=== PATIENT | male | born 1935 | race Caucasian/White ===

== ENCOUNTER 2018-05-09 07:57 | Emergency (ER) | payer MEDICARE, BC ==
[2018-05-09 08:13] VITALS: BP 118/71
[2018-05-09] MEDS ORDERED: Lidocaine 2% Jelly 10 ML Urojet MUCMEM ONE (08:14)
--- NOTE | 2018-05-09 08:16 | EDM.PDOC ---
ED HPI GENERAL MEDICAL PROBLEM - General Chief Complaint: Genitourinary Problem Stated Complaint: UNABLE TO VOID THE LAST 12 HOURS Time Seen by Provider: 05/09/18 08:09 Source of Information: Reports: Patient, Family (), RN Notes Reviewed History Limitations: Reports: No Limitations - History of Present Illness INITIAL COMMENTS - FREE TEXT/NARRATIVE: According to the patient and his , the patient was having some difficulty urinating yesterday, with a delayed and decreased stream. He was then unable to urinate at all after around 20:00, and started feeling some discomfort around 22 :00. He now presents in significant discomfort, still unable to urinate. The patient slipped and broke his distal left fibula on 04/29/2018. He is scheduled for ORIF per Dr. Fernandez tomorrow, and has been on tramadol, but he denies taking any anticholinergic medications. Review of the medical records indicates that the patient is on tamsulosin ( Flomax), most likely due to BPH, although the patient was unaware that he has a prostate issue. The patient has a history of bladder cancer, treated by Dr. Souleymane Cotton. The patient's PCP is Dr. Neely. Pelvic Pain Score (Numeric/FACES): 7 - Related Data Allergies Allergy/AdvReac Type Severity Reaction Status Date / Time codeine Allergy Rash Verified 05/07/18 13:23 Home Meds: Home Meds Aspirin [Halfprin] 81 mg PO DAILY 05/21/15 [History] Lisinopril 2.5 mg PO DAILY 05/21/15 [History] Metoprolol Succinate [Toprol XL] 25 mg PO DAILY 05/21/15 [History] Omeprazole 20 mg PO DAILY 05/21/15 [History] Simvastatin [Zocor] 40 mg PO DAILY 05/21/15 [History] metFORMIN HCl [Metformin HCl] 500 mg PO BID 05/21/15 [History] Tamsulosin [Flomax] 0.4 mg PO DAILY 04/29/18 [History] traMADol [Ultram] 100 mg PO Q12H PRN 05/07/18 [History] Saxagliptin HCl [Onglyza] 5 mg PO DAILY 05/09/18 [History] Past Medical History Cardiovascular History: Reports: High Cholesterol, Hypertension Gastrointestinal History: Reports: Bowel Obstruction, GERD Genitourinary History: Reports: BPH, Renal Calculus Musculoskeletal History: Reports: Fracture (left distal fibula), Osteoarthritis Endocrine/Metabolic History: Reports: Diabetes, Type II Oncologic (Cancer) History: 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 (s/p CTx), Squamous Cell Carcinoma (face, left arm) - Infectious Disease History Infectious Disease History: Reports: Other (See Below) Other Infectious Disease History: Staph, non MRSA - Past Surgical History HEENT Surgical History: Reports: Cataract Surgery (bilateral), Detached Retina ( left), Oral Surgery (wisdom teeth extraction) GI Surgical History: Reports: Appendectomy, Colonoscopy (x 3 or 4), EGD (x 2), Other (See Below) (Exploratory laparotomy) Male Surgical History: Reports: Circumcision, Other (See Below) (Cystoscopy) Neurological Surgical History: Reports: Lumbar Spine (microdiscectomy) Musculoskeletal Surgical History: Reports: Shoulder Surgery (bilateral, open), Other (See Below) (Left foot tendon repair) Oncologic Surgical History: Reports: Other (See Below) (SCC excised from face, left arm) Social & Family History - Family History Cardiac: Reports: Heart Failure Endocrine/Metabolic: Reports: Diabetes, type II Oncologic: Reports: Colon - Tobacco Use Smoking Status *Q: Former Smoker - Caffeine Use Caffeine Use: Reports: Coffee, Tea - Alcohol Use Alcohol Use History: Yes Alcohol Use Frequency: Rarely - Recreational Drug Use Recreational Drug Use: No - Living Situation & Occupation Living situation: Reports: , with Spouse Occupation: Retired ED ROS GENERAL - Review of Systems Review Of Systems: ROS reveals no pertinent complaints other than HPI. ED EXAM, RENAL/ - Physical Exam Exam: See Below Exam Limited By: No Limitations General Appearance: Alert, WD/WN, No Apparent Distress Eye Exam: Bilateral Eye: EOMI, Normal Inspection Ears: Normal External Exam, Hearing Loss Nose: Normal Inspection Throat/Mouth: Normal Inspection, Normal Lips, Normal Voice, No Airway Compromise Head: Atraumatic, Normocephalic Neck: Normal Inspection, Full Range of Motion Respiratory/Chest: No Respiratory Distress, Lungs Clear, Normal Breath Sounds, No Accessory Muscle Use Cardiovascular: Normal Peripheral Pulses, Regular Rate, Rhythm, No Gallop, No JVD, No Murmur, No Rub GI/Abdominal: Normal Bowel Sounds, Soft, No Organomegaly, No Distention, No Abnormal Bruit, No Mass, Tender (Suprapubic only. Nontender elsewhere.), Hernia (Several, ventral), Other (Several well-healed anterior abdominal wall surgeries ) (Male) Exam: Deferred Rectal (Males) Exam: Deferred Back Exam: Normal Inspection, Full Range of Motion, NT Extremities: Normal Range of Motion, Normal Capillary Refill, Other (Left leg/ foot in splint) Neurological: Alert, Oriented, Normal Cognition, No Motor/Sensory Deficits Psychiatric: Normal Affect Skin Exam: Warm, Dry, Intact, Normal Color, No Rash Course - Vital Signs Last Recorded V/S: Last Vital Signs Temp 36.2 C 05/09/18 08:10 Pulse 82 05/09/18 08:10 Resp 20 05/09/18 08:10 BP 118/71 05/09/18 08:10 Pulse Ox 96 05/09/18 08:10 - Orders/Labs/Meds Orders: Active Orders 24 hr Category Date Time Status Bladder Scan [RC] ASDIRECTED Care 05/09/18 08:09 Active Insert Fishman Catheter [Insert Urinary Catheter] [OM.PC] Care 05/09/18 08:15 Ordered Q24H Urinary Catheter Assessment [RC] ASDIRECTED Care 05/09/18 08:15 Active Meds: Medications Discontinued Medications Generic Name Dose Route Start Last Admin Trade Name Freq PRN Reason Stop Dose Admin Lidocaine HCl 10 ml 05/09/18 08:14 05/09/18 08:21 Xylocaine 2% Jelly MUCMEM 05/09/18 08:15 10 ml ONETIME ONE Administration - Re-Assessments/Exams Free Text/Narrative Re-Assessment/Exam: 05/09/18 08:15 Notified by Charu GREGORY that the bladder scan revealed 516 mL of postvoid urinary retention. The cause is unclear, but is likely due to BPH. It does not sound like the patient has taken any anticholinergics recently. I have ordered a Urojet and a Fishman catheter to a leg bag, and will have the patient follow-up with his Urologist, Dr. Cotton. He is to undergo ORIF of his left ankle per Dr. Fernandez tomorrow; I don't see that the Fishman catheter placed today will impact that at all. Departure - Departure Time of Disposition: 08:40 Disposition: Home, Self-Care 01 Condition: Good Clinical Impression: Urinary retention - Discharge Information *PRESCRIPTION DRUG MONITORING PROGRAM REVIEWED*: Not Applicable *COPY OF PRESCRIPTION DRUG MONITORING REPORT IN PATIENT BRENNEN: Not Applicable Instructions: Acute Urinary Retention, Male, [id number] Referrals: Damon Sorto MD [Primary Care Provider] - Souleymane Cotton MD [Physician] - Forms: ED Department Discharge Additional Instructions: You were seen in the emergency room after being unable to urinate since around 8 :00 last night. In the ER, a bladder scan found 516 mL of retained urine. A Fishman catheter was placed to a leg bag. Empty the leg bag periodically, as directed by the nurse. The cause of your inability to urinate is unclear, but is likely due to an enlarged prostate. Follow-up with your Urologist, Dr. Souleymane Cotton, at the next available appointment. If any other problems, please do not hesitate to return to the ER. - My Orders Last 24 Hours: My Active Orders 05/09/18 08:09 Bladder Scan [RC] ASDIRECTED 05/09/18 08:15 Insert Fishman Catheter [Insert Urinary Catheter] [OM.PC] Q24H Urinary Catheter Assessment [RC] ASDIRECTED - Assessment/Plan Last 24 Hours: My Active Orders 05/09/18 08:09 Bladder Scan [RC] ASDIRECTED 05/09/18 08:15 Insert Fishman Catheter [Insert Urinary Catheter] [OM.PC] Q24H Urinary Catheter Assessment [RC] ASDIRECTED
== END 2018-05-09 09:23 | disposition home or self-care (01) ==
LOC: JD.ED 07:57
DX: R33.9 Retention of urine, unspecified (principal); E78.00 Pure hypercholesterolemia, unspecified; I10 Essential (primary) hypertension; E11.9 Type 2 diabetes mellitus without complications; Z79.84 Long term (current) use of oral hypoglycemic drugs; Z87.891 Personal history of nicotine dependence; Z79.82 Long term (current) use of aspirin; Z79.899 Other long term (current) drug therapy
CPT/HCPCS: 51702; 99283; 99284-25

== ENCOUNTER 2018-05-10 10:46 | Inpatient (IN) | payer MEDICARE, BC ==
[~2018-05-10 10:46] MED LIST: Lactated Ringers 1,000 ML IV SCH; Lidocaine 1%/Sod Bicarbonate in NS 8.4% 1 ML Syringe IDERM PRN; Sodium Chloride 0.9% 10 ML Syringe FLUSH PRN
--- NOTE | 2018-05-10 11:31 | PCM.PREANE ---
Preanesthetic Assessment - Procedure Proposed Procedure: orif left bimalleolar fx with syndosmosis - Anesthesia/Transfusion/Family Hx Anesthesia History: Prior Anesthesia Without Reaction Family History of Anesthesia Reaction: No Transfusion History: No Prior Transfusion(s) - Review of Systems General: No Symptoms Pulmonary: Shortness of Breath (always short of breath) Cardiovascular: Dyspnea on Exertion Gastrointestinal: No Symptoms Neurological: No Symptoms Other: Reports: Diabetes - Physical Assessment NPO Status Date: 05/10/18 NPO Status Time: 00:30 (sip with pill) Pulse: 71 O2 Sat by Pulse Oximetry: 95 Respiratory Rate: 16 Blood Pressure: 111/64 Temperature: 98.8 F Height: 5 ft 6 in Weight: 84.368 kg ASA Class: 3 Mental Status: Alert & Oriented x3 Airway Class: Mallampati = 2 Dentition: Reports: Normal Dentition Thyro-Mental Finger Breadths: 3 Mouth Opening Finger Breadths: 3 ROM/Head Extension: Full Lungs: Clear to Auscultation, Normal Respiratory Effort Cardiovascular: Regular Rate, Regular Rhythm - Lab Values: Laboratory Last Values MRSA (PCR) Negative 05/05/18 17:20 - Allergies Allergies/Adverse Reactions: Allergies Allergy/AdvReac Type Severity Reaction Status Date / Time codeine Allergy Rash Verified 05/07/18 13:23 - Blood Blood Available: No - Anesthesia Plan Beta Erendira: Metoprolol Med Last Dose Date: 05/10/18 Med Last Dose Time: 07:30 - Acknowledgements Anesthesia Type Planned: General Anesthesia, Spinal Pt an Appropriate Candidate for the Planned Anesthesia: Yes Alternatives and Risks of Anesthesia Discussed w Pt/Guardian: Yes Pt/Guardian Understands and Agrees with Anesthesia Plan: Yes PreAnesthesia Questionnaire HEENT History: Reports: Cataract, Retinal Detachment Cardiovascular History: Reports: High Cholesterol, Hypertension Respiratory History: Reports: SOB Gastrointestinal History: Reports: Bowel Obstruction, GERD Other Gastrointestinal History: 2013 - chronic constipation due to narcotics Genitourinary History: Reports: BPH, Renal Calculus, Other (See Below) (carter put in yesterday in ER because couldn't void- enlarged prostate) 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 Musculoskeletal History: Reports: Fracture (left distal fibula), Osteoarthritis Other Musculoskeletal History: left fibula fracture Neurological History: Reports: None Psychiatric History: Reports: None Endocrine/Metabolic History: Reports: Diabetes, Type II Hematologic History: Reports: None Immunologic History: Reports: None Oncologic (Cancer) History: 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 (s/p CTx), Squamous Cell Carcinoma (face, left arm) - Infectious Disease History Infectious Disease History: Reports: Other (See Below) Other Infectious Disease History: Staph, non MRSA - Past Surgical History HEENT Surgical History: Reports: Cataract Surgery (bilateral), Detached Retina ( left), Oral Surgery (wisdom teeth extraction) GI Surgical History: Reports: Appendectomy, Colonoscopy (x 3 or 4), EGD (x 2), Other (See Below) (Exploratory laparotomy) Male Surgical History: Reports: Circumcision, Other (See Below) (Cystoscopy) Neurological Surgical History: Reports: Lumbar Spine (microdiscectomy) Musculoskeletal Surgical History: Reports: Shoulder Surgery (bilateral, open), Other (See Below) (Left foot tendon repair) Oncologic Surgical History: Reports: Other (See Below) (SCC excised from face, left arm) - SUBSTANCE USE Smoking Status *Q: Former Smoker Tobacco Use Within Last Twelve Months: No Second Hand Smoke Exposure: No Days Per Week of Alcohol Use: 0 Recreational Drug Use History: No - HOME MEDS Home Medications: Home Meds Lisinopril 2.5 mg PO DAILY 05/21/15 [History] Metoprolol Succinate [Toprol XL] 25 mg PO DAILY 05/21/15 [History] Omeprazole 20 mg PO DAILY 05/21/15 [History] Simvastatin [Zocor] 40 mg PO DAILY 05/21/15 [History] metFORMIN HCl [Metformin HCl] 500 mg PO BID 05/21/15 [History] Tamsulosin [Flomax] 0.4 mg PO DAILY 04/29/18 [History] traMADol [Ultram] 100 mg PO Q12H PRN 05/07/18 [History] Acetaminophen [Tylenol Extra Strength] 1,000 mg PO ASDIRECTED PRN 05/10/18 [ History] Acetaminophen/HYDROcodone [Paoli 325-5 MG] 1 - 2 tab PO Q6H PRN #40 tablet 05/10 [Rx] Aspirin 325 mg PO BID #84 tab 05/10/18 [Rx] Aspirin [Lo-Dose Aspirin EC] 81 mg PO DAILY 05/10/18 [History] - CURRENT (IN HOUSE) MEDS Current Meds: Current Medications Lactated Ringer's (Ringers, Lactated) 1,000 mls @ 125 mls/hr IV ASDIRECTED LARRY Stop: 05/10/18 23:00 Lidocaine/Sodium Bicarbonate (Buffered Lidocaine 1% In Ns 8.4%) 0.25 ml IDERM ONETIME PRN PRN Reason: Prior to IV Start Stop: 05/10/18 18:00 Sodium Chloride (Saline Flush) 10 ml FLUSH ASDIRECTED PRN PRN Reason: Keep Vein Open Stop: 05/10/18 18:00
[2018-05-10] MEDS ORDERED: HYDROmorphone 0.5 MG/0.5 ML Syringe IVPUSH ONE (12:23)
[2018-05-10] MEDS ORDERED: Bupivacaine 0.25% 30 ML SDV ONE (13:15)
[2018-05-10] MEDS ORDERED: Ondansetron 4 MG/2 ML SDV ONE (13:28)
[2018-05-10] MEDS ORDERED: Lidocaine 1% 4 ML ONE (13:29)
[2018-05-10] MEDS ORDERED: Propofol 200 MG/20 ML SDV ONE (13:29)
[2018-05-10] MEDS ORDERED: fentaNYL 100 MCG/2 ML SDV ONE (13:29)
[2018-05-10] MEDS ORDERED: Morphine PF 10 MG/10 ML SDV ONE (13:31)
[2018-05-10] MEDS ORDERED: Phenylephrine/Normal Saline 100 MCG/ML 10 ML Syringe ONE (14:28)
[2018-05-10] MEDS ORDERED: ePHEDrine/Normal Saline 25 MG/5 ML Syringe ONE (14:28)
--- NOTE | 2018-05-10 15:21 | PCM.POSTAN ---
POST ANESTHESIA ASSESSMENT - MENTAL STATUS Mental Status: Alert, Oriented - VITAL SIGNS Pulse Rate: 73 SaO2: 97 Resp Rate: 16 Blood Pressure: 80/45 Temperature: 36.6 C - RESPIRATORY Respiratory Status: Respiratory Rate WNL, Airway Patent, O2 Saturation Stable, Supplemental Oxygen - CARDIOVASCULAR CV Status: Pulse Rate WNL, Blood Pressure Stable - GASTROINTESTINAL GI Status: No Symptoms - PAIN Pain Score: 0 - POST OP HYDRATION Hydration Status: Adequate & Stable - OBSERVATIONS Free Text/Narrative:: no anesthesia complications noted
--- NOTE | 2018-05-10 15:31 | CR ---
Left ankle: Five fluoroscopic spot views were obtained of the left ankle utilizing C-arm device. Comparison: Previous left ankle radiographic study of 04/29/18. Plate and screws are seen within the distal fibula affixing previous fracture. Two screws affix the fibula to the tibia. Ankle mortise is symmetric. Fluoroscopy time is given as 19.2 seconds. Impression: 1. Procedural study as described above. Diagnostic code #2
[2018-05-10] MEDS ORDERED: Acetaminophen/HYDROcodone 325-5 MG Tab PO PRN (17:07)
[2018-05-11] MEDS: Acetaminophen/HYDROcodone 325-5 MG Tab PO PRN ×4 (01:42→20:51)
[2018-05-11] MEDS: Cyclobenzaprine 10 MG Tab PO PRN (06:58)
[2018-05-11] MEDS ORDERED: LORazepam 2 MG/ML SDV IV ONE (08:48)
[2018-05-11] MEDS: Docusate Sodium 100 MG Cap PO SCH ×2 (08:59→20:50)
[2018-05-11] MEDS: Pantoprazole 40 MG Tab.CR PO SCH (08:59)
[2018-05-11] MEDS ORDERED: metFORMIN 500 MG Tab PO SCH (09:00)
[2018-05-11] MEDS ORDERED: Aspirin 325 MG Tab.EC PO ONE (09:00)
[2018-05-11] MEDS ORDERED: Lisinopril 2.5 MG Tab PO SCH (09:00)
[2018-05-11] MEDS: Tamsulosin 0.4 MG Cap.ER PO SCH (09:00)
[2018-05-11] MEDS: Metoprolol Succinate 25 MG Tab.ER PO SCH (09:00)
[2018-05-11] MEDS ORDERED: Sodium Chloride 0.9% 500 ML IV ONE (09:23)
--- NOTE | 2018-05-11 09:41 | PCM48HPAN ---
Post Anesthesia Note - EVALUATION WITHIN 48HRS OF ANESTHETIC Vital Signs in Normal Range: Yes Patient Participated in Evaluation: Yes Respiratory Function Stable: Yes Airway Patent: Yes Cardiovascular Function Stable: Yes Hydration Status Stable: Yes Pain Control Satisfactory: Yes Nausea and Vomiting Control Satisfactory: Yes Mental Status Recovered: Yes - COMMENTS/OBSERVATIONS Free Text/Narrative:: Patient denies any anesthetic complications. His only complaint is that he is having quite a bit of pain. Pt doing well resting in bed.
[2018-05-11] MEDS: Insulin Lispro 100 UNIT/ML 10 ML VIAL SUBCUT SCH ×3 (12:56→21:12)
[2018-05-11] MEDS ORDERED: Sodium Chloride 0.9% 500 ML IV SCH (15:00)
--- NOTE | 2018-05-11 18:44 | PCM.CONS ---
H&P History of Present Illness - General Date of Service: 05/11/18 Admit Problem/Dx: Admission Diagnosis/Problem Admission Diagnosis/Problem Ankle fracture Source of Information: Patient, Provider History Limitations: Reports: No Limitations - History of Present Illness Initial Comments - Free Text/Narative: Noman is an 83 yo male patient of Dr. Fernandez who is post-operative day 1 of L ankle ORIF. Hospital medicine was consulted for post-operative medical care. At this time he is stable. Pain is controlled. He denies any chest pain, shortness of breath, palpitations, nausea, vomiting. He carries a history of: CAD, HTN, HLD, DM2, Bladder CA, urolithiasis, SBO, OA. He is a full code. His PCP is Dr. Emerson Strange. Left ANkle Pain Score (Numeric/FACES): 8 - Related Data Allergies/Adverse Reactions: Allergies Allergy/AdvReac Type Severity Reaction Status Date / Time codeine Allergy Rash Verified 05/10/18 16:49 Home Medications: Home Meds Lisinopril 2.5 mg PO DAILY 05/21/15 [History] Metoprolol Succinate [Toprol XL] 25 mg PO DAILY 05/21/15 [History] Omeprazole 20 mg PO DAILY 05/21/15 [History] Simvastatin [Zocor] 40 mg PO DAILY 05/21/15 [History] metFORMIN HCl [Metformin HCl] 500 mg PO BID 05/21/15 [History] Tamsulosin [Flomax] 0.4 mg PO DAILY 04/29/18 [History] Acetaminophen [Tylenol Extra Strength] 1,000 mg PO ASDIRECTED PRN 05/10/18 [ History] Acetaminophen/HYDROcodone [[place] 325-5 MG] 1 - 2 tab PO Q6H PRN #40 tablet 05/10 [Rx] Aspirin 325 mg PO BID #84 tab 05/10/18 [Rx] Saxagliptin HCl [Onglyza] 5 mg PO DAILY 05/10/18 [History] Past Medical History HEENT History: Reports: Cataract, Retinal Detachment Cardiovascular History: Reports: CAD, High Cholesterol, Hypertension Respiratory History: Reports: SOB Gastrointestinal History: Reports: Bowel Obstruction, GERD Other Gastrointestinal History: 2013 - chronic constipation due to narcotics Genitourinary History: Reports: BPH, Renal Calculus, Other (See Below) G[employer]ER History: Reports: None Musculoskeletal History: Reports: Fracture, Osteoarthritis Other Musculoskeletal History: left fibula fracture Neurological History: Reports: None Psychiatric History: Reports: None Endocrine/Metabolic History: Reports: Diabetes, Type II, Obesity/BMI 30+ Hematologic History: Reports: None Immunologic History: Reports: None Oncologic (Cancer) History: 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, Squamous Cell Carcinoma - Infectious Disease History Infectious Disease History: Reports: Other (See Below) Other Infectious Disease History: Staph, non MRSA - Past Surgical History Head Surgeries/Procedures: Reports: None HEENT Surgical History: Reports: Cataract Surgery, Detached Retina, Oral Surgery Respiratory Surgical History: Reports: None GI Surgical History: Reports: Appendectomy, Cholecystectomy, Colonoscopy, EGD, Other (See Below) Male Surgical History: Reports: Circumcision, Other (See Below) Endocrine Surgical History: Reports: None Neurological Surgical History: Reports: Discectomy, Lumbar Spine Musculoskeletal Surgical History: Reports: Shoulder Surgery, Other (See Below) Other Musculoskeletal Surgeries/Procedures:: neck surgery Oncologic Surgical History: Reports: Other (See Below) Dermatological Surgical History: Reports: Other (See Below) Social & Family History - Family History Family Medical History: Noncontributory Cardiac: Reports: Heart Failure Endocrine/Metabolic: Reports: Diabetes, type II Oncologic: Reports: Colon - Tobacco Use Smoking Status *Q: Former Smoker Used Tobacco, but Quit: Yes Month/Year Tobacco Last Used: 1974 Second Hand Smoke Exposure: No - Caffeine Use Caffeine Use: Reports: Coffee, Tea - Alcohol Use Days Per Week of Alcohol Use: 0 - Recreational Drug Use Recreational Drug Use: No Drug Use in Last 12 Months: No - Living Situation & Occupation Living situation: Reports: , with Spouse Occupation: Retired H&P Review of Systems - Review of Systems: Review Of Systems: See Below General: Reports: No Symptoms. Denies: Fever, Chills HEENT: Reports: No Symptoms Pulmonary: Reports: No Symptoms. Denies: Shortness of Breath, Cough Cardiovascular: Reports: Blood Pressure Problem. Denies: Chest Pain Gastrointestinal: Reports: No Symptoms. Denies: Abdominal Pain, Diarrhea, Nausea, Vomiting Genitourinary: Reports: No Symptoms Musculoskeletal: Reports: No Symptoms Skin: Reports: No Symptoms Psychiatric: Reports: No Symptoms Neurological: Reports: Difficulty Walking, Weakness, Gait Disturbance Hematologic/Lymphatic: Reports: No Symptoms Immunologic: Reports: No Symptoms Exam - Exam Exam: See Below - Vital Signs Vital Signs: Last Vital Signs Temp 98.2 F 05/11/18 15:13 Pulse 78 05/11/18 15:13 Resp 16 05/11/18 15:13 BP 105/57 L 05/11/18 15:13 Pulse Ox 95 05/11/18 15:35 Weight: 187 lb - Exam Quality Assessment: Supplemental Oxygen (2L NC), Urinary Catheter, DVT Prophylaxis General: Alert, Oriented, 4 HEENT: Conjunctiva Clear, EACs Clear, EOMI, Hearing Intact, Mucosa Moist & [place] , Nares Patent, Normal Nasal Septum, Posterior Pharynx Clear, PERRLA Neck: Supple, Trachea Midline, 2 Lungs: Clear to Auscultation, Normal Respiratory Effort Cardiovascular: Regular Rate, Regular Rhythm GI/Abdominal Exam: Normal Bowel Sounds, Soft, Non-Tender, No Organomegaly, No Distention, No Abnormal Bruit, No Mass, Pelvis Stable (Male) Exam: Deferred Rectal (Males) Exam: Deferred Back Exam: Normal Inspection Extremities: Normal Inspection, Non-Tender, No Pedal Edema, Normal Capillary Refill, Limited Range of Motion (s/p L ankle ORIF), Other (Ankle pain s/p L ankle ORIF) Peripheral Pulses: 2+: Posterior Tibial (L), Posterior Tibial (R), Dorsalis Pedis (L), Dorsalis Pedis (R) Skin: Warm, Dry, Intact, Other (bandage dry and intact) Neurological: Cranial Nerves Intact (grossly) Psychiatric: Alert, Normal Affect, Normal Mood - Patient Data Lab Results Last 24 hrs: Laboratory Results - last 24 hr 05/10/18 05/11/18 05/11/18 Range/Units 21:08 06:53 07:00 WBC (4.23-9.07) K/mm3 RBC (4.63-6.08) M/mm3 Hgb (13.7-17.5) gm/L Hct (40.1-51.0) % MCV (79.0-92.2) fl MCH (25.7-32.2) pg MCHC (32.2-35.5) g/dl RDW Std Deviation (35.1-43.9) fL Plt Count (163-337) K/mm3 MPV (9.4-12.3) fl Neut % (Auto) (34.0-67.9) % Lymph % (Auto) (21.8-53.1) % Boyd % (Auto) (5.3-12.2) % Eos % (Auto) (0.8-7.0) Baso % (Auto) (0.1-1.2) % Neut # (Auto) (1.78-5.38) K/mm3 Lymph # (Auto) (1.32-3.57) K/mm3 Boyd # (Auto) (0.30-0.82) K/mm3 Eos # (Auto) (0.04-0.54) K/mm3 Baso # (Auto) (0.01-0.08) K/mm3 Manual Slide Review Sodium 137 (136-145) mEq/L Potassium 4.8 (3.5-5.1) mEq/L Chloride 102 (98-107) mEq/L Carbon Dioxide 25 (21-32) mEq/L Anion Gap 14.8 (5-15) BUN 27 H (7-18) mg/dL Creatinine 1.4 H (0.7-1.3) mg/dL Est Cr Clr Drug Dosing 35.44 mL/min Estimated GFR (MDRD) 48 (>60) mL/min BUN/Creatinine Ratio 19.3 H (14-18) Glucose 115 (83-115) mg/dL POC Glucose 109 118 H (83-110) mg/dL Calcium 9.2 (8.5-10.1) mg/dL Magnesium (1.8-2.4) mg/dl Total Bilirubin 0.6 (0.2-1.0) mg/dL AST 14 L (15-37) U/L ALT 21 (16-63) U/L Alkaline Phosphatase 89 (46-116) U/L Total Protein 6.8 (6.4-8.2) g/dl Albumin 3.0 L (3.4-5.0) g/dl Globulin 3.8 gm/dL Albumin/Globulin Ratio 0.8 L (1-2) Urine Color (Yellow) Urine Appearance (Clear) Urine pH (5.0-8.0) Ur Specific [place] (1.005-1.030) Urine Protein (Negative) Urine Glucose (UA) (Negative) Urine Ketones (Negative) Urine Occult Blood (Negative) Urine Nitrite (Negative) Urine Bilirubin (Negative) Urine Urobilinogen (0.2-1.0) Ur Leukocyte Esterase (Negative) Urine RBC (0-5) /hpf Urine WBC (0-5) /hpf Ur Epithelial Cells (0-5) /hpf Urine Bacteria (FEW) /hpf Urine Mucus (FEW) /hpf 05/11/18 05/11/18 05/11/18 Range/Units 09:45 09:45 11:12 WBC 7.88 (4.23-9.07) K/mm3 RBC 4.08 L (4.63-6.08) M/mm3 Hgb 11.8 L (13.7-17.5) gm/L Hct 36.3 L (40.1-51.0) % MCV 89.0 (79.0-92.2) fl MCH 28.9 (25.7-32.2) pg MCHC 32.5 (32.2-35.5) g/dl RDW Std Deviation 41.3 (35.1-43.9) fL Plt Count 206 (163-337) K/mm3 MPV 9.6 (9.4-12.3) fl Neut % (Auto) 72.0 H (34.0-67.9) % Lymph % (Auto) 8.4 L (21.8-53.1) % Boyd % (Auto) 18.3 H (5.3-12.2) % Eos % (Auto) 0.9 (0.8-7.0) Baso % (Auto) 0.3 (0.1-1.2) % Neut # (Auto) 5.68 H (1.78-5.38) K/mm3 Lymph # (Auto) 0.66 L (1.32-3.57) K/mm3 Boyd # (Auto) 1.44 H (0.30-0.82) K/mm3 Eos # (Auto) 0.07 (0.04-0.54) K/mm3 Baso # (Auto) 0.02 (0.01-0.08) K/mm3 Manual Slide Review Abnormal smear Sodium (136-145) mEq/L Potassium (3.5-5.1) mEq/L Chloride (98-107) mEq/L Carbon Dioxide (21-32) mEq/L Anion Gap (5-15) BUN (7-18) mg/dL Creatinine (0.7-1.3) mg/dL Est Cr Clr Drug Dosing mL/min Estimated GFR (MDRD) (>60) mL/min BUN/Creatinine Ratio (14-18) Glucose (83-115) mg/dL POC Glucose 124 H (83-110) mg/dL Calcium (8.5-10.1) mg/dL Magnesium 2.1 (1.8-2.4) mg/dl Total Bilirubin (0.2-1.0) mg/dL AST (15-37) U/L ALT (16-63) U/L Alkaline Phosphatase (46-116) U/L Total Protein (6.4-8.2) g/dl Albumin (3.4-5.0) g/dl Globulin gm/dL Albumin/Globulin Ratio (1-2) Urine Color (Yellow) Urine Appearance (Clear) Urine pH (5.0-8.0) Ur Specific [place] (1.005-1.030) Urine Protein (Negative) Urine Glucose (UA) (Negative) Urine Ketones (Negative) Urine Occult Blood (Negative) Urine Nitrite (Negative) Urine Bilirubin (Negative) Urine Urobilinogen (0.2-1.0) Ur Leukocyte Esterase (Negative) Urine RBC (0-5) /hpf Urine WBC (0-5) /hpf Ur Epithelial Cells (0-5) /hpf Urine Bacteria (FEW) /hpf Urine Mucus (FEW) /hpf 05/11/18 Range/Units 13:28 WBC (4.23-9.07) K/mm3 RBC (4.63-6.08) M/mm3 Hgb (13.7-17.5) gm/L Hct (40.1-51.0) % MCV (79.0-92.2) fl MCH (25.7-32.2) pg MCHC (32.2-35.5) g/dl RDW Std Deviation (35.1-43.9) fL Plt Count (163-337) K/mm3 MPV (9.4-12.3) fl Neut % (Auto) (34.0-67.9) % Lymph % (Auto) (21.8-53.1) % [place] % (Auto) (5.3-12.2) % Eos % (Auto) (0.8-7.0) Baso % (Auto) (0.1-1.2) % Neut # (Auto) (1.78-5.38) K/mm3 Lymph # (Auto) (1.32-3.57) K/mm3 [place] # (Auto) (0.30-0.82) K/mm3 Eos # (Auto) (0.04-0.54) K/mm3 Baso # (Auto) (0.01-0.08) K/mm3 Manual Slide Review Sodium (136-145) mEq/L Potassium (3.5-5.1) mEq/L Chloride (98-107) mEq/L Carbon Dioxide (21-32) mEq/L Anion Gap (5-15) BUN (7-18) mg/dL Creatinine (0.7-1.3) mg/dL Est Cr Clr Drug Dosing mL/min Estimated GFR (MDRD) (>60) mL/min BUN/Creatinine Ratio (14-18) Glucose (83-115) mg/dL POC Glucose (83-110) mg/dL Calcium (8.5-10.1) mg/dL Magnesium (1.8-2.4) mg/dl Total Bilirubin (0.2-1.0) mg/dL AST (15-37) U/L ALT (16-63) U/L Alkaline Phosphatase (46-116) U/L Total Protein (6.4-8.2) g/dl Albumin (3.4-5.0) g/dl Globulin gm/dL Albumin/Globulin Ratio (1-2) Urine Color Light yellow (Yellow) Urine Appearance Clear (Clear) Urine pH 7.0 (5.0-8.0) Ur Specific [place] 1.015 (1.005-1.030) Urine Protein Negative (Negative) Urine Glucose (UA) Negative (Negative) Urine Ketones Negative (Negative) Urine Occult Blood Trace-lysed H (Negative) Urine Nitrite Negative (Negative) Urine Bilirubin Negative (Negative) Urine Urobilinogen 1.0 (0.2-1.0) Ur Leukocyte Esterase Trace H (Negative) Urine RBC 0-5 (0-5) /hpf Urine WBC 0-5 (0-5) /hpf Ur Epithelial Cells 0-5 (0-5) /hpf Urine Bacteria Occasional (FEW) /hpf Urine Mucus Not seen (FEW) /hpf Result Diagrams: 02/12/19 09:45 05/11/18 06:53 Consult PN Assessment/Plan POD#: 1 Procedures: Procedures ASSAY OF LIPASE (05/21/15) ASSAY OF MAGNESIUM (05/21/15) ASSAY OF PHOSPHORUS (05/21/15) ASSAY OF TROPONIN QUANT (05/21/15) CARDIOVASCULAR STRESS TEST (10/16/17) COMPLETE CBC W/AUTO DIFF WBC (05/21/15) COMPREHEN METABOLIC PANEL (05/21/15) CT ABD & PELV W/CONTRAST (05/21/15) CT THORAX W/O DYE (05/30/15) CULTURE SCREEN ONLY (09/04/15) EMERGENCY DEPT VISIT (04/29/18) EMERGENCY DEPT VISIT (05/21/15) GLUCOSE BLOOD TEST (05/21/15) HT MUSCLE IMAGE SPECT MULT (10/16/17) HYDRATE IV INFUSION ADD-ON (05/21/15) OFFICE/OUTPATIENT VISIT EST (09/04/15) OT EVALUATION (05/21/15) PT EVALUATION (05/21/15) ROUTINE VENIPUNCTURE (05/21/15) STREP A AG IA (09/04/15) THER/PROPH/DIAG INJ IV PUSH (05/21/15) TX/PRO/DX INJ NEW DRUG ADDON (05/21/15) URINALYSIS AUTO W/SCOPE (05/21/15) X-RAY EXAM OF ABDOMEN (05/21/15) X-RAY EXAM OF ANKLE (04/29/18) (1) Status post ORIF of fracture of ankle SNOMED Code(s): 356572343 Code(s): Z96.7 - PRESENCE OF OTHER BONE AND TENDON IMPLANTS; Z87.81 - PERSONAL HISTORY OF (HEALED) TRAUMATIC FRACTURE Current Visit: Yes Problem List Initiated/Reviewed/Updated: Yes Plan: I/P: Acute: S/P left ankle ORIF- post-operative day 1 -DVT prophylaxis and pain management per primary care team -PT/OT -IS/RT -Monitor oxygen saturation -Titrate oxygen as needed -Vital signs stable -Monitor labs: -Hgb 14.8 -GFR 60 -Pain management PRN Generalized Weakness w/ h/o fall -Uses FWW and wheelchair at home -Fell and fractured L ankle on April 29 -2 assist for transfers and ambulation per nursing -PT/OT recommend --> recommend SNF vs. [facility] -CM/SW for placement Chronic: CAD HTN HLD DM2 Bladder CA h/o Urolithiasis h/o SBO OA Plan: CM for discharge planning Routine AM labs GI/DVT/PE prophylaxis Home medications as indicated Other orders as listed above Routine AM labs She is a full code. PCP is Dr. Neely. Thank you for allowing us to participate in the care of this patient!
[2018-05-11] MEDS: Simvastatin 40 MG Tab PO SCH (20:51)
[2018-05-11] MEDS: Aspirin 325 MG Tab.EC PO SCH (20:51)
[2018-05-12] MEDS: Acetaminophen/HYDROcodone 325-5 MG Tab PO PRN ×4 (03:15→20:16)
[2018-05-12] MEDS: Insulin Lispro 100 UNIT/ML 10 ML VIAL SUBCUT SCH ×4 (06:01→21:34)
--- NOTE | 2018-05-12 08:12 | PCM.CONSN ---
- General Info Date of Service: 05/12/18 Admission Dx/Problem (Free Text): Admission Diagnosis/Problem Admission Diagnosis/Problem Ankle fracture Subjective Update: From a hospitalist standpoint Noman is doing much better today. He has been ambulating and working with therapies. He reports pain is controlled but he occasionally has spasms that exacerbate it, although he does report those are improving in severity and frequency as well. He has reportedly been given flexeril for this. Labs remain stable to improved. We continue to hold his metformin and lisinopril. Fishman is in place from episode of urinary retention on 05/09/18. Will attempt to contact patients urologist for guidance. Otherwise awaiting placement. He is still on O2 and we are attempting to wean. He is down to 1L now. Functional Status: Reports: Pain Controlled, Tolerating Diet, Ambulating, Urinating, Incentive Spirometry. Denies: New Symptoms - Review of Systems General: Reports: Weakness (improving ), Fatigue (improving ). Denies: Fever, Chills HEENT: Reports: No Symptoms. Denies: Headaches, Sore Throat Pulmonary: Reports: No Symptoms. Denies: Shortness of Breath, Pleuritic Chest Pain, Cough, Sputum, Wheezing Cardiovascular: Reports: No Symptoms. Denies: Chest Pain, Palpitations, Dyspnea on Exertion, Edema Gastrointestinal: Reports: No Symptoms. Denies: Abdominal Pain, Constipation, Diarrhea, Nausea, Vomiting Genitourinary: Reports: No Symptoms Musculoskeletal: Reports: Joint Pain (ankle - improving ) Skin: Reports: No Symptoms Neurological: Reports: No Symptoms, Difficulty Walking, Gait Disturbance. Denies: Confusion, Seizure, Trouble Speaking, Change in Speech Psychiatric: Reports: No Symptoms - Patient Data Vitals - Most Recent: Last Vital Signs Temp 99.0 F 05/12/18 03:18 Pulse 71 05/12/18 03:18 Resp 16 05/12/18 03:18 BP 105/43 L 05/12/18 03:18 Pulse Ox 92 L 05/12/18 03:18 Weight - Most Recent: 187 lb I&O - Last 24 Hours: Intake & Output 05/11/18 05/12/18 05/12/18 22:59 06:59 14:59 Intake Total 2940 400 Output Total 1150 2000 Balance 1790 -1600 Lab Results Last 24 Hours: Laboratory Results - last 24 hr 05/11/18 05/11/18 05/11/18 Range/Units 09:45 09:45 10:28 WBC 7.88 (4.23-9.07) K/mm3 RBC 4.08 L (4.63-6.08) M/mm3 Hgb 11.8 L (13.7-17.5) gm/L Hct 36.3 L (40.1-51.0) % MCV 89.0 (79.0-92.2) fl MCH 28.9 (25.7-32.2) pg MCHC 32.5 (32.2-35.5) g/dl RDW Std Deviation 41.3 (35.1-43.9) fL Plt Count 206 (163-337) K/mm3 MPV 9.6 (9.4-12.3) fl Neut % (Auto) 72.0 H (34.0-67.9) % Lymph % (Auto) 8.4 L (21.8-53.1) % [place] % (Auto) 18.3 H (5.3-12.2) % Eos % (Auto) 0.9 (0.8-7.0) Baso % (Auto) 0.3 (0.1-1.2) % Neut # (Auto) 5.68 H (1.78-5.38) K/mm3 Lymph # (Auto) 0.66 L (1.32-3.57) K/mm3 [place] # (Auto) 1.44 H (0.30-0.82) K/mm3 Eos # (Auto) 0.07 (0.04-0.54) K/mm3 Baso # (Auto) 0.02 (0.01-0.08) K/mm3 Manual Slide Review Abnormal smear Sodium (136-145) mEq/L Potassium (3.5-5.1) mEq/L Chloride (98-107) mEq/L Carbon Dioxide (21-32) mEq/L Anion Gap (5-15) BUN (7-18) mg/dL Creatinine (0.7-1.3) mg/dL Est Cr Clr Drug Dosing mL/min Estimated GFR (MDRD) (>60) mL/min BUN/Creatinine Ratio (14-18) Glucose (83-115) mg/dL POC Glucose (83-110) mg/dL Calcium (8.5-10.1) mg/dL Magnesium 2.1 (1.8-2.4) mg/dl Urine Color (Yellow) Urine Appearance (Clear) Urine pH (5.0-8.0) Ur Specific [place] (1.005-1.030) Urine Protein (Negative) Urine Glucose (UA) (Negative) Urine Ketones (Negative) Urine Occult Blood (Negative) Urine Nitrite (Negative) Urine Bilirubin (Negative) Urine Urobilinogen (0.2-1.0) Ur Leukocyte Esterase (Negative) Urine RBC (0-5) /hpf Urine WBC (0-5) /hpf Ur Epithelial Cells (0-5) /hpf Urine Bacteria (FEW) /hpf Urine Mucus (FEW) /hpf Ur Random Microalbumin 6.4 (1.3-20.0) mg/L 05/11/18 05/11/18 05/11/18 Range/Units 11:12 13:28 16:50 WBC (4.23-9.07) K/mm3 RBC (4.63-6.08) M/mm3 Hgb (13.7-17.5) gm/L Hct (40.1-51.0) % MCV (79.0-92.2) fl MCH (25.7-32.2) pg MCHC (32.2-35.5) g/dl RDW Std Deviation (35.1-43.9) fL Plt Count (163-337) K/mm3 MPV (9.4-12.3) fl Neut % (Auto) (34.0-67.9) % Lymph % (Auto) (21.8-53.1) % [place] % (Auto) (5.3-12.2) % Eos % (Auto) (0.8-7.0) Baso % (Auto) (0.1-1.2) % Neut # (Auto) (1.78-5.38) K/mm3 Lymph # (Auto) (1.32-3.57) K/mm3 [place] # (Auto) (0.30-0.82) K/mm3 Eos # (Auto) (0.04-0.54) K/mm3 Baso # (Auto) (0.01-0.08) K/mm3 Manual Slide Review Sodium (136-145) mEq/L Potassium (3.5-5.1) mEq/L Chloride (98-107) mEq/L Carbon Dioxide (21-32) mEq/L Anion Gap (5-15) BUN (7-18) mg/dL Creatinine (0.7-1.3) mg/dL Est Cr Clr Drug Dosing mL/min Estimated GFR (MDRD) (>60) mL/min BUN/Creatinine Ratio (14-18) Glucose (83-115) mg/dL POC Glucose 124 H 121 H (83-110) mg/dL Calcium (8.5-10.1) mg/dL Magnesium (1.8-2.4) mg/dl Urine Color Light yellow (Yellow) Urine Appearance Clear (Clear) Urine pH 7.0 (5.0-8.0) Ur Specific [place] 1.015 (1.005-1.030) Urine Protein Negative (Negative) Urine Glucose (UA) Negative (Negative) Urine Ketones Negative (Negative) Urine Occult Blood Trace-lysed H (Negative) Urine Nitrite Negative (Negative) Urine Bilirubin Negative (Negative) Urine Urobilinogen 1.0 (0.2-1.0) Ur Leukocyte Esterase Trace H (Negative) Urine RBC 0-5 (0-5) /hpf Urine WBC 0-5 (0-5) /hpf Ur Epithelial Cells 0-5 (0-5) /hpf Urine Bacteria Occasional (FEW) /hpf Urine Mucus Not seen (FEW) /hpf Ur Random Microalbumin (1.3-20.0) mg/L 05/11/18 05/12/18 05/12/18 Range/Units 21:02 05:40 05:40 WBC 6.89 (4.23-9.07) K/mm3 RBC 3.83 L (4.63-6.08) M/mm3 Hgb 11.4 L (13.7-17.5) gm/L Hct 34.1 L (40.1-51.0) % MCV 89.0 (79.0-92.2) fl MCH 29.8 (25.7-32.2) pg MCHC 33.4 (32.2-35.5) g/dl RDW Std Deviation 40.7 (35.1-43.9) fL Plt Count 205 (163-337) K/mm3 MPV 9.2 L (9.4-12.3) fl Neut % (Auto) 67.7 (34.0-67.9) % Lymph % (Auto) 11.6 L (21.8-53.1) % [place] % (Auto) 18.1 H (5.3-12.2) % Eos % (Auto) 2.5 (0.8-7.0) Baso % (Auto) 0.1 (0.1-1.2) % Neut # (Auto) 4.66 (1.78-5.38) K/mm3 Lymph # (Auto) 0.80 L (1.32-3.57) K/mm3 [place] # (Auto) 1.25 H (0.30-0.82) K/mm3 Eos # (Auto) 0.17 (0.04-0.54) K/mm3 Baso # (Auto) 0.01 (0.01-0.08) K/mm3 Manual Slide Review Abnormal smear Sodium 139 (136-145) mEq/L Potassium 3.9 (3.5-5.1) mEq/L Chloride 105 (98-107) mEq/L Carbon Dioxide 26 (21-32) mEq/L Anion Gap 11.9 (5-15) BUN 20 H (7-18) mg/dL Creatinine 1.3 (0.7-1.3) mg/dL Est Cr Clr Drug Dosing 38.17 mL/min Estimated GFR (MDRD) 53 (>60) mL/min BUN/Creatinine Ratio 15.4 (14-18) Glucose 110 (83-115) mg/dL POC Glucose 155 H (83-110) mg/dL Calcium 8.8 (8.5-10.1) mg/dL Magnesium 2.0 (1.8-2.4) mg/dl Urine Color (Yellow) Urine Appearance (Clear) Urine pH (5.0-8.0) Ur Specific [place] (1.005-1.030) Urine Protein (Negative) Urine Glucose (UA) (Negative) Urine Ketones (Negative) Urine Occult Blood (Negative) Urine Nitrite (Negative) Urine Bilirubin (Negative) Urine Urobilinogen (0.2-1.0) Ur Leukocyte Esterase (Negative) Urine RBC (0-5) /hpf Urine WBC (0-5) /hpf Ur Epithelial Cells (0-5) /hpf Urine Bacteria (FEW) /hpf Urine Mucus (FEW) /hpf Ur Random Microalbumin (1.3-20.0) mg/L 05/12/18 Range/Units 05:46 WBC (4.23-9.07) K/mm3 RBC (4.63-6.08) M/mm3 Hgb (13.7-17.5) gm/L Hct (40.1-51.0) % MCV (79.0-92.2) fl MCH (25.7-32.2) pg MCHC (32.2-35.5) g/dl RDW Std Deviation (35.1-43.9) fL Plt Count (163-337) K/mm3 MPV (9.4-12.3) fl Neut % (Auto) (34.0-67.9) % Lymph % (Auto) (21.8-53.1) % [place] % (Auto) (5.3-12.2) % Eos % (Auto) (0.8-7.0) Baso % (Auto) (0.1-1.2) % Neut # (Auto) (1.78-5.38) K/mm3 Lymph # (Auto) (1.32-3.57) K/mm3 [place] # (Auto) (0.30-0.82) K/mm3 Eos # (Auto) (0.04-0.54) K/mm3 Baso # (Auto) (0.01-0.08) K/mm3 Manual Slide Review Sodium (136-145) mEq/L Potassium (3.5-5.1) mEq/L Chloride (98-107) mEq/L Carbon Dioxide (21-32) mEq/L Anion Gap (5-15) BUN (7-18) mg/dL Creatinine (0.7-1.3) mg/dL Est Cr Clr Drug Dosing mL/min Estimated GFR (MDRD) (>60) mL/min BUN/Creatinine Ratio (14-18) Glucose (83-115) mg/dL POC Glucose 111 H (83-110) mg/dL Calcium (8.5-10.1) mg/dL Magnesium (1.8-2.4) mg/dl Urine Color (Yellow) Urine Appearance (Clear) Urine pH (5.0-8.0) Ur Specific [place] (1.005-1.030) Urine Protein (Negative) Urine Glucose (UA) (Negative) Urine Ketones (Negative) Urine Occult Blood (Negative) Urine Nitrite (Negative) Urine Bilirubin (Negative) Urine Urobilinogen (0.2-1.0) Ur Leukocyte Esterase (Negative) Urine RBC (0-5) /hpf Urine WBC (0-5) /hpf Ur Epithelial Cells (0-5) /hpf Urine Bacteria (FEW) /hpf Urine Mucus (FEW) /hpf Ur Random Microalbumin (1.3-20.0) mg/L Med Orders - Current: Current Medications Hydrocodone Bitart/Acetaminophen ([place] 325-5 Mg) 1 - 2 tab PO Q6H PRN PRN Reason: pain Last Admin: 05/12/18 03:15 Dose: 2 tab Alogliptin Benzoate (Alogliptin) 25 mg PO DAILY [facility] Last Admin: 05/11/18 08:59 Dose: 25 mg Aspirin (Ecotrin) 325 mg PO BID [facility] Last Admin: 05/11/18 20:51 Dose: 325 mg Cyclobenzaprine HCl (Flexeril) 10 mg PO TID PRN PRN Reason: spasms Last Admin: 05/11/18 06:58 Dose: 10 mg Docusate Sodium (Colace) 100 mg PO BID [facility] Last Admin: 05/11/18 20:50 Dose: 100 mg Insulin Human Lispro (Humalog) 0 unit SUBCUT QIDACANDBED [facility]; Protocol Last Admin: 05/12/18 06:01 Dose: Not Given Metoprolol Succinate (Toprol Xl) 25 mg PO DAILY [facility] Last Admin: 05/11/18 09:00 Dose: 25 mg Pantoprazole Sodium (Protonix) 40 mg PO DAILY [facility] Last Admin: 05/11/18 08:59 Dose: 40 mg Simvastatin (Zocor) 40 mg PO BEDTIME [facility] Last Admin: 05/11/18 20:51 Dose: 40 mg Tamsulosin HCl (Flomax) 0.4 mg PO DAILY [facility] Last Admin: 05/11/18 09:00 Dose: 0.4 mg Tapentadol (Nucynta) 50 mg PO Q8H PRN PRN Reason: Pain Last Admin: 05/11/18 16:46 Dose: 50 mg Discontinued Medications Hydrocodone Bitart/Acetaminophen ([place] 325-5 Mg) 1 tab PO Q6H PRN PRN Reason: Pain Last Admin: 05/10/18 21:02 Dose: 1 tab Aspirin (Ecotrin) 325 mg PO ONETIME ONE Stop: 05/11/18 09:01 Last Admin: 05/11/18 08:30 Dose: 325 mg Bupivacaine HCl (Marcaine 0.25%) Confirm Administered Dose 30 ml .ROUTE .STK- MED ONE Stop: 05/10/18 13:16 Last Admin: 05/10/18 14:57 Dose: 20 ml Ephedrine Sulfate (Ephedrine In Ns) Confirm Administered Dose 25 mg .ROUTE .STK- MED ONE Stop: 05/10/18 14:29 Fentanyl (Sublimaze) Confirm Administered Dose 100 mcg .ROUTE .STK-MED ONE Stop: 05/10/18 13:30 Hydromorphone HCl (Dilaudid) 0.5 mg IVPUSH ONETIME ONE Stop: 05/10/18 12:24 Last Admin: 05/10/18 12:33 Dose: 0.5 mg Lactated Ringer's (Ringers, Lactated) 1,000 mls @ 125 mls/hr IV ASDIRECTED [facility] Stop: 05/10/18 23:00 Last Admin: 05/10/18 11:56 Dose: 125 mls/hr Lidocaine HCl (Xylocaine-Mpf 1%) Confirm Administered Dose 4 mls @ as directed .ROUTE .STK-MED ONE Stop: 05/10/18 13:30 Sodium Chloride (Normal Saline) 500 mls @ 999 mls/hr IV .BOLUS ONE Stop: 05/11/18 09:53 Last Admin: 05/11/18 09:55 Dose: 999 mls/hr Sodium Chloride (Normal Saline) 500 mls @ 100 mls/hr IV ONETIME [facility] Stop: 05/11/18 18:00 Last Admin: 05/11/18 15:08 Dose: 100 mls/hr Lidocaine/Sodium Bicarbonate (Buffered Lidocaine 1% In Ns 8.4%) 0.25 ml IDERM ONETIME PRN PRN Reason: Prior to IV Start Stop: 05/10/18 18:00 Lisinopril (Prinivil) 2.5 mg PO DAILY [facility] Last Admin: 05/11/18 08:58 Dose: 2.5 mg Lorazepam (Ativan) 1 mg IV ONETIME ONE Stop: 05/11/18 08:49 Last Admin: 05/11/18 09:00 Dose: 1 mg Metformin HCl (Glucophage) 500 mg PO BID [facility] Last Admin: 05/11/18 09:00 Dose: 500 mg Morphine Sulfate (Duramorph Pf) Confirm Administered Dose 10 mg .ROUTE .STK-MED ONE Stop: 05/10/18 13:32 Ondansetron HCl (Zofran) Confirm Administered Dose 4 mg .ROUTE .STK-MED ONE Stop: 05/10/18 13:29 Phenylephrine HCl (Phenylephrine In Ns 100 Mcg/Ml) Confirm Administered Dose 1 mg .ROUTE .STK-MED ONE Stop: 05/10/18 14:29 Propofol (Diprivan 20 Ml) Confirm Administered Dose 200 mg .ROUTE .STK-MED ONE Stop: 05/10/18 13:30 Sodium Chloride (Saline Flush) 10 ml FLUSH ASDIRECTED PRN PRN Reason: Keep Vein Open Stop: 05/10/18 18:00 - Exam Quality Assessment: Supplemental Oxygen (1L - attempting to wean ), DVT Prophylaxis General: Alert, Oriented, Cooperative, No Acute Distress HEENT: Pupils Equal, Pupils Reactive, EOMI, Mucous Membr. Moist/[place] Neck: Supple, Trachea Midline, No JVD Lungs: Clear to Auscultation, Normal Respiratory Effort Cardiovascular: Regular Rate, Regular Rhythm GI/Abdominal Exam: Normal Bowel Sounds, Soft, Non-Tender, No Distention, No Abnormal Bruit (Male) Exam: Deferred Back Exam: Normal Inspection, Full Range of Motion Extremities: No Pedal Edema, Normal Capillary Refill, Leg Pain, Limited Range of Motion, Other (Cast on left ankle. Cooling pack in place. ) Peripheral Pulses: 3+: Radial (L), Radial (R), Dorsalis Pedis (L), Dorsalis Pedis (R) Skin: Warm, Dry, Intact Neurological: No New Focal Deficit Psy/Mental Status: Alert, Normal Affect, Normal Mood Consult PN Assessment/Plan POD#: 2 Procedures: Procedures ASSAY OF LIPASE (05/21/15) ASSAY OF MAGNESIUM (05/21/15) ASSAY OF PHOSPHORUS (05/21/15) ASSAY OF TROPONIN QUANT (05/21/15) CARDIOVASCULAR STRESS TEST (10/16/17) COMPLETE CBC W/AUTO DIFF WBC (05/21/15) COMPREHEN METABOLIC PANEL (05/21/15) CT ABD & PELV W/CONTRAST (05/21/15) CT THORAX W/O DYE (05/30/15) CULTURE SCREEN ONLY (09/04/15) EMERGENCY DEPT VISIT (05/09/18) EMERGENCY DEPT VISIT (04/29/18) EMERGENCY DEPT VISIT (05/21/15) GLUCOSE BLOOD TEST (05/21/15) HT MUSCLE IMAGE SPECT MULT (10/16/17) HYDRATE IV INFUSION ADD-ON (05/21/15) INSERT TEMP BLADDER CATH (05/09/18) OFFICE/OUTPATIENT VISIT EST (09/04/15) OT EVALUATION (05/21/15) PT EVALUATION (05/21/15) ROUTINE VENIPUNCTURE (05/21/15) STREP A AG IA (09/04/15) THER/PROPH/DIAG INJ IV PUSH (05/21/15) TX/PRO/DX INJ NEW DRUG ADDON (05/21/15) URINALYSIS AUTO W/SCOPE (05/21/15) US URINE CAPACITY MEASURE (05/09/18) X-RAY EXAM OF ABDOMEN (05/21/15) X-RAY EXAM OF ANKLE (04/29/18) (1) Status post ORIF of fracture of ankle SNOMED Code(s): 795461774 Code(s): Z96.7 - PRESENCE OF OTHER BONE AND TENDON IMPLANTS; Z87.81 - PERSONAL HISTORY OF (HEALED) TRAUMATIC FRACTURE Priority: High Current Visit : Yes (2) History of bladder cancer SNOMED Code(s): 349530763, 392287513 Code(s): Z85.51 - PERSONAL HISTORY OF MALIGNANT NEOPLASM OF BLADDER Priority: Low Current Visit: No (3) Diabetes mellitus SNOMED Code(s): 97975133 Code(s): E11.9 - TYPE 2 DIABETES MELLITUS WITHOUT COMPLICATIONS Priority: Medium Current Visit: Yes Qualifiers: Diabetes mellitus type: type 2 Diabetes mellitus fdc insulin use: without exterminator termite use Diabetes mellitus complication status: with unspecified complications Qualified Code(s): E11.8 - Type 2 diabetes mellitus with unspecified complications (4) HLD (hyperlipidemia) SNOMED Code(s): 24680183 Code(s): E78.5 - HYPERLIPIDEMIA, UNSPECIFIED Priority: Low Current Visit : No Qualifiers: Hyperlipidemia type: unspecified Qualified Code(s): E78.5 - Hyperlipidemia , unspecified (5) Osteoarthritis SNOMED Code(s): 941554594 Code(s): M19.90 - UNSPECIFIED OSTEOARTHRITIS, UNSPECIFIED SITE Priority: Low Current Visit: No Qualifiers: Osteoarthritis location: unspecified site Osteoarthritis type: unspecified Qualified Code(s): M19.90 - Unspecified osteoarthritis, unspecified site (6) Tobacco abuse SNOMED Code(s): 914034149 Code(s): Z72.0 - TOBACCO USE Priority: Low Current Visit: No (7) Urinary retention SNOMED Code(s): 619056061 Code(s): R33.9 - RETENTION OF URINE, UNSPECIFIED Priority: Low Current Visit: No Problem List Initiated/Reviewed/Updated: Yes My Orders Last 24 Hours: My Active Orders 05/11/18 09:09 Consult to Occupational Therapy [OT Evaluation and Treatment] [CONS] Routine 05/11/18 09:10 Consult to Physical Therapy [PT Evaluation and Treatment] [CONS] Routine 05/11/18 09:24 Consult to Case Management/Hand Launderer [CONS] Routine 05/11/18 11:00 Insulin Lispro [HumaLOG] See Protocol SUBCUT QIDACANDBED 05/13/18 05:11 BASIC METABOLIC PANEL,BMP [CHEM] AM CBC WITH AUTO DIFF [HEME] AM MAGNESIUM [CHEM] AM 05/14/18 05:11 BASIC METABOLIC PANEL,BMP [CHEM] AM CBC WITH AUTO DIFF [HEME] AM MAGNESIUM [CHEM] AM 05/15/18 05:11 BASIC METABOLIC PANEL,BMP [CHEM] AM CBC WITH AUTO DIFF [HEME] AM MAGNESIUM [CHEM] AM Plan: I/P: Acute: S/P left ankle ORIF- post-operative day 2 -DVT prophylaxis and pain management per primary care team -PT/OT -IS/RT -Monitor oxygen saturation -Titrate oxygen as needed -Vital signs stable -Monitor labs: -Pre-operative Hgb 14.8; Now 11.8-->11.4 -Pre-operative GFR 50; Now 45-->48-->53 -Pre-operative creatinine 1.36; Now 1.5-->1.4-->1.3 -Pre-operative A1C 6.1% Generalized Weakness w/ h/o fall; improving -Uses FWW and wheelchair at home -Fell and fractured L ankle on April 29 -2 assist for transfers and ambulation per nursing -PT/OT recommend --> recommend SNF vs. [facility] -CM/SW for placement Urinary retention -Patient reported to ED on 05/09/18 with difficulty urinating -Fishman placed and he is discharged on it with plan to follow-up with urology -On home flomax -Patient sees Dr. Cotton - will contact for guidance -Has appointment scheduled middle of next week for monthly check-up Chronic: CAD HTN -> Hold lisinopril HLD DM2 -> sliding scale and QID AC and bedtime glucose checks. Hold metformin Bladder CA h/o Urolithiasis h/o SBO OA Plan: CM for discharge planning Routine AM labs GI/DVT/PE prophylaxis Home medications as indicated Other orders as listed above Routine AM labs She is a full code. PCP is Dr. Neely. Thank you for allowing us to participate in the care of this patient!
[2018-05-12] MEDS: Metoprolol Succinate 25 MG Tab.ER PO SCH (09:10)
[2018-05-12] MEDS: Aspirin 325 MG Tab.EC PO SCH ×2 (09:10→20:15)
[2018-05-12] MEDS: Docusate Sodium 100 MG Cap PO SCH ×2 (09:10→20:15)
[2018-05-12] MEDS: Tamsulosin 0.4 MG Cap.ER PO SCH (09:10)
[2018-05-12] MEDS: Pantoprazole 40 MG Tab.CR PO SCH (09:10)
--- NOTE | 2018-05-12 10:01 | PCM.OPNOTE ---
- General Post-Op/Procedure Note Date of Surgery/Procedure: 05/10/18 Operative Procedure(s): open reduction internal fixation of left lateral malleolus fracture with syndesmosis fixation Pre Op Diagnosis: left ankle bimalleolar equivalent fracture with syndesmosis disruption Post-Op Diagnosis: Same Anesthesia Technique: General LMA, Local Primary Surgeon: Cash Fernandez Anesthesia Provider: Morgan Buchanan Building Official: Migdalia Machado EBL in mLs: 10 Complications: None Condition: Good Free Text/Narrative:: Intake & Output 05/11/18 05/12/18 05/12/18 22:59 06:59 14:59 Intake Total 2940 400 Output Total 1150 2000 Balance 1790 -1600
[2018-05-12] MEDS: Cyclobenzaprine 10 MG Tab PO PRN (12:32)
[2018-05-12] MEDS ORDERED: Bisacodyl 5 MG Tab PO PRN (19:39)
[2018-05-12] MEDS: Simvastatin 40 MG Tab PO SCH (20:15)
[2018-05-13] MEDS: Acetaminophen/HYDROcodone 325-5 MG Tab PO PRN ×2 (04:20→11:58)
[2018-05-13] MEDS: Insulin Lispro 100 UNIT/ML 10 ML VIAL SUBCUT SCH ×2 (06:08→11:14)
--- NOTE | 2018-05-13 07:19 | PCM.CONSN ---
- General Info Date of Service: 05/13/18 Admission Dx/Problem (Free Text): Admission Diagnosis/Problem Admission Diagnosis/Problem Ankle fracture Subjective Update: In to see Noman. He is sitting up in bed. He looks good clinically and states he feels good. No nursing or patient concerns. is at bedside. Functional Status: Reports: Pain Controlled, Tolerating Diet, Ambulating, Urinating, Incentive Spirometry. Denies: New Symptoms - Review of Systems General: Reports: Weakness (improving ). Denies: Fever, Malaise, Chills HEENT: Reports: No Symptoms. Denies: Headaches, Sore Throat Pulmonary: Reports: No Symptoms. Denies: Shortness of Breath, Pleuritic Chest Pain, Cough, Sputum, Wheezing Cardiovascular: Reports: No Symptoms. Denies: Chest Pain, Palpitations, Dyspnea on Exertion, Edema, Lightheadedness Gastrointestinal: Reports: No Symptoms. Denies: Abdominal Pain, Constipation, Diarrhea, Nausea, Vomiting Genitourinary: Reports: No Symptoms. Denies: Pain Musculoskeletal: Reports: Leg Pain (left leg/ankle ) Skin: Reports: No Symptoms. Denies: Cyanosis Neurological: Reports: Difficulty Walking, Gait Disturbance. Denies: Confusion Psychiatric: Reports: No Symptoms - Patient Data Vitals - Most Recent: Last Vital Signs Temp 98.2 F 05/13/18 04:20 Pulse 76 05/13/18 04:20 Resp 14 05/13/18 04:20 BP 124/67 05/13/18 04:20 Pulse Ox 95 05/13/18 04:20 Weight - Most Recent: 192 lb 4.8 oz I&O - Last 24 Hours: Intake & Output 05/12/18 05/13/18 05/13/18 22:59 06:59 14:59 Intake Total 1680 600 Output Total 850 1100 Balance 830 -500 Lab Results Last 24 Hours: Laboratory Results - last 24 hr 05/12/18 05/12/18 05/12/18 Range/Units 10:57 16:41 20:18 WBC (4.23-9.07) K/mm3 RBC (4.63-6.08) M/mm3 Hgb (13.7-17.5) gm/L Hct (40.1-51.0) % MCV (79.0-92.2) fl MCH (25.7-32.2) pg MCHC (32.2-35.5) g/dl RDW Std Deviation (35.1-43.9) fL Plt Count (163-337) K/mm3 MPV (9.4-12.3) fl Neut % (Auto) (34.0-67.9) % Lymph % (Auto) (21.8-53.1) % [place] % (Auto) (5.3-12.2) % Eos % (Auto) (0.8-7.0) Baso % (Auto) (0.1-1.2) % Neut # (Auto) (1.78-5.38) K/mm3 Lymph # (Auto) (1.32-3.57) K/mm3 [place] # (Auto) (0.30-0.82) K/mm3 Eos # (Auto) (0.04-0.54) K/mm3 Baso # (Auto) (0.01-0.08) K/mm3 Manual Slide Review Sodium (136-145) mEq/L Potassium (3.5-5.1) mEq/L Chloride (98-107) mEq/L Carbon Dioxide (21-32) mEq/L Anion Gap (5-15) BUN (7-18) mg/dL Creatinine (0.7-1.3) mg/dL Est Cr Clr Drug Dosing mL/min Estimated GFR (MDRD) (>60) mL/min BUN/Creatinine Ratio (14-18) Glucose (83-115) mg/dL POC Glucose 144 H 98 190 H (83-110) mg/dL Calcium (8.5-10.1) mg/dL Magnesium (1.8-2.4) mg/dl 05/13/18 05/13/18 05/13/18 Range/Units 06:05 06:20 06:20 WBC 7.59 (4.23-9.07) K/mm3 RBC 3.98 L (4.63-6.08) M/mm3 Hgb 11.5 L (13.7-17.5) gm/L Hct 35.5 L (40.1-51.0) % MCV 89.2 (79.0-92.2) fl MCH 28.9 (25.7-32.2) pg MCHC 32.4 (32.2-35.5) g/dl RDW Std Deviation 41.0 (35.1-43.9) fL Plt Count 238 (163-337) K/mm3 MPV 9.2 L (9.4-12.3) fl Neut % (Auto) 70.9 H (34.0-67.9) % Lymph % (Auto) 9.9 L (21.8-53.1) % [place] % (Auto) 15.0 H (5.3-12.2) % Eos % (Auto) 4.0 (0.8-7.0) Baso % (Auto) 0.1 (0.1-1.2) % Neut # (Auto) 5.38 (1.78-5.38) K/mm3 Lymph # (Auto) 0.75 L (1.32-3.57) K/mm3 [place] # (Auto) 1.14 H (0.30-0.82) K/mm3 Eos # (Auto) 0.30 (0.04-0.54) K/mm3 Baso # (Auto) 0.01 (0.01-0.08) K/mm3 Manual Slide Review Normal smear Sodium 140 (136-145) mEq/L Potassium 4.1 (3.5-5.1) mEq/L Chloride 104 (98-107) mEq/L Carbon Dioxide 25 (21-32) mEq/L Anion Gap 15.1 H (5-15) BUN 24 H (7-18) mg/dL Creatinine 1.4 H (0.7-1.3) mg/dL Est Cr Clr Drug Dosing 35.44 mL/min Estimated GFR (MDRD) 48 (>60) mL/min BUN/Creatinine Ratio 17.1 (14-18) Glucose 111 (83-115) mg/dL POC Glucose 114 H (83-110) mg/dL Calcium 9.1 (8.5-10.1) mg/dL Magnesium 2.0 (1.8-2.4) mg/dl Med Orders - Current: Current Medications Hydrocodone Bitart/Acetaminophen (Ramona 325-5 Mg) 1 - 2 tab PO Q6H PRN PRN Reason: pain Last Admin: 05/13/18 04:20 Dose: 2 tab Alogliptin Benzoate (Alogliptin) 25 mg PO DAILY [facility] Last Admin: 05/12/18 09:10 Dose: 25 mg Aspirin (Ecotrin) 325 mg PO BID [facility] Last Admin: 05/12/18 20:15 Dose: 325 mg Bisacodyl (Dulcolax) 5 mg PO DAILY PRN PRN Reason: Constipation Last Admin: 05/12/18 20:15 Dose: 5 mg Cyclobenzaprine HCl (Flexeril) 10 mg PO TID PRN PRN Reason: spasms Last Admin: 05/12/18 12:32 Dose: 10 mg Docusate Sodium (Colace) 100 mg PO BID [facility] Last Admin: 05/12/18 20:15 Dose: 100 mg Insulin Human Lispro (Humalog) 0 unit SUBCUT QIDACANDBED [facility]; Protocol Last Admin: 05/13/18 06:08 Dose: Not Given Magnesium Hydroxide (Milk Of Magnesia) 30 ml PO ONETIME ONE Stop: 05/13/18 09:01 Metoprolol Succinate (Toprol Xl) 25 mg PO DAILY [facility] Last Admin: 05/12/18 09:10 Dose: 25 mg Pantoprazole Sodium (Protonix) 40 mg PO DAILY [facility] Last Admin: 05/12/18 09:10 Dose: 40 mg Simvastatin (Zocor) 40 mg PO BEDTIME [facility] Last Admin: 05/12/18 20:15 Dose: 40 mg Tamsulosin HCl (Flomax) 0.4 mg PO DAILY [facility] Last Admin: 05/12/18 09:10 Dose: 0.4 mg Tapentadol (Nucynta) 50 mg PO Q8H PRN PRN Reason: Pain Last Admin: 05/11/18 16:46 Dose: 50 mg Discontinued Medications Hydrocodone Bitart/Acetaminophen (Ramona 325-5 Mg) 1 tab PO Q6H PRN PRN Reason: Pain Last Admin: 05/10/18 21:02 Dose: 1 tab Aspirin (Ecotrin) 325 mg PO ONETIME ONE Stop: 05/11/18 09:01 Last Admin: 05/11/18 08:30 Dose: 325 mg Bupivacaine HCl (Marcaine 0.25%) Confirm Administered Dose 30 ml .ROUTE .STK- MED ONE Stop: 05/10/18 13:16 Last Admin: 05/10/18 14:57 Dose: 20 ml Ephedrine Sulfate (Ephedrine In Ns) Confirm Administered Dose 25 mg .ROUTE .STK- MED ONE Stop: 05/10/18 14:29 Fentanyl (Sublimaze) Confirm Administered Dose 100 mcg .ROUTE .STK-MED ONE Stop: 05/10/18 13:30 Hydromorphone HCl (Dilaudid) 0.5 mg IVPUSH ONETIME ONE Stop: 05/10/18 12:24 Last Admin: 05/10/18 12:33 Dose: 0.5 mg Lactated Ringer's (Ringers, Lactated) 1,000 mls @ 125 mls/hr IV ASDIRECTED [facility] Stop: 05/10/18 23:00 Last Admin: 05/10/18 11:56 Dose: 125 mls/hr Lidocaine HCl (Xylocaine-Mpf 1%) Confirm Administered Dose 4 mls @ as directed .ROUTE .STK-MED ONE Stop: 05/10/18 13:30 Sodium Chloride (Normal Saline) 500 mls @ 999 mls/hr IV .BOLUS ONE Stop: 05/11/18 09:53 Last Admin: 05/11/18 09:55 Dose: 999 mls/hr Sodium Chloride (Normal Saline) 500 mls @ 100 mls/hr IV ONETIME [facility] Stop: 05/11/18 18:00 Last Admin: 05/11/18 15:08 Dose: 100 mls/hr Lidocaine/Sodium Bicarbonate (Buffered Lidocaine 1% In Ns 8.4%) 0.25 ml IDERM ONETIME PRN PRN Reason: Prior to IV Start Stop: 05/10/18 18:00 Lisinopril (Prinivil) 2.5 mg PO DAILY [facility] Last Admin: 05/11/18 08:58 Dose: 2.5 mg Lorazepam (Ativan) 1 mg IV ONETIME ONE Stop: 05/11/18 08:49 Last Admin: 05/11/18 09:00 Dose: 1 mg Metformin HCl (Glucophage) 500 mg PO BID [facility] Last Admin: 05/11/18 09:00 Dose: 500 mg Morphine Sulfate (Duramorph Pf) Confirm Administered Dose 10 mg .ROUTE .STK-MED ONE Stop: 05/10/18 13:32 Ondansetron HCl (Zofran) Confirm Administered Dose 4 mg .ROUTE .STK-MED ONE Stop: 05/10/18 13:29 Phenylephrine HCl (Phenylephrine In Ns 100 Mcg/Ml) Confirm Administered Dose 1 mg .ROUTE .STK-MED ONE Stop: 05/10/18 14:29 Propofol (Diprivan 20 Ml) Confirm Administered Dose 200 mg .ROUTE .STK-MED ONE Stop: 05/10/18 13:30 Sodium Chloride (Saline Flush) 10 ml FLUSH ASDIRECTED PRN PRN Reason: Keep Vein Open Stop: 05/10/18 18:00 - Exam Quality Assessment: Urine Catheter, DVT Prophylaxis. No: Supplemental Oxygen General: Alert, Oriented, Cooperative, No Acute Distress HEENT: Pupils Equal, Pupils Reactive, EOMI, Mucous Membr. Moist/[place] Neck: Supple, Trachea Midline Lungs: Clear to Auscultation, Normal Respiratory Effort Cardiovascular: Regular Rate, Regular Rhythm GI/Abdominal Exam: Normal Bowel Sounds, Soft, Non-Tender, No Distention, No Abnormal Bruit (Male) Exam: Deferred Back Exam: Normal Inspection, Full Range of Motion Extremities: No Pedal Edema, Normal Capillary Refill, Leg Pain, Limited Range of Motion, Other (Cast in place on left leg. ) Peripheral Pulses: 2+: Radial (L), Radial (R), Dorsalis Pedis (L), Dorsalis Pedis (R) Skin: Warm, Dry, Intact Neurological: No New Focal Deficit Psy/Mental Status: Alert, Normal Affect, Normal Mood Consult PN Assessment/Plan POD#: 3 Procedures: Procedures ASSAY OF LIPASE (05/21/15) ASSAY OF MAGNESIUM (05/21/15) ASSAY OF PHOSPHORUS (05/21/15) ASSAY OF TROPONIN QUANT (05/21/15) CARDIOVASCULAR STRESS TEST (10/16/17) COMPLETE CBC W/AUTO DIFF WBC (05/21/15) COMPREHEN METABOLIC PANEL (05/21/15) CT ABD & PELV W/CONTRAST (05/21/15) CT THORAX W/O DYE (05/30/15) CULTURE SCREEN ONLY (09/04/15) EMERGENCY DEPT VISIT (05/09/18) EMERGENCY DEPT VISIT (04/29/18) EMERGENCY DEPT VISIT (05/21/15) GLUCOSE BLOOD TEST (05/21/15) HT MUSCLE IMAGE SPECT MULT (10/16/17) HYDRATE IV INFUSION ADD-ON (05/21/15) INSERT TEMP BLADDER CATH (05/09/18) OFFICE/OUTPATIENT VISIT EST (09/04/15) OT EVALUATION (05/21/15) PT EVALUATION (05/21/15) ROUTINE VENIPUNCTURE (05/21/15) STREP A AG IA (09/04/15) THER/PROPH/DIAG INJ IV PUSH (05/21/15) TX/PRO/DX INJ NEW DRUG ADDON (05/21/15) URINALYSIS AUTO W/SCOPE (05/21/15) US URINE CAPACITY MEASURE (05/09/18) X-RAY EXAM OF ABDOMEN (05/21/15) X-RAY EXAM OF ANKLE (04/29/18) (1) Status post ORIF of fracture of ankle SNOMED Code(s): 893997834 Code(s): Z96.7 - PRESENCE OF OTHER BONE AND TENDON IMPLANTS; Z87.81 - PERSONAL HISTORY OF (HEALED) TRAUMATIC FRACTURE Priority: High Current Visit : Yes (2) History of bladder cancer SNOMED Code(s): 029407916, 072626703 Code(s): Z85.51 - PERSONAL HISTORY OF MALIGNANT NEOPLASM OF BLADDER Priority: Low Current Visit: No (3) Diabetes mellitus SNOMED Code(s): 05256861 Code(s): E11.9 - TYPE 2 DIABETES MELLITUS WITHOUT COMPLICATIONS Priority: Medium Current Visit: Yes Qualifiers: Diabetes mellitus type: type 2 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 insulin use: without chcf use Diabetes mellitus complication status: with unspecified complications Qualified Code(s): E11.8 - Type 2 diabetes mellitus with unspecified complications (4) HLD (hyperlipidemia) SNOMED Code(s): 54276016 Code(s): E78.5 - HYPERLIPIDEMIA, UNSPECIFIED Priority: Low Current Visit : No Qualifiers: Hyperlipidemia type: unspecified Qualified Code(s): E78.5 - Hyperlipidemia , unspecified (5) Osteoarthritis SNOMED Code(s): 250791916 Code(s): M19.90 - UNSPECIFIED OSTEOARTHRITIS, UNSPECIFIED SITE Priority: Low Current Visit: No Qualifiers: Osteoarthritis location: unspecified site Osteoarthritis type: unspecified Qualified Code(s): M19.90 - Unspecified osteoarthritis, unspecified site (6) Tobacco abuse SNOMED Code(s): 645903247 Code(s): Z72.0 - TOBACCO USE Priority: Low Current Visit: No (7) Urinary retention SNOMED Code(s): 418354942 Code(s): R33.9 - RETENTION OF URINE, UNSPECIFIED Priority: Low Current Visit: No Problem List Initiated/Reviewed/Updated: Yes My Orders Last 24 Hours: My Active Orders 05/14/18 05:11 BASIC METABOLIC PANEL,BMP [CHEM] AM CBC WITH AUTO DIFF [HEME] AM MAGNESIUM [CHEM] AM 05/15/18 05:11 BASIC METABOLIC PANEL,BMP [CHEM] AM CBC WITH AUTO DIFF [HEME] AM MAGNESIUM [CHEM] AM Plan: I/P: Acute: S/P left ankle ORIF- post-operative day 3 -DVT prophylaxis and pain management per primary care team -PT/OT -IS/RT -Monitor oxygen saturation -Titrate oxygen as needed -Vital signs stable -Monitor labs: -Pre-operative Hgb 14.8; Now 11.8-->11.4-->11.5 -Pre-operative GFR 50; Now 45-->48-->53-->48 -Pre-operative creatinine 1.36; Now 1.5-->1.4-->1.3-->1.4 -Pre-operative A1C 6.1% Generalized Weakness w/ h/o fall; improving -Uses FWW and wheelchair at home -Fell and fractured L ankle on April 29 -2 assist for transfers and ambulation per nursing -PT/OT recommend --> recommend SNF vs. [facility] -CM/SW for placement Urinary retention -Patient reported to ED on 05/09/18 with difficulty urinating -Carter placed and he is discharged on it with plan to follow-up with urology -On home flomax -Patient sees Dr. Cotton - they requested we leave carter in and have patient follow-up with them -Has appointment scheduled middle of next week for monthly check-up Chronic: CAD HTN -> Hold lisinopril HLD DM2 -> sliding scale and QID AC and bedtime glucose checks. Hold metformin Bladder CA h/o Urolithiasis h/o SBO OA Plan: CM for discharge planning Routine AM labs GI/DVT/PE prophylaxis Home medications as indicated Other orders as listed above Routine AM labs She is a full code. PCP is Dr. Neely. Overall from a hospitalist standpoint Noman is doing well. Labs and electrolytes have remained stable. He has been working with therapies and pain is controlled. He continues to have his carter which was placed in the ED. Contacted Dr. Cotton's office for guidance as the patient has monthly follow- ups with him. They would like us to leave the carter in place at discharge and he can follow-up at his scheduled appointment next week. He has been having good output. Pain has improved greatly and is controlled. He does have a cast in place on his left leg. Will resume home medications. Dr. Fernandez will prescribe pain/dvt control meds. He is off of oxygen. Vital signs remain stable. [facility] was in to evaluate him and has accepted him. He is cleared for discharge pending PT/OT and primary team agreement. Thank you for allowing us to participate in the care of this patient!
--- NOTE | 2018-05-13 08:33 | OR ---
DATE OF OPERATION: 05/10/2018 SURGEON: Cash Fernandez MD OPERATION PERFORMED: Open reduction and internal fixation of left lateral malleolus fracture with syndesmotic fixation. PREOPERATIVE DIAGNOSIS: Left ankle bimalleolar equivalent fracture with syndesmotic disruption. POSTOPERATIVE DIAGNOSIS: Left ankle bimalleolar equivalent fracture with syndesmotic disruption. ANESTHESIA: General LMA with local. ANESTHESIA PROVIDER: Morgan Buchanan CRNA. CROWN CERAMIST: Migdalia Machado PA-C. ESTIMATED BLOOD LOSS: Less than 10 mL. COMPLICATIONS: None. CONDITION: Stable. DESCRIPTION OF PROCEDURE: The patient was identified in the preoperative holding area. Proper site was marked, identified by surgeon. The patient was taken back to the operating theater where after adequate anesthesia, the patient's left lower extremity had a nonsterile tourniquet applied and was then sterilely prepped and draped in the usual sterile fashion. OR time-out was performed. The patient received 2 g of IV Ancef. Left lower extremity was exsanguinated. Tourniquet was insufflated to 250 mmHg. Standard lateral incision was made over the lateral malleolus. This was taken down to the fracture site. It was noted to be significantly comminuted. At this time, I was able to get a cortical read on the fibula for fibular length on the anterior portion. [id number] reduction clamp was then used for reduction of the fibular length and a Shelbie lateral malleolus distal fibular locking plate was then placed and found to be in adequate position with C-arm fluoroscopy. At this time, it was fixated both proximally and distally to the fracture site with cortical screws. Three locking screws were then placed distally in the lateral malleolus and then I was able to achieve 6 cortices proximal to the fracture site with cortical screws. Two syndesmotic screws that were then done after [id number] reduction clamp was used for reduction of the syndesmosis. These were tricortical in nature and 40 mm in length. One more locking screw was placed in the shaft near the fracture site. At this time, it was found to be adequately reduced on both AP lateral and mortise views with symmetric reduction of the mortise. Stress view was found to be negative. Adequate saline was then irrigated through the wound. 2-0 Vicryl was used subcutaneously. Barbed suture was used subcuticularly and palma used for the skin. The patient was placed in a sterile soft dressing and posterior slab splint and sent to the PACU in stable condition. MARI /[id number]
[2018-05-13] MEDS ORDERED: Magnesium Hydroxide 400 MG/5 ML Susp 30 ML Cup PO ONE (09:00)
[2018-05-13] MEDS: Metoprolol Succinate 25 MG Tab.ER PO SCH (09:05)
[2018-05-13] MEDS: Aspirin 325 MG Tab.EC PO SCH (09:05)
[2018-05-13] MEDS: Docusate Sodium 100 MG Cap PO SCH (09:06)
[2018-05-13] MEDS: Tamsulosin 0.4 MG Cap.ER PO SCH (09:06)
[2018-05-13] MEDS: Pantoprazole 40 MG Tab.CR PO SCH (09:06)
[2018-05-13] MEDS: Cyclobenzaprine 10 MG Tab PO PRN (09:06)
[2018-05-13 12:00] VITALS: BP 117/61
== END 2018-05-13 13:08 | disposition other institution (70) | DRG 494 ==
LOC: JD.SDS 10:46 → JD.MS 16:30 → JD.SDS 05-11 08:59 → JD.MS 05-11 09:00
PROVIDERS: ADMIT Orthopaedic Surgery; ATTEND Orthopaedic Surgery
PROC: 0QSK04Z Reposition Left Fibula with Internal Fixation Device, Open Approach (ICD-10-PCS; principal; 2018-05-10)
DX: S82.842A Displaced bimalleolar fracture of left lower leg, initial encounter for closed fracture (principal); W19.XXXA Unspecified fall, initial encounter; M17.0 Bilateral primary osteoarthritis of knee; E11.9 Type 2 diabetes mellitus without complications; I10 Essential (primary) hypertension; E78.00 Pure hypercholesterolemia, unspecified; K21.9 Gastro-esophageal reflux disease without esophagitis; N40.0 Benign prostatic hyperplasia without lower urinary tract symptoms; I25.10 Atherosclerotic heart disease of native coronary artery without angina pectoris; E78.5 Hyperlipidemia, unspecified; R53.1 Weakness; N40.1 Benign prostatic hyperplasia with lower urinary tract symptoms; R33.8 Other retention of urine; Z87.442 Personal history of urinary calculi; Z88.5 Allergy status to narcotic agent; Z85.828 Personal history of other malignant neoplasm of skin; Z87.891 Personal history of nicotine dependence; Z79.84 Long term (current) use of oral hypoglycemic drugs; Z79.82 Long term (current) use of aspirin; Z79.899 Other long term (current) drug therapy; Z85.51 Personal history of malignant neoplasm of bladder; Z90.49 Acquired absence of other specified parts of digestive tract
CPT/HCPCS: 27814; 36415 ×2; 76000; 80048; 80053; 82962 ×3; 87641; 93005; 94760; A9270 ×9; C1713 ×5; C1776; J1170; J2001; J2270; J2370; J2405; J2704; J3010; J3490; J7050; J7120; 01480; 81001; 82044; 83735; 85025; 94762; 97110-GO; 97110-GP; 97116-GP; 97161-GP; 97166-GO; 97530-GO; 97530-GP; J2060; J7040

== ENCOUNTER 2019-06-15 07:33 | Inpatient (IN) | payer MEDICARE, BC ==
[~2019-06-15 07:33] MED LIST changes: +Bisacodyl 5 MG Tab PO PRN; +Morphine 2 MG/ML SYRINGE IVPUSH PRN; +Naloxone 0.4 MG/ML SDV IVPUSH PRN; +Ondansetron 4 MG/2 ML SDV IVPUSH PRN; +Sennosides 8.6 MG Tab PO PRN
--- NOTE | 2019-06-15 08:04 | PCM.CONS ---
H&P History of Present Illness - General Date of Service: 06/15/19 Admit Problem/Dx: Admission Diagnosis/Problem Admission Diagnosis/Problem Osteoarthritis of knee Source of Information: Patient, Old Records, Provider, RN, RN Notes Reviewed History Limitations: Reports: No Limitations - History of Present Illness Initial Comments - Free Text/Narative: Noman Willett is a 84 yo male patient of Dr. Fernandez who is post-operative day 0 of right TKA. Hospital medicine was consulted for post-operative medical care of the following listed medical conditions. At this time he is resting comfortably in bed. Pain is controlled. He denies any chest pain, shortness of breath, palpitations, nausea, or vomiting. He carries a history of: HTN, Hyperuricemia, LBP, Bladder cancer, Hypothermia, Insomnia, Type II DM, CAD, CKD III, Retinal detachment, HLD, BPH, Renal Calculus, Osteoarthritis, Squamous cell carcinoma, Chronic constipation. He is a former smoker. He is a full code. His primary care provider is Florinda. Right knee Pain Score (Numeric/FACES): 6 - Related Data Allergies/Adverse Reactions: Allergies Allergy/AdvReac Type Severity Reaction Status Date / Time codeine Allergy Rash Verified 06/15/19 09:32 Home Medications: Home Meds Omeprazole 20 mg PO DAILY 05/21/15 [History] Simvastatin [Zocor] 40 mg PO DAILY 05/21/15 [History] Tamsulosin [Flomax] 0.4 mg PO DAILY 04/29/18 [History] Allopurinol [Zyloprim] 100 mg PO DAILY 06/14/19 [History] Alogliptin Benzoate [Alogliptin] 12.5 mg PO DAILY 06/14/19 [History] Cholecalciferol (Vitamin D3) [Vitamin D3] 5,000 unit PO DAILY 06/14/19 [History] Lisinopril [Zestril] 5 mg PO DAILY 06/14/19 [History] metFORMIN [Glucophage] 850 mg PO DAILY 06/14/19 [History] Aspirin 81 mg PO DAILY 06/15/19 [History] Metoprolol Succinate [Toprol XL 50mg] 25 mg PO DAILY 06/15/19 [History] Past Medical History HEENT History: Reports: Cataract, Retinal Detachment Other HEENT History: pharyngitis, detached retina Cardiovascular History: Reports: CAD, High Cholesterol, Hypertension Respiratory History: Reports: SOB Gastrointestinal History: Reports: Bowel Obstruction, GERD Other Gastrointestinal History: 2014 - chronic constipation due to narcotics Genitourinary History: Reports: BPH, Renal Calculus, Other (See Below) Other Genitourinary History: hyperurcemia 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 Musculoskeletal History: Reports: Back Pain, Chronic, Fracture, Osteoarthritis Other Musculoskeletal History: left fibula fracture Neurological History: Reports: None Psychiatric History: Reports: None Endocrine/Metabolic History: Reports: Diabetes, Type II, Obesity/BMI 30+ Hematologic History: Reports: None Immunologic History: Reports: None Oncologic (Cancer) History: 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, Squamous Cell Carcinoma Other Dermatologic History: atopic dermatitis - Infectious Disease History Infectious Disease History: Reports: Other (See Below) Other Infectious Disease History: Staph, non MRSA - Past Surgical History Head Surgeries/Procedures: Reports: None HEENT Surgical History: Reports: Cataract Surgery, Detached Retina, Oral Surgery Cardiovascular Surgical History: Reports: None Respiratory Surgical History: Reports: None GI Surgical History: Reports: Appendectomy, Cholecystectomy, Colonoscopy, EGD, Other (See Below) Female Surgical History: Reports: None Male Surgical History: Reports: Circumcision, Other (See Below) Endocrine Surgical History: Reports: None Neurological Surgical History: Reports: Discectomy, Lumbar Spine Musculoskeletal Surgical History: Reports: Shoulder Surgery, Other (See Below) Other Musculoskeletal Surgeries/Procedures:: neck surgery, left ankle surgery with hardware Oncologic Surgical History: Reports: Other (See Below) Dermatological Surgical History: Reports: Other (See Below) Social & Family History - Family History Family Medical History: Noncontributory Cardiac: Reports: Heart Failure Endocrine/Metabolic: Reports: Diabetes, type II Oncologic: Reports: Colon - Tobacco Use Smoking Status *Q: Former Smoker Used Tobacco, but Quit: Yes Month/Year Tobacco Last Used: 1979 Second Hand Smoke Exposure: No - Caffeine Use Caffeine Use: Reports: Coffee - Recreational Drug Use Recreational Drug Use: No - Living Situation & Occupation Living situation: Reports: , with Spouse Occupation: Retired H&P Review of Systems - Review of Systems: Review Of Systems: See Below General: Reports: No Symptoms. Denies: Fever, Chills HEENT: Reports: No Symptoms. Denies: Headaches, Sore Throat Pulmonary: Reports: No Symptoms. Denies: Shortness of Breath, Wheezing, Pleuritic Chest Pain, Cough, Sputum Cardiovascular: Reports: No Symptoms. Denies: Chest Pain, Palpitations, Edema Gastrointestinal: Reports: No Symptoms. Denies: Abdominal Pain, Constipation, Diarrhea, Nausea, Vomiting Genitourinary: Reports: No Symptoms. Denies: Pain Musculoskeletal: Reports: Leg Pain Skin: Reports: No Symptoms. Denies: Cyanosis Psychiatric: Reports: No Symptoms. Denies: Confusion Neurological: Reports: No Symptoms, Difficulty Walking, Gait Disturbance. Denies: Pre-Existing Deficit Hematologic/Lymphatic: Reports: No Symptoms Immunologic: Reports: No Symptoms Exam - Exam Exam: See Below - Exam Quality Assessment: Supplemental Oxygen, DVT Prophylaxis General: Alert, Oriented, Cooperative. No: Mild Distress HEENT: Conjunctiva Clear, EACs Clear. No: Mucosa Moist & Toast, Posterior Pharynx Clear Neck: Supple, Trachea Midline Lungs: Clear to Auscultation, Normal Respiratory Effort Cardiovascular: Regular Rate, Regular Rhythm GI/Abdominal Exam: Normal Bowel Sounds, Soft, Non-Tender, No Distention (Male) Exam: Deferred Rectal (Males) Exam: Deferred Extremities: Normal Capillary Refill, Leg Pain, Limited Range of Motion, Other ( Bandage in place on right knee. Bandage is dry and intact. Cooling pack in place. ) Peripheral Pulses: 2+: Radial (L), Radial (R), Dorsalis Pedis (L), Dorsalis Pedis (R) Skin: Warm, Dry, Intact Neurological: Cranial Nerves Intact (Grossly ) Neuro Extensive - Mental Status: Alert, Oriented x3, Normal Mood/Affect Consult PN Assessment/Plan POD#: 0 Procedures: Procedures ASSAY OF BLOOD/URIC ACID (05/27/19) ASSAY OF LACTIC ACID (03/29/19) ASSAY OF LIPASE (05/21/15) ASSAY OF MAGNESIUM (05/21/15) ASSAY OF PHOSPHORUS (05/21/15) ASSAY OF TROPONIN QUANT (05/21/15) ASSAY THYROID STIM HORMONE (05/27/19) C-REACTIVE PROTEIN (05/27/19) CARDIOVASCULAR STRESS TEST (10/16/17) COMPLETE CBC W/AUTO DIFF WBC (05/27/19) COMPREHEN METABOLIC PANEL (05/27/19) CT ABD & PELV W/CONTRAST (05/21/15) CT THORAX W/O DYE (05/30/15) CULTURE SCREEN ONLY (09/04/15) ELECTROCARDIOGRAM REPORT (05/26/19) ELECTROCARDIOGRAM TRACING (05/26/19) EMERGENCY DEPT VISIT (05/09/18) EMERGENCY DEPT VISIT (04/29/18) EMERGENCY DEPT VISIT (05/21/15) EXTRACRANIAL BILAT STUDY (06/02/19) FLUOROSCOPY <1 HR PHYS/QHP (05/11/18) GAIT TRAINING THERAPY (05/11/18) GLUCOSE BLOOD TEST (05/11/18) GLYCOSYLATED HEMOGLOBIN TEST (05/27/19) HT MUSCLE IMAGE SPECT MULT (10/16/17) HYDRATE IV INFUSION ADD-ON (05/21/15) INSERT TEMP BLADDER CATH (05/09/18) LIPID PANEL (05/27/19) MEASURE BLOOD OXYGEN LEVEL (05/11/18) MEASURE BLOOD OXYGEN LEVEL (05/11/18) METABOLIC PANEL TOTAL CA (05/11/18) MR-STAPH DNA AMP PROBE (05/11/18) OFFICE/OUTPATIENT VISIT EST (05/26/19) OFFICE/OUTPATIENT VISIT EST (09/04/15) OT EVAL MOD COMPLEX 45 MIN (05/11/18) OT EVALUATION (05/21/15) PROTHROMBIN TIME (05/27/19) PT EVAL LOW COMPLEX 20 MIN (05/11/18) PT EVALUATION (05/21/15) ROUTINE VENIPUNCTURE (05/27/19) STREP A AG IA (09/04/15) THER/PROPH/DIAG INJ IV PUSH (05/21/15) THERAPEUTIC ACTIVITIES (05/11/18) THERAPEUTIC EXERCISES (05/11/18) TISSUE EXAM FOR FUNGI (04/04/19) TREATMENT OF ANKLE FRACTURE (05/11/18) TTE W/DOPPLER COMPLETE (06/02/19) TX/PRO/DX INJ NEW DRUG ADDON (05/21/15) URINALYSIS AUTO W/O SCOPE (03/29/19) URINALYSIS AUTO W/SCOPE (05/27/19) US EXAM ABDO BACK WALL COMP (04/07/19) US URINE CAPACITY MEASURE (05/09/18) VITAMIN B-12 (05/27/19) X-RAY EXAM CHEST 2 VIEWS (05/26/19) X-RAY EXAM HIP UNI 2-3 VIEWS (04/04/19) X-RAY EXAM L-2 SPINE 4/>VWS (10/04/18) X-RAY EXAM OF ABDOMEN (05/21/15) X-RAY EXAM OF ANKLE (04/29/18) (1) S/P total knee arthroplasty SNOMED Code(s): 4438688014827, 833174460, 9443721481648 Code(s): Z96.659 - PRESENCE OF UNSPECIFIED ARTIFICIAL KNEE JOINT Priority: High Current Visit: Yes Qualifiers: Laterality: right Qualified Code(s): Z96.651 - Presence of right artificial knee joint (2) History of retinal detachment SNOMED Code(s): 923400897 Code(s): Z86.69 - PERSONAL HISTORY OF DIS OF THE NERVOUS SYS AND SENSE ORGANS Priority: Low Current Visit: No (3) CAD (coronary artery disease) SNOMED Code(s): 39861331 Code(s): I25.10 - ATHSCL HEART DISEASE OF [place] CORONARY ARTERY W/O ANG PCTRS Priority: Low Current Visit: No Qualifiers: Coronary Disease-Associated Artery/Lesion type: unspecified vessel or lesion type Three Affiliated vs. transplanted heart: unspecified whether telida or transplanted heart Associated angina: without angina Qualified Code(s): I25.10 - Atherosclerotic heart disease of [place] coronary artery without angina pectoris (4) HTN (hypertension) SNOMED Code(s): 94831133 Code(s): I10 - ESSENTIAL (PRIMARY) HYPERTENSION Priority: Low Current Visit: No Qualifiers: Hypertension type: unspecified Qualified Code(s): I10 - Essential (primary ) hypertension (5) History of small bowel obstruction SNOMED Code(s): 673654914198270 Code(s): Z87.19 - PERSONAL HISTORY OF OTHER DISEASES OF THE DIGESTIVE SYSTEM Priority: Low Current Visit: No (6) GERD (gastroesophageal reflux disease) SNOMED Code(s): 110827982 Code(s): K21.9 - GASTRO-ESOPHAGEAL REFLUX DISEASE WITHOUT ESOPHAGITIS Priority: Low Current Visit: No Qualifiers: Esophagitis presence: esophagitis presence not specified Qualified Code(s) : K21.9 - Gastro-esophageal reflux disease without esophagitis (7) Chronic constipation SNOMED Code(s): 033995344 Code(s): K59.09 - OTHER CONSTIPATION Priority: Low Current Visit: No (8) BPH (benign prostatic hyperplasia) SNOMED Code(s): 444414473 Code(s): N40.0 - BENIGN PROSTATIC HYPERPLASIA WITHOUT LOWER URINRY TRACT SYMP Priority: Low Current Visit: No Qualifiers: Lower urinary tract symptom presence: unspecified whether lower urinary tract symptoms present Qualified Code(s): N40.0 - Benign prostatic hyperplasia without lower urinary tract symptoms (9) Renal calculi SNOMED Code(s): 97387611 Code(s): N20.0 - CALCULUS OF KIDNEY Priority: Low Current Visit: No (10) Hyperuricuria SNOMED Code(s): 38687444 Code(s): R82.998 - OTHER ABNORMAL FINDINGS IN URINE Priority: Low Current Visit: No (11) Chronic back pain SNOMED Code(s): 648880831 Code(s): M54.9 - DORSALGIA, UNSPECIFIED; G89.29 - OTHER CHRONIC PAIN Priority: Low Current Visit: No Qualifiers: Back pain location: back pain in unspecified location Back pain laterality : unspecified Qualified Code(s): M54.9 - Dorsalgia, unspecified; G89.29 - Other chronic pain (12) History of tobacco use SNOMED Code(s): 845067497 Code(s): Z87.891 - PERSONAL HISTORY OF NICOTINE DEPENDENCE Priority: Low Current Visit: No (13) Diabetes mellitus SNOMED Code(s): 22814716 Code(s): E11.9 - TYPE 2 DIABETES MELLITUS WITHOUT COMPLICATIONS Priority: Medium Current Visit: No Qualifiers: Diabetes mellitus type: type 2 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 Diabetes mellitus complication status: with other specified complication Qualified Code(s): E11.69 - Type 2 diabetes mellitus with other specified complication (14) HLD (hyperlipidemia) SNOMED Code(s): 40138454 Code(s): E78.5 - HYPERLIPIDEMIA, UNSPECIFIED Priority: Low Current Visit : No Qualifiers: Hyperlipidemia type: unspecified Qualified Code(s): E78.5 - Hyperlipidemia , unspecified (15) History of bladder cancer SNOMED Code(s): 932408127, 391723454 Code(s): Z85.51 - PERSONAL HISTORY OF MALIGNANT NEOPLASM OF BLADDER Priority: Low Current Visit: No (16) Osteoarthritis SNOMED Code(s): 952792782 Code(s): M19.90 - UNSPECIFIED OSTEOARTHRITIS, UNSPECIFIED SITE Priority: Low Current Visit: No Qualifiers: Osteoarthritis location: knee Osteoarthritis type: primary Laterality: bilateral Qualified Code(s): M17.0 - Bilateral primary osteoarthritis of knee Problem List Initiated/Reviewed/Updated: Yes Plan: I/P: Acute: S/P right total knee arthroplasty - post-operative day 0 -DVT prophylaxis and pain management per primary care team -PT/OT -IS/RT -Monitor oxygen saturation -Titrate oxygen as needed -Home medications reviewed -Vital signs stable -Monitor labs -Pre-operative Hgb was 12.5 -Pre-operative GFR was 48 -Pre-operative creatinine 1.4 -Pre-operative BUN 21 -Pre-operative A1C 6.4% -Pre-operative 12-lead EKG shows sinus rhythm with incomplete RBBB Osteoarthritis of bilateral knee -Pain management per primary care team S/P Left knee cortisone injection -Management by primary team Chronic: HTN Hyperuricemia LBP Bladder cancer Hypothermia Insomnia Type II DM CAD CKD III Retinal detachment HLD BPH Renal Calculus Osteoarthritis Squamous cell carcinoma Chronic constipation Plan: CM for discharge planning GI prophylaxis Home medications as indicated Other orders as listed above Routine AM labs He is a full code. His PCP is Dr. Neely Thank you for allowing us to participate in the care of this patient!! Requesting Provider: Dr. Fernandez Date Consult Requested: 06/15/19 Patient History Reviewed: Yes Admission H&P Reviewed: Yes Notified Requestor: Yes
--- NOTE | 2019-06-15 08:31 | PCM.PREANE ---
Preanesthetic Assessment - Procedure Proposed Procedure: Right total knee arthroplasty - Anesthesia/Transfusion/Family Hx Anesthesia History: Prior Anesthesia Without Reaction Family History of Anesthesia Reaction: No Transfusion History: No Prior Transfusion(s) - Review of Systems General: No Symptoms Pulmonary: No Symptoms Cardiovascular: Dyspnea on Exertion Gastrointestinal: No Symptoms Neurological: No Symptoms Other: Reports: Easy Bruising, Diabetes (105 this AM) - Physical Assessment NPO Status Date: 06/14/19 NPO Status Time: 00:00 Height: 1.68 m Weight: 83.6 kg ASA Class: 2 Mental Status: Alert & Oriented x3 Airway Class: Mallampati = 2 Dentition: Reports: [place](s) Thyro-Mental Finger Breadths: 3 Mouth Opening Finger Breadths: 3 ROM/Head Extension: Limited/Partial Lungs: Clear to Auscultation, Normal Respiratory Effort Cardiovascular: Regular Rate, Regular Rhythm - Lab Values: Laboratory Last Values POC Glucose 105 mg/dL (83-110) 06/15/19 08:13 MRSA (PCR) Negative 06/03/19 11:51 - Imaging/EKG Impressions: 05/19 SR With RBBB - Allergies Allergies/Adverse Reactions: Allergies Allergy/AdvReac Type Severity Reaction Status Date / Time codeine Allergy Rash Verified 06/14/19 12:38 - Anesthesia Plan Pre-Op Medication Ordered: Beta Erendira Beta Erendira: Metoprolol Med Last Dose Date: 06/15/19 Med Last Dose Time: 07:00 - Acknowledgements Anesthesia Type Planned: Spinal Pt an Appropriate Candidate for the Planned Anesthesia: Yes Alternatives and Risks of Anesthesia Discussed w Pt/Guardian: Yes Pt/Guardian Understands and Agrees with Anesthesia Plan: Yes PreAnesthesia Questionnaire HEENT History: Reports: Cataract, Retinal Detachment Other HEENT History: pharyngitis, detached retina Cardiovascular History: Reports: CAD, High Cholesterol, Hypertension Respiratory History: Reports: SOB Gastrointestinal History: Reports: Bowel Obstruction, GERD Other Gastrointestinal History: 2013 - chronic constipation due to narcotics Genitourinary History: Reports: BPH, Renal Calculus, Other (See Below) Other Genitourinary History: hyperurcemia 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 Musculoskeletal History: Reports: Back Pain, Chronic, Fracture, Osteoarthritis Other Musculoskeletal History: left fibula fracture Neurological History: Reports: None Psychiatric History: Reports: None Endocrine/Metabolic History: Reports: Diabetes, Type II, Obesity/BMI 30+ Hematologic History: Reports: None Immunologic History: Reports: None Oncologic (Cancer) History: 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, Squamous Cell Carcinoma Other Dermatologic History: atopic dermatitis - Infectious Disease History Infectious Disease History: Reports: Other (See Below) Other Infectious Disease History: Staph, non MRSA - Past Surgical History Head Surgeries/Procedures: Reports: None HEENT Surgical History: Reports: Cataract Surgery, Detached Retina, Oral Surgery Cardiovascular Surgical History: Reports: None Respiratory Surgical History: Reports: None GI Surgical History: Reports: Appendectomy, Cholecystectomy, Colonoscopy, EGD, Other (See Below) Female Surgical History: Reports: None Male Surgical History: Reports: Circumcision, Other (See Below) Endocrine Surgical History: Reports: None Neurological Surgical History: Reports: Discectomy, Lumbar Spine Musculoskeletal Surgical History: Reports: Shoulder Surgery, Other (See Below) Other Musculoskeletal Surgeries/Procedures:: neck surgery, left ankle surgery with hardware Oncologic Surgical History: Reports: Other (See Below) Dermatological Surgical History: Reports: Other (See Below) - SUBSTANCE USE Smoking Status *Q: Former Smoker Tobacco Use Within Last Twelve Months: No Second Hand Smoke Exposure: No Days Per Week of Alcohol Use: 0 Number of Drinks Per Day: 0 Total Drinks Per Week: 0 Recreational Drug Use History: No - HOME MEDS Home Medications: Home Meds Omeprazole 20 mg PO DAILY 05/21/15 [History] Simvastatin [Zocor] 40 mg PO DAILY 05/21/15 [History] Tamsulosin [Flomax] 0.4 mg PO DAILY 04/29/18 [History] Allopurinol [Zyloprim] 100 mg PO DAILY 06/14/19 [History] Alogliptin Benzoate [Alogliptin] 12.5 mg PO DAILY 06/14/19 [History] Cholecalciferol (Vitamin D3) [Vitamin D3] 5,000 unit PO DAILY 06/14/19 [History] Cyclobenzaprine [Flexeril] 10 mg PO BID PRN 06/14/19 [History] Lisinopril [Zestril] 5 mg PO DAILY 06/14/19 [History] metFORMIN [Glucophage] 850 mg PO DAILY 06/14/19 [History] - CURRENT (IN HOUSE) MEDS Current Meds: Current Medications Aspirin (Ecotrin) 325 mg PO BID LARRY Bisacodyl (Dulcolax) 5 mg PO DAILY PRN PRN Reason: Constipation Morphine Sulfate 8 mg/Epinephrine HCl 0.3 mg/Cefuroxime Sodium 750 mg/Ketorolac Tromethamine 30 mg/Sodium Chloride 7.9 ml 0 mg .XX ONETIME ONE Stop: 06/15/19 10:31 Docusate Sodium (Colace) 100 mg PO BID [facility] Famotidine (Pepcid) 20 mg PO Q12H [facility] Lactated Ringer's (Ringers, Lactated) 1,000 mls @ 125 mls/hr IV ASDIRECTED [facility] Stop: 06/15/19 23:00 Cefazolin Sodium/Dextrose 2 gm (/ Premix) 50 mls @ 100 mls/hr IV Q8H [facility] Stop: 06/15/19 23:29 Lidocaine/Sodium Bicarbonate (Buffered Lidocaine 1% In Ns 8.4%) 0.25 ml IDERM ONETIME PRN PRN Reason: Prior to IV Start Stop: 06/15/19 18:00 Morphine Sulfate (Morphine) 2 mg IVPUSH Q2H PRN PRN Reason: Breakthrough Pain Naloxone HCl (Narcan) 0.1 mg IVPUSH Q5M PRN PRN Reason: Oversedation Ondansetron HCl (Zofran) 4 mg IVPUSH Q6H PRN PRN Reason: Nausea/Vomiting Oxycodone/Acetaminophen (Percocet 325-5 Mg) 1 - 2 tab PO Q4H PRN PRN Reason: Pain Senna (Senna) 8.6 mg PO BID PRN PRN Reason: Constipation Sodium Chloride (Saline Flush) 10 ml FLUSH ASDIRECTED PRN PRN Reason: Keep Vein Open Stop: 06/15/19 18:00
[2019-06-15] MEDS ORDERED: Vancomycin 1 GM SDV ONE (08:35)
[2019-06-15] MEDS ORDERED: ceFAZolin 1 GM Vial ONE ×2 (08:35→09:01)
[2019-06-15] MEDS ORDERED: Iodine/Sodium Iodide 2% Tincture 30 ML Bottle ONE (08:36)
[2019-06-15] MEDS ORDERED: Bupivacaine 0.25% 10 ML SDV ONE (08:36)
[2019-06-15] MEDS ORDERED: Propofol 200 MG/20 ML SDV ONE ×3 (09:00→11:10)
[2019-06-15] MEDS ORDERED: Ondansetron 4 MG/2 ML SDV ONE (09:00)
[2019-06-15] MEDS ORDERED: fentaNYL 100 MCG/2 ML SDV ONE (09:01)
[2019-06-15] MEDS ORDERED: Lidocaine 1% 4 ML ONE (09:01)
[2019-06-15] MEDS ORDERED: Lactated Ringers 1,000 ML ONE (09:10)
[2019-06-15] MEDS ORDERED: ePHEDrine Sulfate/0.9% NaCl/Pf 25 MG/5 ML SYRINGE IV ONE (10:27)
[2019-06-15] MEDS: Morphine 8 MG, EPINEPHrine 0.3 MG, Cefuroxime 750 MG, Ketorolac 30 MG, Sodium Chloride ... ONE ×10 (10:59→21:03)
[2019-06-15] MEDS ORDERED: Ropivacaine 0.5% 5 MG/ML 30 ML SDV ONE (11:19)
[2019-06-15] MEDS ORDERED: EPINEPHrine 1 MG/ML SDV ONE (11:19)
--- NOTE | 2019-06-15 11:41 | PCM.POSTAN ---
POST ANESTHESIA ASSESSMENT - MENTAL STATUS Mental Status: Alert, Oriented - VITAL SIGNS Vital Signs: Last Vital Signs Temp 36.2 C 06/15/19 07:50 Pulse 57 L 06/15/19 07:50 Resp 20 06/15/19 07:50 BP 146/67 H 06/15/19 07:50 Pulse Ox 93 L 06/15/19 07:50 - RESPIRATORY Respiratory Status: Respiratory Rate WNL, Airway Patent, O2 Saturation Stable, Supplemental Oxygen - CARDIOVASCULAR CV Status: Pulse Rate WNL, Blood Pressure Stable - GASTROINTESTINAL GI Status: No Symptoms - PAIN Pain Score: 0 - POST OP HYDRATION Hydration Status: Adequate & Stable - OBSERVATIONS Free Text/Narrative:: no anesthesia complications noted
--- NOTE | 2019-06-15 12:32 | CR ---
Right knee: AP and lateral views of the right knee were obtained. Comparison: No prior right knee exam. Knee prosthesis is seen. Components are aligned. Underlying bony structures are intact. Soft tissue air is noted from the surgical procedure. Impression: 1. Satisfactory postop radiographic appearance a recently placed right knee prosthesis. Diagnostic code #2 Study was dictated in MDT
--- NOTE | 2019-06-15 13:02 | PCM.SN ---
- Free Text/Narrative Note: Right selective femoral nerve block at the adductor canal for post-procedure pain control under US guidance requested by Dr. Fernandez. Time Out: 1154 Start: 1154 End: 1202 Chart reviewed. Consent signed. Questions answered. Appropriate monitors applied. Time out performed. Right mid-shaft femur identified with ultrasound, scanning medially of femur, the femoral artery in the adductor canal visualized , and the femoral nerve located laterally to the artery. The skin was prepped lateral to the ultrasound probe with chlorahexadine times two. The 21ga 4 insulated block needle was inserted under direct ultrasound guidance into the adductor canal. 25mL of 0.5% ropivacaine with 1:200,000 epinephrine was injected circumferentially around the nerve with intermittent negative aspiration noted. Patient tolerated the procedure well. Sterile technique noted along with sterile gloves, mask, and sterile probe cover. See picture on progress note and vital signs on nurses notes. Block completed in PACU. Morgan Buchanan CRNA
[2019-06-15] MEDS: ceFAZolin 2 GM in Premix Bag 1 BAG IV SCH ×2 (16:04→23:59)
[2019-06-15] MEDS: Acetaminophen/oxyCODONE 325-5 MG Tab PO PRN ×2 (16:06→23:52)
[2019-06-15] MEDS ORDERED: Simvastatin 40 MG Tab PO SCH (21:00)
[2019-06-15] MEDS ORDERED: Famotidine 20 MG Tab PO SCH (21:00)
[2019-06-15] MEDS: Docusate Sodium 100 MG Cap PO SCH (21:03)
[2019-06-16] MEDS: Acetaminophen/oxyCODONE 325-5 MG Tab PO PRN ×2 (06:59→11:21)
[2019-06-16] MEDS ORDERED: Pantoprazole 40 MG Tab.CR PO SCH (07:00)
--- NOTE | 2019-06-16 07:15 | PCM.SURGPN ---
- General Info Date of Service: 06/16/19 POD#: 1 Functional Status: Reports: Pain Controlled, Tolerating Diet, Ambulating, Urinating, Incentive Spirometry, Other (Nursing states pt is doing very well.) - Patient Data Vitals - Most Recent: Last Vital Signs Temp 97.9 F 06/16/19 04:12 Pulse 64 06/16/19 04:12 Resp 16 06/16/19 04:12 BP 105/52 L 06/16/19 04:12 Pulse Ox 92 L 06/16/19 04:12 Weight - Most Recent: 193 lb 4.8 oz I&O - Last 24 Hours: Intake & Output 06/15/19 06/16/19 06/16/19 22:59 06:59 14:59 Intake Total 1340 850 Output Total 900 Balance 1340 -50 Lab Results Last 24 Hrs: Laboratory Results - last 24 hr 06/15/19 06/15/19 06/15/19 Range/Units 08:13 17:14 21:15 WBC (4.23-9.07) K/mm3 RBC (4.63-6.08) M/mm3 Hgb (13.7-17.5) gm/dl Hct (40.1-51.0) % MCV (79.0-92.2) fl MCH (25.7-32.2) pg MCHC (32.2-35.5) g/dl RDW Std Deviation (35.1-43.9) fL Plt Count (163-337) K/mm3 MPV (9.4-12.3) fl Sodium (136-145) mEq/L Potassium (3.5-5.1) mEq/L Chloride (98-107) mEq/L Carbon Dioxide (21-32) mEq/L Anion Gap (5-15) BUN (7-18) mg/dL Creatinine (0.7-1.3) mg/dL Est Cr Clr Drug Dosing mL/min Estimated GFR (MDRD) (>60) mL/min BUN/Creatinine Ratio (14-18) Glucose (83-115) mg/dL POC Glucose 105 78 L 84 (83-110) mg/dL Calcium (8.5-10.1) mg/dL Total Bilirubin (0.2-1.0) mg/dL AST (15-37) U/L ALT (16-63) U/L Alkaline Phosphatase (46-116) U/L Total Protein (6.4-8.2) g/dl Albumin (3.4-5.0) g/dl Globulin gm/dL Albumin/Globulin Ratio (1-2) 06/16/19 06/16/19 06/16/19 Range/Units 05:35 05:35 05:48 WBC 7.16 (4.23-9.07) K/mm3 RBC 3.96 L (4.63-6.08) M/mm3 Hgb 11.1 L (13.7-17.5) gm/dl Hct 36.4 L (40.1-51.0) % MCV 91.9 (79.0-92.2) fl MCH 28.0 (25.7-32.2) pg MCHC 30.5 L (32.2-35.5) g/dl RDW Std Deviation 44.9 H (35.1-43.9) fL Plt Count 182 (163-337) K/mm3 MPV 9.7 (9.4-12.3) fl Sodium 140 (136-145) mEq/L Potassium 4.7 (3.5-5.1) mEq/L Chloride 107 (98-107) mEq/L Carbon Dioxide 24 (21-32) mEq/L Anion Gap 13.7 (5-15) BUN 23 H (7-18) mg/dL Creatinine 1.4 H (0.7-1.3) mg/dL Est Cr Clr Drug Dosing 34.81 mL/min Estimated GFR (MDRD) 48 (>60) mL/min BUN/Creatinine Ratio 16.4 (14-18) Glucose 107 (83-115) mg/dL POC Glucose 91 (83-110) mg/dL Calcium 8.7 (8.5-10.1) mg/dL Total Bilirubin 0.4 (0.2-1.0) mg/dL AST 21 (15-37) U/L ALT 25 (16-63) U/L Alkaline Phosphatase 63 (46-116) U/L Total Protein 5.9 L (6.4-8.2) g/dl Albumin 3.1 L (3.4-5.0) g/dl Globulin 2.8 gm/dL Albumin/Globulin Ratio 1.1 (1-2) Med Orders - Current: Current Medications Allopurinol (Zyloprim) 100 mg PO DAILY [facility] Aspirin (Ecotrin) 325 mg PO BID [facility] Bisacodyl (Dulcolax) 5 mg PO DAILY PRN PRN Reason: Constipation Cholecalciferol (Vitamin D3) 5,000 unit PO DAILY [facility] Docusate Sodium (Colace) 100 mg PO BID [facility] Last Admin: 06/15/19 21:03 Dose: 100 mg Cefazolin Sodium/Dextrose 2 gm (/ Premix) 50 mls @ 100 mls/hr IV Q8H [facility] Stop: 06/16/19 09:29 Last Admin: 06/15/19 23:59 Dose: 100 mls/hr Lisinopril (Prinivil) 5 mg PO DAILY [facility] Metoprolol Succinate (Toprol Xl) 25 mg PO DAILY [facility] Morphine Sulfate (Morphine) 2 mg IVPUSH Q2H PRN PRN Reason: Breakthrough Pain Naloxone HCl (Narcan) 0.1 mg IVPUSH Q5M PRN PRN Reason: Oversedation Ondansetron HCl (Zofran) 4 mg IVPUSH Q6H PRN PRN Reason: Nausea/Vomiting Oxycodone/Acetaminophen (Percocet 325-5 Mg) 1 - 2 tab PO Q4H PRN PRN Reason: Pain Last Admin: 06/16/19 06:59 Dose: 2 tab Pantoprazole Sodium (Protonix) 40 mg PO DAILY@0700 [facility] Last Admin: 06/16/19 07:02 Dose: 40 mg Senna (Senna) 8.6 mg PO BID PRN PRN Reason: Constipation Simvastatin (Zocor) 40 mg PO BEDTIME [facility] Last Admin: 06/15/19 21:03 Dose: 40 mg Tamsulosin HCl (Flomax) 0.4 mg PO DAILY [facility] Discontinued Medications Bupivacaine HCl (Sensorcaine-Mpf 0.25%) Confirm Administered Dose 30 ml .ROUTE .STK-MED ONE Stop: 06/15/19 08:37 Last Admin: 06/15/19 10:59 Dose: 30 ml Cefazolin Sodium (Ancef) Confirm Administered Dose 2 gm .ROUTE .STK-MED ONE Stop: 06/15/19 08:36 Last Admin: 06/15/19 10:55 Dose: 2 gm Cefazolin Sodium (Ancef) Confirm Administered Dose 2 gm .ROUTE .STK-MED ONE Stop: 06/15/19 09:02 Morphine Sulfate 8 mg/Epinephrine HCl 0.3 mg/Cefuroxime Sodium 750 mg/Ketorolac Tromethamine 30 mg/Sodium Chloride 7.9 ml 0 mg .XX ONETIME ONE Stop: 06/15/19 10:31 Last Admin: 06/15/19 21:03 Dose: Not Given Ephedrine Sulfate (Ephedrine 25 Mg/5 Ml Syringe) Confirm Administered Dose 25 mg IV .STK-MED ONE Stop: 06/15/19 10:28 Epinephrine HCl (Adrenalin) Confirm Administered Dose 1 mg .ROUTE .STK-MED ONE Stop: 06/15/19 11:20 Famotidine (Pepcid) 20 mg PO Q12H [facility] Fentanyl (Sublimaze) Confirm Administered Dose 100 mcg .ROUTE .STK-MED ONE Stop: 06/15/19 09:02 Lactated Ringer's (Ringers, Lactated) 1,000 mls @ 125 mls/hr IV ASDIRECTED [facility] Stop: 06/15/19 23:00 Last Admin: 06/15/19 08:00 Dose: 125 mls/hr Lidocaine HCl (Xylocaine-Mpf 1%) Confirm Administered Dose 4 mls @ as directed .ROUTE .STK-MED ONE Stop: 06/15/19 09:02 Lactated Ringer's (Ringers, Lactated) Confirm Administered Dose 1,000 mls @ as directed .ROUTE .STK-MED ONE Stop: 06/15/19 09:11 Iodine (Iodine 2% Mild Tincture) Confirm Administered Dose 30 ml .ROUTE .STK- MED ONE Stop: 06/15/19 08:37 Last Admin: 06/15/19 10:52 Dose: 18 ml Lidocaine/Sodium Bicarbonate (Buffered Lidocaine 1% In Ns 8.4%) 0.25 ml IDERM ONETIME PRN PRN Reason: Prior to IV Start Stop: 06/15/19 18:00 Last Admin: 06/15/19 08:00 Dose: 0.25 ml Ondansetron HCl (Zofran) Confirm Administered Dose 4 mg .ROUTE .STK-MED ONE Stop: 06/15/19 09:01 Propofol (Diprivan 20 Ml) Confirm Administered Dose 200 mg .ROUTE .STK-MED ONE Stop: 06/15/19 09:01 Propofol (Diprivan 20 Ml) Confirm Administered Dose 200 mg .ROUTE .STK-MED ONE Stop: 06/15/19 10:33 Propofol (Diprivan 20 Ml) Confirm Administered Dose 200 mg .ROUTE .STK-MED ONE Stop: 06/15/19 11:11 Ropivacaine (Naropin 0.5%) Confirm Administered Dose 30 ml .ROUTE .STK-MED ONE Stop: 06/15/19 11:20 Sodium Chloride (Saline Flush) 10 ml FLUSH ASDIRECTED PRN PRN Reason: Keep Vein Open Stop: 06/15/19 18:00 Tranexamic Acid (Cyklokapron) Confirm Administered Dose 1,000 mg .ROUTE .STK- MED ONE Stop: 06/15/19 08:36 Last Admin: 06/15/19 11:09 Dose: 1,000 mg Vancomycin HCl (Vancomycin) Confirm Administered Dose 1 gm .ROUTE .STK-MED ONE Stop: 06/15/19 08:36 Last Admin: 06/15/19 11:00 Dose: 1 gm - Exam Wound/Incisions: Dressing Dry and Intact General: Alert, Cooperative, No Acute Distress Lungs: Normal Respiratory Effort Extremities: Other (NVS intact for RLE. Ester's negative. ) Sepsis Event Note - Evaluation Sepsis Screening Result: No Definite Risk - Focused Exam Vital Signs: Vital Signs Temp Pulse Resp BP Pulse Ox 06/16/19 04:12 97.9 F 64 16 105/52 L 92 L 06/15/19 23:59 97.7 F 70 18 100/82 94 L 06/15/19 20:27 98.2 F 58 L 18 118/59 L 95 Date Exam was Performed: 06/16/19 Time Exam was Performed: 07:22 - Problem List Review Problem List Initiated/Reviewed/Updated: Yes - My Orders Last 24 Hours: Active Orders 24 hr Category Date Time Status Patient Status [ADT] Routine ADT 06/15/19 06:47 Active Accu Check [Blood Glucose Check, Bedside] [RC] Care 06/15/19 14:17 Active QIDACANDBED Antiembolic Devices [RC] BID Care 06/15/19 06:48 Active Oxygen Therapy [RC] PRN Care 06/15/19 06:47 Active Pulse Oximetry [RC] ASDIRECTED Care 06/15/19 11:40 Active RT Incentive Spirometry [RC] Q1HWA Care 06/15/19 06:45 Active Ready for Discharge [RC] PER UNIT ROUTINE Care 06/16/19 07:13 Ordered Vital Signs [RC] Q4HR Care 06/15/19 06:47 Active Consult to Physician [CONS] Routine Cons 06/15/19 15:07 Active OT Evaluation and Treatment [CONS] Routine Cons 06/15/19 06:45 Active PT Evaluation and Treatment [CONS] Routine Cons 06/15/19 06:45 Active [employer] [employer] Diet [DIET] Diet 06/15/19 Lunch Active Acetaminophen/oxyCODONE [Percocet 325-5 MG] Med 06/15/19 06:46 Active 1 - 2 tab PO Q4H PRN Aspirin [Ecotrin] Med 06/16/19 09:00 Active 325 mg PO BID Cholecalciferol (Vitamin D3) [Vitamin D3] Med 06/16/19 09:00 Active 5,000 unit PO DAILY Docusate Sodium [Colace] Med 06/15/19 21:00 Active 100 mg PO BID Metoprolol Succinate [Toprol XL] Med 06/16/19 09:00 Active 25 mg PO DAILY Morphine Med 06/15/19 06:47 Active 2 mg IVPUSH Q2H PRN Naloxone [Narcan] Med 06/15/19 06:47 Active 0.1 mg IVPUSH Q5M PRN Ondansetron [Zofran] Med 06/15/19 06:47 Active 4 mg IVPUSH Q6H PRN Pantoprazole [ProTONIX] Med 06/16/19 07:00 Active 40 mg PO DAILY@0700 Sennosides [Senna] Med 06/15/19 06:47 Active 8.6 mg PO BID PRN Simvastatin [Zocor] Med 06/15/19 21:00 Active 40 mg PO BEDTIME Tamsulosin [Flomax] Med 06/16/19 09:00 Active 0.4 mg PO DAILY allopurinoL [Zyloprim] Med 06/16/19 09:00 Active 100 mg PO DAILY bisacodyL [Dulcolax] Med 06/15/19 06:47 Active 5 mg PO DAILY PRN ceFAZolin [Ancef] 2 gm Med 06/15/19 17:00 Active Premix Bag 1 bag IV Q8H lisinopriL [Prinivil] Med 06/16/19 09:00 Active 5 mg PO DAILY Antiembolic Hose [OM.PC] Per Unit Routine Oth 06/15/19 06:49 Ordered Ice Therapy [OM.PC] Per Unit Routine Oth 06/15/19 06:48 Ordered Sequential Compression Device [OM.PC] Per Unit Routine Oth 06/15/19 06:46 Ordered Resuscitation Status Routine Resus Stat 06/15/19 06:47 Ordered Medication Orders Allopurinol (Zyloprim) 100 mg PO DAILY [facility] Aspirin (Ecotrin) 325 mg PO BID [facility] Bisacodyl (Dulcolax) 5 mg PO DAILY PRN PRN Reason: Constipation Cholecalciferol (Vitamin D3) 5,000 unit PO DAILY [facility] Docusate Sodium (Colace) 100 mg PO BID [facility] Last Admin: 06/15/19 21:03 Dose: 100 mg Cefazolin Sodium/Dextrose 2 gm (/ Premix) 50 mls @ 100 mls/hr IV Q8H [facility] Stop: 06/16/19 09:29 Last Admin: 06/15/19 23:59 Dose: 100 mls/hr Infusion: 06/15/19 16:34 Dose: 100 mls/hr Admin: 06/15/19 16:04 Dose: 100 mls/hr Lisinopril (Prinivil) 5 mg PO DAILY [facility] Metoprolol Succinate (Toprol Xl) 25 mg PO DAILY [facility] Morphine Sulfate (Morphine) 2 mg IVPUSH Q2H PRN PRN Reason: Breakthrough Pain Naloxone HCl (Narcan) 0.1 mg IVPUSH Q5M PRN PRN Reason: Oversedation Ondansetron HCl (Zofran) 4 mg IVPUSH Q6H PRN PRN Reason: Nausea/Vomiting Oxycodone/Acetaminophen (Percocet 325-5 Mg) 1 - 2 tab PO Q4H PRN PRN Reason: Pain Last Admin: 06/16/19 06:59 Dose: 2 tab Admin: 06/15/19 23:52 Dose: 2 tab Admin: 06/15/19 16:06 Dose: 2 tab Pantoprazole Sodium (Protonix) 40 mg PO DAILY@0700 [facility] Last Admin: 06/16/19 07:02 Dose: 40 mg Senna (Senna) 8.6 mg PO BID PRN PRN Reason: Constipation Simvastatin (Zocor) 40 mg PO BEDTIME [facility] Last Admin: 06/15/19 21:03 Dose: 40 mg Tamsulosin HCl (Flomax) 0.4 mg PO DAILY [facility] - Assessment Assessment (Free Text/Narrative):: POD#1 - right TKA - Plan Plan (Free Text/Narrative):: 1. Hgb 11.1. 2. Creat 1.4. 3. Medical management per Hospitalist service. 4. Discharge to home today if cleared by Hospitalist service and therapies. 5. 325mg ASA PO BID, frequent mobility, TEDs. The pt's case was discussed with Dr. Fernandez.
--- NOTE | 2019-06-16 07:32 | PCM.CONSN ---
- General Info Date of Service: 06/16/19 Admission Dx/Problem (Free Text): Admission Diagnosis/Problem Admission Diagnosis/Problem Osteoarthritis of knee Functional Status: Reports: Pain Controlled, Tolerating Diet, Ambulating, Urinating, Incentive Spirometry. Denies: New Symptoms - Review of Systems General: Reports: No Symptoms. Denies: Fever, Chills HEENT: Reports: No Symptoms. Denies: Headaches, Sore Throat Pulmonary: Reports: No Symptoms. Denies: Shortness of Breath, Cough, Sputum, Wheezing Cardiovascular: Reports: No Symptoms. Denies: Chest Pain, Palpitations, Dyspnea on Exertion Gastrointestinal: Reports: No Symptoms. Denies: Abdominal Pain, Constipation, Diarrhea, Nausea, Vomiting Genitourinary: Reports: No Symptoms. Denies: Pain Musculoskeletal: Reports: Leg Pain Skin: Reports: No Symptoms. Denies: Cyanosis Neurological: Reports: Difficulty Walking, Gait Disturbance. Denies: Confusion Psychiatric: Reports: No Symptoms - Patient Data Vitals - Most Recent: Last Vital Signs Temp 97.9 F 06/16/19 04:12 Pulse 64 06/16/19 04:12 Resp 16 06/16/19 04:12 BP 105/52 L 06/16/19 04:12 Pulse Ox 92 L 06/16/19 04:12 Weight - Most Recent: 193 lb 4.8 oz I&O - Last 24 Hours: Intake & Output 06/15/19 06/16/19 06/16/19 22:59 06:59 14:59 Intake Total 1340 850 Output Total 900 Balance 1340 -50 Lab Results Last 24 Hours: Laboratory Results - last 24 hr 06/15/19 06/15/19 06/15/19 Range/Units 08:13 17:14 21:15 WBC (4.23-9.07) K/mm3 RBC (4.63-6.08) M/mm3 Hgb (13.7-17.5) gm/dl Hct (40.1-51.0) % MCV (79.0-92.2) fl MCH (25.7-32.2) pg MCHC (32.2-35.5) g/dl RDW Std Deviation (35.1-43.9) fL Plt Count (163-337) K/mm3 MPV (9.4-12.3) fl Sodium (136-145) mEq/L Potassium (3.5-5.1) mEq/L Chloride (98-107) mEq/L Carbon Dioxide (21-32) mEq/L Anion Gap (5-15) BUN (7-18) mg/dL Creatinine (0.7-1.3) mg/dL Est Cr Clr Drug Dosing mL/min Estimated GFR (MDRD) (>60) mL/min BUN/Creatinine Ratio (14-18) Glucose (83-115) mg/dL POC Glucose 105 78 L 84 (83-110) mg/dL Calcium (8.5-10.1) mg/dL Total Bilirubin (0.2-1.0) mg/dL AST (15-37) U/L ALT (16-63) U/L Alkaline Phosphatase (46-116) U/L Total Protein (6.4-8.2) g/dl Albumin (3.4-5.0) g/dl Globulin gm/dL Albumin/Globulin Ratio (1-2) 06/16/19 06/16/19 06/16/19 Range/Units 05:35 05:35 05:48 WBC 7.16 (4.23-9.07) K/mm3 RBC 3.96 L (4.63-6.08) M/mm3 Hgb 11.1 L (13.7-17.5) gm/dl Hct 36.4 L (40.1-51.0) % MCV 91.9 (79.0-92.2) fl MCH 28.0 (25.7-32.2) pg MCHC 30.5 L (32.2-35.5) g/dl RDW Std Deviation 44.9 H (35.1-43.9) fL Plt Count 182 (163-337) K/mm3 MPV 9.7 (9.4-12.3) fl Sodium 140 (136-145) mEq/L Potassium 4.7 (3.5-5.1) mEq/L Chloride 107 (98-107) mEq/L Carbon Dioxide 24 (21-32) mEq/L Anion Gap 13.7 (5-15) BUN 23 H (7-18) mg/dL Creatinine 1.4 H (0.7-1.3) mg/dL Est Cr Clr Drug Dosing 34.81 mL/min Estimated GFR (MDRD) 48 (>60) mL/min BUN/Creatinine Ratio 16.4 (14-18) Glucose 107 (83-115) mg/dL POC Glucose 91 (83-110) mg/dL Calcium 8.7 (8.5-10.1) mg/dL Total Bilirubin 0.4 (0.2-1.0) mg/dL AST 21 (15-37) U/L ALT 25 (16-63) U/L Alkaline Phosphatase 63 (46-116) U/L Total Protein 5.9 L (6.4-8.2) g/dl Albumin 3.1 L (3.4-5.0) g/dl Globulin 2.8 gm/dL Albumin/Globulin Ratio 1.1 (1-2) Med Orders - Current: Current Medications Allopurinol (Zyloprim) 100 mg PO DAILY [facility] Aspirin (Ecotrin) 325 mg PO BID [facility] Bisacodyl (Dulcolax) 5 mg PO DAILY PRN PRN Reason: Constipation Cholecalciferol (Vitamin D3) 5,000 unit PO DAILY [facility] Docusate Sodium (Colace) 100 mg PO BID [facility] Last Admin: 06/15/19 21:03 Dose: 100 mg Cefazolin Sodium/Dextrose 2 gm (/ Premix) 50 mls @ 100 mls/hr IV Q8H [facility] Stop: 06/16/19 09:29 Last Admin: 06/15/19 23:59 Dose: 100 mls/hr Lisinopril (Prinivil) 5 mg PO DAILY [facility] Metoprolol Succinate (Toprol Xl) 25 mg PO DAILY [facility] Morphine Sulfate (Morphine) 2 mg IVPUSH Q2H PRN PRN Reason: Breakthrough Pain Naloxone HCl (Narcan) 0.1 mg IVPUSH Q5M PRN PRN Reason: Oversedation Ondansetron HCl (Zofran) 4 mg IVPUSH Q6H PRN PRN Reason: Nausea/Vomiting Oxycodone/Acetaminophen (Percocet 325-5 Mg) 1 - 2 tab PO Q4H PRN PRN Reason: Pain Last Admin: 06/16/19 06:59 Dose: 2 tab Pantoprazole Sodium (Protonix) 40 mg PO DAILY@0700 [facility] Last Admin: 06/16/19 07:02 Dose: 40 mg Senna (Senna) 8.6 mg PO BID PRN PRN Reason: Constipation Simvastatin (Zocor) 40 mg PO BEDTIME LARRY Last Admin: 06/15/19 21:03 Dose: 40 mg Tamsulosin HCl (Flomax) 0.4 mg PO DAILY LARRY Discontinued Medications Bupivacaine HCl (Sensorcaine-Mpf 0.25%) Confirm Administered Dose 30 ml .ROUTE .STK-MED ONE Stop: 06/15/19 08:37 Last Admin: 06/15/19 10:59 Dose: 30 ml Cefazolin Sodium (Ancef) Confirm Administered Dose 2 gm .ROUTE .STK-MED ONE Stop: 06/15/19 08:36 Last Admin: 06/15/19 10:55 Dose: 2 gm Cefazolin Sodium (Ancef) Confirm Administered Dose 2 gm .ROUTE .STK-MED ONE Stop: 06/15/19 09:02 Morphine Sulfate 8 mg/Epinephrine HCl 0.3 mg/Cefuroxime Sodium 750 mg/Ketorolac Tromethamine 30 mg/Sodium Chloride 7.9 ml 0 mg .XX ONETIME ONE Stop: 06/15/19 10:31 Last Admin: 06/15/19 21:03 Dose: Not Given Ephedrine Sulfate (Ephedrine 25 Mg/5 Ml Syringe) Confirm Administered Dose 25 mg IV .STK-MED ONE Stop: 06/15/19 10:28 Epinephrine HCl (Adrenalin) Confirm Administered Dose 1 mg .ROUTE .STK-MED ONE Stop: 06/15/19 11:20 Famotidine (Pepcid) 20 mg PO Q12H [facility] Fentanyl (Sublimaze) Confirm Administered Dose 100 mcg .ROUTE .STK-MED ONE Stop: 06/15/19 09:02 Lactated Ringer's (Ringers, Lactated) 1,000 mls @ 125 mls/hr IV ASDIRECTED [facility] Stop: 06/15/19 23:00 Last Admin: 06/15/19 08:00 Dose: 125 mls/hr Lidocaine HCl (Xylocaine-Mpf 1%) Confirm Administered Dose 4 mls @ as directed .ROUTE .STK-MED ONE Stop: 06/15/19 09:02 Lactated Ringer's (Ringers, Lactated) Confirm Administered Dose 1,000 mls @ as directed .ROUTE .STK-MED ONE Stop: 06/15/19 09:11 Iodine (Iodine 2% Mild Tincture) Confirm Administered Dose 30 ml .ROUTE .STK- MED ONE Stop: 06/15/19 08:37 Last Admin: 06/15/19 10:52 Dose: 18 ml Lidocaine/Sodium Bicarbonate (Buffered Lidocaine 1% In Ns 8.4%) 0.25 ml IDERM ONETIME PRN PRN Reason: Prior to IV Start Stop: 06/15/19 18:00 Last Admin: 06/15/19 08:00 Dose: 0.25 ml Ondansetron HCl (Zofran) Confirm Administered Dose 4 mg .ROUTE .STK-MED ONE Stop: 06/15/19 09:01 Propofol (Diprivan 20 Ml) Confirm Administered Dose 200 mg .ROUTE .STK-MED ONE Stop: 06/15/19 09:01 Propofol (Diprivan 20 Ml) Confirm Administered Dose 200 mg .ROUTE .STK-MED ONE Stop: 06/15/19 10:33 Propofol (Diprivan 20 Ml) Confirm Administered Dose 200 mg .ROUTE .STK-MED ONE Stop: 06/15/19 11:11 Ropivacaine (Naropin 0.5%) Confirm Administered Dose 30 ml .ROUTE .STK-MED ONE Stop: 06/15/19 11:20 Sodium Chloride (Saline Flush) 10 ml FLUSH ASDIRECTED PRN PRN Reason: Keep Vein Open Stop: 06/15/19 18:00 Tranexamic Acid (Cyklokapron) Confirm Administered Dose 1,000 mg .ROUTE .STK- MED ONE Stop: 06/15/19 08:36 Last Admin: 06/15/19 11:09 Dose: 1,000 mg Vancomycin HCl (Vancomycin) Confirm Administered Dose 1 gm .ROUTE .STK-MED ONE Stop: 06/15/19 08:36 Last Admin: 06/15/19 11:00 Dose: 1 gm - Exam Quality Assessment: DVT Prophylaxis General: Alert, Oriented, Cooperative, No Acute Distress HEENT: Pupils Equal, Pupils Reactive, Mucous Membr. Moist/[place] Neck: Supple, Trachea Midline Lungs: Clear to Auscultation, Normal Respiratory Effort Cardiovascular: Regular Rate, Regular Rhythm GI/Abdominal Exam: Normal Bowel Sounds, Soft, Non-Tender, No Distention, Hernia (Male) Exam: Deferred Back Exam: Normal Inspection, Full Range of Motion Extremities: Normal Capillary Refill, Leg Pain, Limited Range of Motion, Other ( Bandage in place on right leg. Cooling pack in place. ) Peripheral Pulses: 2+: Radial (L), Radial (R), Dorsalis Pedis (L), Dorsalis Pedis (R) Skin: Warm, Dry, Intact Wound/Incisions: Dressing Dry and Intact Neurological: No New Focal Deficit Psy/Mental Status: Alert, Normal Affect, Normal Mood Sepsis Event Note - Evaluation Sepsis Screening Result: No Definite Risk - Focused Exam Vital Signs: Vital Signs Temp Pulse Resp BP Pulse Ox 06/16/19 04:12 97.9 F 64 16 105/52 L 92 L 06/15/19 23:59 97.7 F 70 18 100/82 94 L 06/15/19 20:27 98.2 F 58 L 18 118/59 L 95 Date Exam was Performed: 06/16/19 Time Exam was Performed: 09:40 Consult PN Assessment/Plan POD#: 1 Procedures: Procedures ASSAY OF BLOOD/URIC ACID (05/27/19) ASSAY OF LACTIC ACID (03/29/19) ASSAY OF LIPASE (05/21/15) ASSAY OF MAGNESIUM (05/21/15) ASSAY OF PHOSPHORUS (05/21/15) ASSAY OF TROPONIN QUANT (05/21/15) ASSAY THYROID STIM HORMONE (05/27/19) C-REACTIVE PROTEIN (05/27/19) CARDIOVASCULAR STRESS TEST (10/16/17) COMPLETE CBC W/AUTO DIFF WBC (05/27/19) COMPREHEN METABOLIC PANEL (05/27/19) CT ABD & PELV W/CONTRAST (05/21/15) CT THORAX W/O DYE (05/30/15) CULTURE SCREEN ONLY (09/04/15) ELECTROCARDIOGRAM REPORT (05/26/19) ELECTROCARDIOGRAM TRACING (05/26/19) EMERGENCY DEPT VISIT (05/09/18) EMERGENCY DEPT VISIT (04/29/18) EMERGENCY DEPT VISIT (05/21/15) EXTRACRANIAL BILAT STUDY (06/02/19) FLUOROSCOPY <1 HR PHYS/QHP (05/11/18) GAIT TRAINING THERAPY (05/11/18) GLUCOSE BLOOD TEST (05/11/18) GLYCOSYLATED HEMOGLOBIN TEST (05/27/19) HT MUSCLE IMAGE SPECT MULT (10/16/17) HYDRATE IV INFUSION ADD-ON (05/21/15) INSERT TEMP BLADDER CATH (05/09/18) LIPID PANEL (05/27/19) MEASURE BLOOD OXYGEN LEVEL (05/11/18) MEASURE BLOOD OXYGEN LEVEL (05/11/18) METABOLIC PANEL TOTAL CA (05/11/18) MR-MYLES DNA AMP PROBE (05/11/18) OFFICE/OUTPATIENT VISIT EST (05/26/19) OFFICE/OUTPATIENT VISIT EST (09/04/15) OT EVAL MOD COMPLEX 45 MIN (05/11/18) OT EVALUATION (05/21/15) PROTHROMBIN TIME (05/27/19) PT EVAL LOW COMPLEX 20 MIN (05/11/18) PT EVALUATION (05/21/15) ROUTINE VENIPUNCTURE (05/27/19) STREP A AG IA (09/04/15) THER/PROPH/DIAG INJ IV PUSH (05/21/15) THERAPEUTIC ACTIVITIES (05/11/18) THERAPEUTIC EXERCISES (05/11/18) TISSUE EXAM FOR FUNGI (04/04/19) TREATMENT OF ANKLE FRACTURE (05/11/18) TTE W/DOPPLER COMPLETE (06/02/19) TX/PRO/DX INJ NEW DRUG ADDON (05/21/15) URINALYSIS AUTO W/O SCOPE (03/29/19) URINALYSIS AUTO W/SCOPE (05/27/19) US EXAM ABDO BACK WALL COMP (04/07/19) US URINE CAPACITY MEASURE (05/09/18) VITAMIN B-12 (05/27/19) X-RAY EXAM CHEST 2 VIEWS (05/26/19) X-RAY EXAM HIP UNI 2-3 VIEWS (04/04/19) X-RAY EXAM L-2 SPINE 4/>VWS (10/04/18) X-RAY EXAM OF ABDOMEN (05/21/15) X-RAY EXAM OF ANKLE (04/29/18) (1) S/P total knee arthroplasty SNOMED Code(s): 1265786064156, 572270464, 3746633132556 Code(s): Z96.659 - PRESENCE OF UNSPECIFIED ARTIFICIAL KNEE JOINT Priority: High Current Visit: Yes Qualifiers: Laterality: right Qualified Code(s): Z96.651 - Presence of right artificial knee joint (2) History of retinal detachment SNOMED Code(s): 887862027 Code(s): Z86.69 - PERSONAL HISTORY OF DIS OF THE NERVOUS SYS AND SENSE ORGANS Priority: Low Current Visit: No (3) CAD (coronary artery disease) SNOMED Code(s): 05317521 Code(s): I25.10 - ATHSCL HEART DISEASE OF [place] CORONARY ARTERY W/O ANG PCTRS Priority: Low Current Visit: No Qualifiers: Coronary Disease-Associated Artery/Lesion type: unspecified vessel or lesion type [place] vs. transplanted heart: unspecified whether redding or transplanted heart Associated angina: without angina Qualified Code(s): I25.10 - Atherosclerotic heart disease of redding coronary artery without angina pectoris (4) HTN (hypertension) SNOMED Code(s): 59832644 Code(s): I10 - ESSENTIAL (PRIMARY) HYPERTENSION Priority: Low Current Visit: No Qualifiers: Hypertension type: unspecified Qualified Code(s): I10 - Essential (primary ) hypertension (5) History of small bowel obstruction SNOMED Code(s): 687222239036076 Code(s): Z87.19 - PERSONAL HISTORY OF OTHER DISEASES OF THE DIGESTIVE SYSTEM Priority: Low Current Visit: No (6) GERD (gastroesophageal reflux disease) SNOMED Code(s): 332280084 Code(s): K21.9 - GASTRO-ESOPHAGEAL REFLUX DISEASE WITHOUT ESOPHAGITIS Priority: Low Current Visit: No Qualifiers: Esophagitis presence: esophagitis presence not specified Qualified Code(s) : K21.9 - Gastro-esophageal reflux disease without esophagitis (7) Chronic constipation SNOMED Code(s): 229489280 Code(s): K59.09 - OTHER CONSTIPATION Priority: Low Current Visit: No (8) BPH (benign prostatic hyperplasia) SNOMED Code(s): 097210892 Code(s): N40.0 - BENIGN PROSTATIC HYPERPLASIA WITHOUT LOWER URINRY TRACT SYMP Priority: Low Current Visit: No Qualifiers: Lower urinary tract symptom presence: unspecified whether lower urinary tract symptoms present Qualified Code(s): N40.0 - Benign prostatic hyperplasia without lower urinary tract symptoms (9) Renal calculi SNOMED Code(s): 96408001 Code(s): N20.0 - CALCULUS OF KIDNEY Priority: Low Current Visit: No (10) Hyperuricuria SNOMED Code(s): 52983401 Code(s): R82.998 - OTHER ABNORMAL FINDINGS IN URINE Priority: Low Current Visit: No (11) Chronic back pain SNOMED Code(s): 654866318 Code(s): M54.9 - DORSALGIA, UNSPECIFIED; G89.29 - OTHER CHRONIC PAIN Priority: Low Current Visit: No Qualifiers: Back pain location: back pain in unspecified location Back pain laterality : unspecified Qualified Code(s): M54.9 - Dorsalgia, unspecified; G89.29 - Other chronic pain (12) History of tobacco use SNOMED Code(s): 660495965 Code(s): Z87.891 - PERSONAL HISTORY OF NICOTINE DEPENDENCE Priority: Low Current Visit: No (13) Diabetes mellitus SNOMED Code(s): 62786455 Code(s): E11.9 - TYPE 2 DIABETES MELLITUS WITHOUT COMPLICATIONS Priority: Medium Current Visit: No Qualifiers: Diabetes mellitus type: type 2 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 inspector insulin use: without detention use Diabetes mellitus complication status: with other specified complication Qualified Code(s): E11.69 - Type 2 diabetes mellitus with other specified complication (14) HLD (hyperlipidemia) SNOMED Code(s): 28092969 Code(s): E78.5 - HYPERLIPIDEMIA, UNSPECIFIED Priority: Low Current Visit : No Qualifiers: Hyperlipidemia type: unspecified Qualified Code(s): E78.5 - Hyperlipidemia , unspecified (15) History of bladder cancer SNOMED Code(s): 630013841, 148673744 Code(s): Z85.51 - PERSONAL HISTORY OF MALIGNANT NEOPLASM OF BLADDER Priority: Low Current Visit: No (16) Osteoarthritis SNOMED Code(s): 246106127 Code(s): M19.90 - UNSPECIFIED OSTEOARTHRITIS, UNSPECIFIED SITE Priority: Low Current Visit: No Qualifiers: Osteoarthritis location: knee Osteoarthritis type: primary Laterality: bilateral Qualified Code(s): M17.0 - Bilateral primary osteoarthritis of knee Problem List Initiated/Reviewed/Updated: Yes My Orders Last 24 Hours: My Active Orders 06/15/19 14:17 Accu Check [Blood Glucose Check, Bedside] [] QIDACANDBED Plan: I/P: Acute: S/P right total knee arthroplasty - post-operative day 1 -DVT prophylaxis and pain management per primary care team -PT/OT -IS/RT -Monitor oxygen saturation -Titrate oxygen as needed -Home medications reviewed -Vital signs stable -Monitor labs -Pre-operative Hgb was 12.5; Now 11.1 -Pre-operative GFR was 48; Now 48 -Pre-operative creatinine 1.4; Now 1.4 -Pre-operative BUN 21; Now 23 -Pre-operative A1C 6.4% -Pre-operative 12-lead EKG shows sinus rhythm with incomplete RBBB Osteoarthritis of bilateral knee -Pain management per primary care team S/P Left knee cortisone injection -Management by primary team Chronic: HTN Hyperuricemia LBP Bladder cancer Hypothermia Insomnia Type II DM CAD CKD III Retinal detachment HLD BPH Renal Calculus Osteoarthritis Squamous cell carcinoma Chronic constipation Plan: CM for discharge planning GI prophylaxis Home medications as indicated Other orders as listed above Routine AM labs He is a full code. His PCP is Dr. Neely From a hospitalist standpoint Noman is doing well. His pain is controlled. He has been up ambulating and working with therapies. His labs and vital signs remain stable. He has been utilizing his IS. He has urinated and is off of oxygen. He is cleared from discharge pending primary team and PT/OT agreement. Thank you for allowing us to participate in the care of this patient!!
--- NOTE | 2019-06-16 07:53 | PCM48HPAN ---
Post Anesthesia Note - EVALUATION WITHIN 48HRS OF ANESTHETIC Vital Signs in Normal Range: Yes Patient Participated in Evaluation: Yes Respiratory Function Stable: Yes Airway Patent: Yes Cardiovascular Function Stable: Yes Hydration Status Stable: Yes Pain Control Satisfactory: Yes Nausea and Vomiting Control Satisfactory: Yes Mental Status Recovered: Yes Vital Signs: Last Vital Signs Temp 36.6 C 06/16/19 04:12 Pulse 64 06/16/19 04:12 Resp 16 06/16/19 04:12 BP 105/52 L 06/16/19 04:12 Pulse Ox 92 L 06/16/19 04:12
--- NOTE | 2019-06-16 08:48 | PCM.OPNOTE ---
- General Post-Op/Procedure Note Date of Surgery/Procedure: 06/15/19 Operative Procedure(s): right total knee arthroplasty Pre Op Diagnosis: right knee osteoarthrosis Post-Op Diagnosis: Same Anesthesia Technique: Local, MAC, Spinal Primary Surgeon: Cash Fernandez Anesthesia Provider: Morgan Buchanan Spring Fitter Helper: Migdalia Machado Spring Fitter Helper: Jennifer Goncalves EBHermes in mLs: 5 Complications: None Condition: Good Free Text/Narrative:: Intake & Output 06/15/19 06/16/19 06/16/19 22:59 06:59 14:59 Intake Total 1340 850 Output Total 900 Balance 1340 -50 5 femur 4 tibia 9mm 32x10
[2019-06-16] MEDS ORDERED: Cholecalciferol (Vitamin D3) 5,000 UNIT Tab PO SCH (09:00)
[2019-06-16] MEDS ORDERED: Lisinopril 5 MG Tab PO SCH (09:00)
[2019-06-16] MEDS ORDERED: Aspirin 325 MG Tab.EC PO SCH (09:00)
[2019-06-16] MEDS ORDERED: Allopurinol 100 MG Tab PO SCH (09:00)
[2019-06-16] MEDS ORDERED: Tamsulosin 0.4 MG Cap.ER PO SCH (09:00)
[2019-06-16] MEDS ORDERED: Metoprolol Succinate 25 MG Tab.ER PO SCH (09:00)
[2019-06-16] MEDS: ceFAZolin 2 GM in Premix Bag 1 BAG IV SCH ×2 (09:10→10:30)
[2019-06-16] MEDS: Docusate Sodium 100 MG Cap PO SCH (09:10)
--- NOTE | 2019-06-16 09:38 | OR ---
DATE OF OPERATION: 06/15/2019 SURGEON: Cash Fernandez MD OPERATION PERFORMED: Right total knee arthroplasty. PREOPERATIVE DIAGNOSIS: Right knee osteoarthrosis. POSTOPERATIVE DIAGNOSIS: Right knee osteoarthrosis. ANESTHESIA: Local MAC with spinal. ANESTHESIA PROVIDER: Celio Carvalho. CHRONOMETER TESTER: Migdalia Machado PA-C, and Jennifer Goncalves LPN. ESTIMATED BLOOD LOSS: 5 mL. COMPLICATIONS: None. CONDITION: Stable. IMPLANTS: 1. Shelbie size 5 cemented PS femur. 2. Shelbie size 4 cemented universal tibial base plate. 3. Lemitar size 4 9 mm PS X3 polyethylene insert. 4. Lemitar size 32 x 10 mm cemented asymmetric patella. DESCRIPTION OF PROCEDURE: The patient was identified in the preop holding area. Proper site was marked and identified by the surgeon. The patient was taken back to the operating theater. After adequate anesthesia, the patient's right lower extremity had a nonsterile tourniquet applied and it was sterilely prepped and draped in the usual sterile fashion. OR time-out was performed. The patient received 2 g IV Ancef. At this time, the right lower extremity was exsanguinated. Tourniquet was insufflated to 300 mmHg. Standard medial parapatellar incision was made. Medial parapatellar arthrotomy was created. Deep fibers of the MCL were raised and anterior fat pad was resected. At this time, attention was turned to the patella. Patella measured a 25, it was resected to a 14 for a 32 x 10 patella. Drill holes were then drilled and found to be in adequate position. The drill was then drilled in the distal femur and the intramedullary distal femoral cutting guide was then placed. 8 mm was resected off the distal femur and was found to be an adequate resection. Sizing guide was placed. It was found to be a size 5 cemented PS femur that was shown on the implant record at the beginning of this dictation. The drill holes were drilled for the epicondylar axis using [place] line and epicondyles as reference. At this time, the 4-in-1 cutting block was placed. An anterior posterior and anterior and posterior chamfer cuts were then completed. Box cut was completed at this time. Attention was turned to the tibia. The posterior medial lateral retractors were placed. The extramedullary tibial guide was placed. It was placed in the old footprint of the ACL. It was aligned with the center of the ankle and 0 degrees of slope, 9 mm was then resected off the unaffected side. There was found to be an acceptable reduction. At this time, posterior osteophytes were removed along with medial and lateral meniscus. A trial implant was placed with a correct sized tibia that was mentioned at the beginning of the dictation. A Lemitar size 4 9 mm PS X3 polyethylene insert was then placed. The patient's knee was brought through range of motion. The patella was tracking centrally and was stable to varus and valgus stress. Alignment was found to be roughly at 0 degrees. The tibia was stamped and drilled in proper rotation. The universal tibial base plate was impacted in place. Next, the Lemitar size 5 cemented PS femur impacted into place and the Shelbie size 4 9 mm PS X3 polyethylene insert was placed. The patient's knee was brought into full extension. The patella was then cemented in place at this time. One liter dilute Betadine solution was irrigated through the knee along with 3 L of pulse lavage irrigation with Ancef. Periarticular injection was then completed. The patient's knee was brought through a range of motion. Once the cement had time to set up and it was found to be stable to varus valgus stress, the patella was tracking centrally with full range of motion. At this time, a #2 barbed suture was used for closure of the medial parapatellar arthrotomy. Topical tranexamic acid was placed. 2-0 Vicryl was used subcutaneously, Prineo was used for the skin. The patient tolerated the procedure well and was sent to the PACU in stable condition. MMODAL /[id number] RENEE
--- NOTE | 2019-06-16 12:48 | PCM.DCSUM1 ---
Discharge Summary - Hospital Course Brief History: Noman is an 84 yo male who underwent right TKA with Dr. Fernandez on 06-15-2019. The procedure was completed under spinal anesthesia with sedation. The pt tolerated the procedure well and was admitted to the Medical- Surgical Unit. Medical management was provided by the Hospitalist service. The pt's Hospital course was uneventful. The pt's Hgb on POD#1 was 11.1. On POD#1, 325mg ASA BID was initiated for VTE prophylaxis. SCDs and TEDs were also ordered. A Mepilex dressing was placed at the incision site at the time of surgery and remained clean and dry. The pt participated in P.T. and O.T. and progressed well. The pt was allowed to WBAT. He used a FWW for mobility. On POD#1, the pt was deemed appropriate to discharge to home with his . - Discharge Data Discharge Date: 06/16/19 Discharge Disposition: Home, Self-Care 01 Condition: Good - Referral to Home Health Primary Care Physician: Damon Sorto MD - Patient Summary/Data Operative Procedure(s) Performed: right total knee arthroplasty Consults: Consultations 06/15/19 06:45 OT Evaluation and Treatment [CONS] Routine PT Evaluation and Treatment [CONS] Routine 06/15/19 15:07 Consult to Physician [CONS] Routine - Patient Instructions Diet: Usual Diet as Tolerated Activity: Apply Ice, As Tolerated, Elevate Extremity, Full Weight Bearing Driving: Do Not Drive Showering/Bathing: May Shower Wound/Incision Care: Keep Operative Site/Wound Site Clean and Dry, Do NOT Change Dressing Notify Provider of: Fever, Increased Pain, Swelling and Redness, Drainage, Nausea and/or Vomiting Other/Special Instructions: Please get up and moving around EVERY HOUR while awake. This helps to prevent blood clots. Please use your walker and have help with mobility as needed. Take a short walk in your home every hour while awake. Please take 325mg Aspirin TWICE daily. The aspirin is being used for blood clot prevention and not for pain management so please do not miss a dose of the medication. Do not use the 81mg aspirin daily while using the 325mg aspirin twice daily. When the course of 325mg aspirin is completed, you may resume use of 81mg aspirin. You could use a medication like Pepcid or Tagamet and a medication like Prilosec or Nexium to protect your stomach while you are using the aspirin. At home, please complete the exercises that you learned during the Hospital stay. Schedule for physical therapy. Use the pain medication as needed. The medication may cause drowsiness and constipation. Contact your primary care provider for instructions if you are constipated. You may use a stool softener like docusate sodium or Colace 100mg twice daily and/or a laxative like Miralax daily for constipation. Increase your water and fiber intake while you are using the pain medication. Discontinue use of the pain medication as soon as able. Please do not use other medications that may cause drowsiness (other pain medications, anxiety pills, cold medications, sleeping pills, etc) while using the prescription pain medication. Do not use alcohol while using the pain medication. You may use acetaminophen or Tylenol for pain management, however, please ensure you are not using over 4000 mg or 4 grams of acetaminophen per day from all sources. Your pain medication has 325mg of acetaminophen per tablet. Wear the SOPHIA hose during the day and you may remove these at night. Elevate the limb to decrease swelling. Place ice to the area often. Place a towel between your skin and the blue pad. Use the incentive spirometer often. Take deep breaths throughout the day. Please keep the dressing in place until follow-up. Notify the Clinic if the dressing becomes saturated. Increase your protein intake while you are healing. Please closely monitor your blood sugars and notify your primary care provider with abnormal values. Elevated blood sugars increases the risk of infection. Call the Clinic with questions or concerns - [phone]. - Discharge Plan *PRESCRIPTION DRUG MONITORING PROGRAM REVIEWED*: No *COPY OF PRESCRIPTION DRUG MONITORING REPORT IN PATIENT BRENNEN: No Prescriptions/Med Rec: Acetaminophen/oxyCODONE [Percocet 325-5 MG] 1 - 2 tab PO Q4H PRN #60 tablet PRN Reason: Pain Aspirin [Ecotrin EC] 325 mg PO BID #84 tab.ec Home Medications: Home Meds Omeprazole 20 mg PO DAILY 05/21/15 [History] Simvastatin [Zocor] 40 mg PO DAILY 05/21/15 [History] Tamsulosin [Flomax] 0.4 mg PO DAILY 04/29/18 [History] Allopurinol [Zyloprim] 100 mg PO DAILY 06/14/19 [History] Alogliptin Benzoate [Alogliptin] 12.5 mg PO DAILY 06/14/19 [History] Cholecalciferol (Vitamin D3) [Vitamin D3] 5,000 unit PO DAILY 06/14/19 [History] Lisinopril [Zestril] 5 mg PO DAILY 06/14/19 [History] metFORMIN [Glucophage] 850 mg PO DAILY 06/14/19 [History] Metoprolol Succinate [Toprol XL 50mg] 25 mg PO DAILY 06/15/19 [History] Acetaminophen/oxyCODONE [Percocet 325-5 MG] 1 - 2 tab PO Q4H PRN #60 tablet [Rx] Aspirin [Ecotrin EC] 325 mg PO BID #84 tab.ec 06/16/19 [Rx] Docusate Sodium [Colace] 100 mg PO BID cap 06/16/19 [Rx] Sennosides [Senna] 8.6 mg PO BID PRN tablet 06/16/19 [Rx] bisacodyL [Dulcolax] 5 mg PO DAILY PRN tablet 06/16/19 [Rx] Patient Handouts: Total Knee Replacement, [id number] Referrals: Migdalia Machado PA-C [Physician [employer]] - (please attend the scheduled follow up appointments with Migdalia Machado as listed 06/22/2019 at 1245 06/29/2019 at 1245 08/03/2019 at 1245) - Discharge Summary/Plan Comment DC Time >30 min.: No - Patient Data Vitals - Most Recent: Last Vital Signs Temp 98.1 F 06/16/19 07:41 Pulse 61 06/16/19 09:09 Resp 16 06/16/19 07:41 BP 109/59 L 06/16/19 09:10 Pulse Ox 94 L 06/16/19 07:41 Weight - Most Recent: 193 lb 4.8 oz I&O - Last 24 hours: Intake & Output 06/15/19 06/16/19 06/16/19 22:59 06:59 14:59 Intake Total 1340 850 300 Output Total 900 Balance 1340 -50 300 Lab Results - Last 24 hrs: Laboratory Results - last 24 hr 06/15/19 06/15/19 06/16/19 Range/Units 17:14 21:15 05:35 WBC 7.16 (4.23-9.07) K/mm3 RBC 3.96 L (4.63-6.08) M/mm3 Hgb 11.1 L (13.7-17.5) gm/dl Hct 36.4 L (40.1-51.0) % MCV 91.9 (79.0-92.2) fl MCH 28.0 (25.7-32.2) pg MCHC 30.5 L (32.2-35.5) g/dl RDW Std Deviation 44.9 H (35.1-43.9) fL Plt Count 182 (163-337) K/mm3 MPV 9.7 (9.4-12.3) fl Sodium (136-145) mEq/L Potassium (3.5-5.1) mEq/L Chloride (98-107) mEq/L Carbon Dioxide (21-32) mEq/L Anion Gap (5-15) BUN (7-18) mg/dL Creatinine (0.7-1.3) mg/dL Est Cr Clr Drug Dosing mL/min Estimated GFR (MDRD) (>60) mL/min BUN/Creatinine Ratio (14-18) Glucose (83-115) mg/dL POC Glucose 78 L 84 (83-110) mg/dL Calcium (8.5-10.1) mg/dL Total Bilirubin (0.2-1.0) mg/dL AST (15-37) U/L ALT (16-63) U/L Alkaline Phosphatase (46-116) U/L Total Protein (6.4-8.2) g/dl Albumin (3.4-5.0) g/dl Globulin gm/dL Albumin/Globulin Ratio (1-2) 06/16/19 06/16/19 Range/Units 05:35 05:48 WBC (4.23-9.07) K/mm3 RBC (4.63-6.08) M/mm3 Hgb (13.7-17.5) gm/dl Hct (40.1-51.0) % MCV (79.0-92.2) fl MCH (25.7-32.2) pg MCHC (32.2-35.5) g/dl RDW Std Deviation (35.1-43.9) fL Plt Count (163-337) K/mm3 MPV (9.4-12.3) fl Sodium 140 (136-145) mEq/L Potassium 4.7 (3.5-5.1) mEq/L Chloride 107 (98-107) mEq/L Carbon Dioxide 24 (21-32) mEq/L Anion Gap 13.7 (5-15) BUN 23 H (7-18) mg/dL Creatinine 1.4 H (0.7-1.3) mg/dL Est Cr Clr Drug Dosing 34.81 mL/min Estimated GFR (MDRD) 48 (>60) mL/min BUN/Creatinine Ratio 16.4 (14-18) Glucose 107 (83-115) mg/dL POC Glucose 91 (83-110) mg/dL Calcium 8.7 (8.5-10.1) mg/dL Total Bilirubin 0.4 (0.2-1.0) mg/dL AST 21 (15-37) U/L ALT 25 (16-63) U/L Alkaline Phosphatase 63 (46-116) U/L Total Protein 5.9 L (6.4-8.2) g/dl Albumin 3.1 L (3.4-5.0) g/dl Globulin 2.8 gm/dL Albumin/Globulin Ratio 1.1 (1-2) Med Orders - Current: Current Medications Allopurinol (Zyloprim) 100 mg PO DAILY [facility] Last Admin: 06/16/19 09:09 Dose: 100 mg Aspirin (Ecotrin) 325 mg PO BID [facility] Last Admin: 06/16/19 09:09 Dose: 325 mg Bisacodyl (Dulcolax) 5 mg PO DAILY PRN PRN Reason: Constipation Cholecalciferol (Vitamin D3) 5,000 unit PO DAILY [facility] Last Admin: 06/16/19 09:10 Dose: 5,000 unit Docusate Sodium (Colace) 100 mg PO BID [facility] Last Admin: 06/16/19 09:10 Dose: 100 mg Lisinopril (Prinivil) 5 mg PO DAILY [facility] Last Admin: 06/16/19 09:10 Dose: 5 mg Metoprolol Succinate (Toprol Xl) 25 mg PO DAILY [facility] Last Admin: 06/16/19 09:09 Dose: 25 mg Morphine Sulfate (Morphine) 2 mg IVPUSH Q2H PRN PRN Reason: Breakthrough Pain Naloxone HCl (Narcan) 0.1 mg IVPUSH Q5M PRN PRN Reason: Oversedation Ondansetron HCl (Zofran) 4 mg IVPUSH Q6H PRN PRN Reason: Nausea/Vomiting Oxycodone/Acetaminophen (Percocet 325-5 Mg) 1 - 2 tab PO Q4H PRN PRN Reason: Pain Last Admin: 06/16/19 11:21 Dose: 2 tab Pantoprazole Sodium (Protonix) 40 mg PO DAILY@0700 [facility] Last Admin: 06/16/19 07:02 Dose: 40 mg Senna (Senna) 8.6 mg PO BID PRN PRN Reason: Constipation Simvastatin (Zocor) 40 mg PO BEDTIME [facility] Last Admin: 06/15/19 21:03 Dose: 40 mg Tamsulosin HCl (Flomax) 0.4 mg PO DAILY [facility] Last Admin: 06/16/19 09:10 Dose: 0.4 mg Discontinued Medications Bupivacaine HCl (Sensorcaine-Mpf 0.25%) Confirm Administered Dose 30 ml .ROUTE .STK-MED ONE Stop: 06/15/19 08:37 Last Admin: 06/15/19 10:59 Dose: 30 ml Cefazolin Sodium (Ancef) Confirm Administered Dose 2 gm .ROUTE .STK-MED ONE Stop: 06/15/19 08:36 Last Admin: 06/15/19 10:55 Dose: 2 gm Cefazolin Sodium (Ancef) Confirm Administered Dose 2 gm .ROUTE .STK-MED ONE Stop: 06/15/19 09:02 Morphine Sulfate 8 mg/Epinephrine HCl 0.3 mg/Cefuroxime Sodium 750 mg/Ketorolac Tromethamine 30 mg/Sodium Chloride 7.9 ml 0 mg .XX ONETIME ONE Stop: 06/15/19 10:31 Last Admin: 06/15/19 21:03 Dose: Not Given Ephedrine Sulfate (Ephedrine 25 Mg/5 Ml Syringe) Confirm Administered Dose 25 mg IV .STK-MED ONE Stop: 06/15/19 10:28 Epinephrine HCl (Adrenalin) Confirm Administered Dose 1 mg .ROUTE .STK-MED ONE Stop: 06/15/19 11:20 Famotidine (Pepcid) 20 mg PO Q12H [facility] Fentanyl (Sublimaze) Confirm Administered Dose 100 mcg .ROUTE .STK-MED ONE Stop: 06/15/19 09:02 Lactated Ringer's (Ringers, Lactated) 1,000 mls @ 125 mls/hr IV ASDIRECTED [facility] Stop: 06/15/19 23:00 Last Admin: 06/15/19 08:00 Dose: 125 mls/hr Cefazolin Sodium/Dextrose 2 gm (/ Premix) 50 mls @ 100 mls/hr IV Q8H [facility] Stop: 06/16/19 09:29 Last Admin: 06/16/19 10:30 Dose: Not Given Lidocaine HCl (Xylocaine-Mpf 1%) Confirm Administered Dose 4 mls @ as directed .ROUTE .STK-MED ONE Stop: 06/15/19 09:02 Lactated Ringer's (Ringers, Lactated) Confirm Administered Dose 1,000 mls @ as directed .ROUTE .STK-MED ONE Stop: 06/15/19 09:11 Iodine (Iodine 2% Mild Tincture) Confirm Administered Dose 30 ml .ROUTE .STK- MED ONE Stop: 06/15/19 08:37 Last Admin: 06/15/19 10:52 Dose: 18 ml Lidocaine/Sodium Bicarbonate (Buffered Lidocaine 1% In Ns 8.4%) 0.25 ml IDERM ONETIME PRN PRN Reason: Prior to IV Start Stop: 06/15/19 18:00 Last Admin: 06/15/19 08:00 Dose: 0.25 ml Ondansetron HCl (Zofran) Confirm Administered Dose 4 mg .ROUTE .STK-MED ONE Stop: 06/15/19 09:01 Propofol (Diprivan 20 Ml) Confirm Administered Dose 200 mg .ROUTE .STK-MED ONE Stop: 06/15/19 09:01 Propofol (Diprivan 20 Ml) Confirm Administered Dose 200 mg .ROUTE .STK-MED ONE Stop: 06/15/19 10:33 Propofol (Diprivan 20 Ml) Confirm Administered Dose 200 mg .ROUTE .STK-MED ONE Stop: 06/15/19 11:11 Ropivacaine (Naropin 0.5%) Confirm Administered Dose 30 ml .ROUTE .STK-MED ONE Stop: 06/15/19 11:20 Sodium Chloride (Saline Flush) 10 ml FLUSH ASDIRECTED PRN PRN Reason: Keep Vein Open Stop: 06/15/19 18:00 Tranexamic Acid (Cyklokapron) Confirm Administered Dose 1,000 mg .ROUTE .STK- MED ONE Stop: 06/15/19 08:36 Last Admin: 06/15/19 11:09 Dose: 1,000 mg Vancomycin HCl (Vancomycin) Confirm Administered Dose 1 gm .ROUTE .STK-MED ONE Stop: 06/15/19 08:36 Last Admin: 06/15/19 11:00 Dose: 1 gm
[2019-06-16 13:46] VITALS: BP 111/60; PULSE 59
--- NOTE | 2019-06-17 08:32 | PCM48HPAN ---
Post Anesthesia Note - EVALUATION WITHIN 48HRS OF ANESTHETIC Vital Signs in Normal Range: Yes Patient Participated in Evaluation: Yes Respiratory Function Stable: Yes Airway Patent: Yes Cardiovascular Function Stable: Yes Hydration Status Stable: Yes Pain Control Satisfactory: Yes Nausea and Vomiting Control Satisfactory: Yes Mental Status Recovered: Yes Vital Signs: Last Vital Signs Temp 36.8 C 06/16/19 12:21 Pulse 59 L 06/16/19 12:21 Resp 16 06/16/19 12:00 BP 111/60 06/16/19 12:21 Pulse Ox 92 L 06/16/19 12:21 - COMMENTS/OBSERVATIONS Free Text/Narrative:: no anesthesia complications noted
== END 2019-06-16 13:28 | disposition home or self-care (01) | DRG 470 ==
LOC: JD.MS 07:33 → EDSTATUS 08:00
PROVIDERS: ADMIT Orthopaedic Surgery; ATTEND Orthopaedic Surgery
PROC: 0SRC0J9 Replacement of Right Knee Joint with Synthetic Substitute, Cemented, Open Approach (ICD-10-PCS; principal; 2019-06-15)
DX: M17.11 Unilateral primary osteoarthritis, right knee (principal); E78.5 Hyperlipidemia, unspecified; E03.9 Hypothyroidism, unspecified; G47.00 Insomnia, unspecified; I25.10 Atherosclerotic heart disease of native coronary artery without angina pectoris; N18.3 Chronic kidney disease, stage 3 (moderate); K59.09 Other constipation; I12.9 Hypertensive chronic kidney disease with stage 1 through stage 4 chronic kidney disease, or unspecified chronic kidney disease; E11.22 Type 2 diabetes mellitus with diabetic chronic kidney disease; N40.0 Benign prostatic hyperplasia without lower urinary tract symptoms; K21.9 Gastro-esophageal reflux disease without esophagitis; M54.5 Low back pain; G89.29 Other chronic pain; E66.9 Obesity, unspecified; Z90.49 Acquired absence of other specified parts of digestive tract; Z98.49 Cataract extraction status, unspecified eye; Z98.890 Other specified postprocedural states; Z85.828 Personal history of other malignant neoplasm of skin; Z88.5 Allergy status to narcotic agent; Z79.82 Long term (current) use of aspirin; Z79.84 Long term (current) use of oral hypoglycemic drugs; Z79.899 Other long term (current) drug therapy; Z87.891 Personal history of nicotine dependence; Z85.51 Personal history of malignant neoplasm of bladder; Z99.81 Dependence on supplemental oxygen; Z68.31 Body mass index [BMI] 31.0-31.9, adult
CPT/HCPCS: 01402; 36415; 64450; 73560-26-RT; 73560-RT; 80053; 82962; 85027; 87641; 94760; 97110-GP; 97116-GP; 97162-GP; 97165-GO; 97530-GP; 97535-GO; 99222; 99232; A9270-GY; C1713; C1776; J0171; J0690; J0697; J1885; J2001; J2270; J2405; J2704; J2795; J3010; J3370; J3490; J7120

== ENCOUNTER 2019-09-09 10:58 | Emergency (ER) | payer MEDICARE, BC ==
[2019-09-09 11:15] VITALS: BP 133/54; PULSE 65
[2019-09-09] MEDS ORDERED: Ketorolac 60 MG/2 ML SDV IM ONE ×2 (11:54→13:41)
--- NOTE | 2019-09-09 11:58 | EDM.PDOC ---
ED HPI GENERAL MEDICAL PROBLEM - General Chief Complaint: Flank Pain Stated Complaint: LT SIDE PAIN Time Seen by Provider: 09/09/19 11:19 Source of Information: Reports: Patient, Family (), RN Notes Reviewed History Limitations: Reports: No Limitations - History of Present Illness INITIAL COMMENTS - FREE TEXT/NARRATIVE: Patient is an 84-year-old male who presents to the ED for evaluation of his left flank pain. Patient notes that this started roughly 3 days ago, but does seem to be more painful today. He states that the pain did start in his left flank, does seem to radiate down towards his left groin. He states this is a very sharp pain in nature, worsens if he bends over, is better if he sits still and does not move. Patient denies any numbness or tingling, or any dysuria, blood in the urine, or other urinary issues like incontinence. He has not had any bowel issues. He denies saddle anesthesia. Patient states he does have a history of kidney stones, but is been so long since he is had 1 of these he cannot remember if this seems like the same pain. notes that the patient did have a recent right knee replacement in May, and that he seems to still favor the left side, so she was worried about that aspect. Otherwise everything else went well with the right knee replacement. Patient did not take any sort of pain medications for this this morning. He denies any other sick-like symptoms, fever/chills, chest pain/shortness of breath. Patient's primary care provider is Dr. Neely, and Dr. Fernandez performed the knee surgery. Left Flank Pain Score (Numeric/FACES): 8 - Related Data Allergies Allergy/AdvReac Type Severity Reaction Status Date / Time codeine Allergy Severe Rash Verified 09/09/19 11:15 Home Meds: Home Meds Omeprazole 20 mg PO DAILY 05/21/15 [History] Simvastatin [Zocor] 40 mg PO DAILY 05/21/15 [History] Tamsulosin [Flomax] 0.4 mg PO DAILY 04/29/18 [History] Allopurinol [Zyloprim] 100 mg PO DAILY 06/14/19 [History] Alogliptin Benzoate [Alogliptin] 12.5 mg PO DAILY 06/14/19 [History] Cholecalciferol (Vitamin D3) [Vitamin D3] 5,000 unit PO DAILY 06/14/19 [History] lisinopriL [Zestril] 5 mg PO DAILY 06/14/19 [History] metFORMIN [Glucophage] 850 mg PO DAILY 06/14/19 [History] Metoprolol Succinate [Toprol XL 50mg] 25 mg PO DAILY 06/15/19 [History] Aspirin [Children's Aspirin] 81 mg PO DAILY 09/09/19 [History] Orphenadrine [Norflex] 100 mg PO BID PRN #20 tab 09/09/19 [Rx] predniSONE 20 mg PO ASDIRECTED #15 tab 09/09/19 [Rx] Past Medical History HEENT History: Reports: Cataract, Retinal Detachment Other HEENT History: pharyngitis, detached retina Cardiovascular History: Reports: CAD, High Cholesterol, Hypertension Respiratory History: Reports: SOB Other Respiratory History: reports occassional SOB with activity Gastrointestinal History: Reports: Bowel Obstruction, GERD Other Gastrointestinal History: 2013 - chronic constipation due to narcotics Genitourinary History: Reports: BPH, Renal Calculus, Other (See Below) Other Genitourinary History: hyperurcemia 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 Musculoskeletal History: Reports: Back Pain, Chronic, Fracture, Osteoarthritis Other Musculoskeletal History: left fibula fracture Neurological History: Reports: None Psychiatric History: Reports: None Endocrine/Metabolic History: Reports: Diabetes, Type II, Obesity/BMI 30+, Vitamin D Deficiency Hematologic History: Reports: None Immunologic History: Reports: None Oncologic (Cancer) History: 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, Squamous Cell Carcinoma Other Dermatologic History: atopic dermatitis - Infectious Disease History Infectious Disease History: Reports: Other (See Below) Other Infectious Disease History: Staph, non MRSA - Past Surgical History Head Surgeries/Procedures: Reports: None HEENT Surgical History: Reports: Cataract Surgery, Detached Retina, Oral Surgery Cardiovascular Surgical History: Reports: None Respiratory Surgical History: Reports: None GI Surgical History: Reports: Appendectomy, Cholecystectomy, Colonoscopy, EGD Male Surgical History: Reports: Circumcision Endocrine Surgical History: Reports: None Neurological Surgical History: Reports: Discectomy, Lumbar Spine Musculoskeletal Surgical History: Reports: Knee Replacement, ORIF, Shoulder Surgery, Other (See Below) Social & Family History - Family History Family Medical History: Noncontributory Cardiac: Reports: Heart Failure Endocrine/Metabolic: Reports: Diabetes, type II Oncologic: Reports: Colon - Tobacco Use Smoking Status *Q: Never Smoker - Caffeine Use Caffeine Use: Reports: Coffee - Recreational Drug Use Recreational Drug Use: No - Living Situation & Occupation Living situation: Reports: , with Spouse Occupation: Retired ED ROS GENERAL - Review of Systems Review Of Systems: Comprehensive ROS is negative, except as noted in HPI. ED EXAM,LOWER BACK PAIN/INJURY - Physical Exam Exam: See Below Exam Limited By: No Limitations General Appearance: Alert, WD/WN, No Apparent Distress Neck: Normal Inspection Respiratory/Chest: No Respiratory Distress, Lungs Clear, Normal Breath Sounds, No Accessory Muscle Use, Chest Non-Tender Cardiovascular: Normal Peripheral Pulses, Regular Rate, Rhythm, No Murmur GI/Abdominal: Normal Bowel Sounds, Soft, Non-Tender, No Distention, No Mass Extremities: Normal Inspection, Normal Capillary Refill, Limited Range of Motion (of left leg d/t pain, straight leg raise is positive on the left side) Neurological: Alert, Normal Mood/Affect, Normal Dorsiflexion, Normal Plantar Flexion, No Motor/Sensory Deficits, Oriented x 3, Straight Leg Raise (L). No: Saddle Anesthesia Psychiatric: Normal Affect, Normal Mood Skin Exam: Warm, Dry, Intact, Normal Color Course - Vital Signs Last Recorded V/S: Last Vital Signs Temp 97.2 F 09/09/19 11:11 Pulse 65 09/09/19 11:11 Resp 16 09/09/19 11:11 BP 133/54 L 09/09/19 11:11 Pulse Ox 94 L 09/09/19 11:11 - Orders/Labs/Meds Orders: Active Orders 24 hr Category Date Time Status Peripheral IV Care [RC] . DIRECTED Care 09/09/19 12:29 Ordered Strain Urine [RC] ASDIRECTED Care 09/09/19 13:41 Ordered Sodium Chloride 0.9% [Saline Flush] Med 09/09/19 12:29 Active 10 ml FLUSH ASDIRECTED PRN Peripheral IV Insertion Adult [OM.PC] Stat Oth 09/09/19 12:29 Ordered Medication Orders Sodium Chloride (Saline Flush) 10 ml FLUSH ASDIRECTED PRN PRN Reason: Keep Vein Open Labs: Laboratory Tests 09/09/19 Range/Units 12:45 Urine Color Light yellow (Yellow) Urine Appearance Clear (Clear) Urine pH 6.0 (5.0-8.0) Ur Specific [place] 1.015 (1.005-1.030) Urine Protein Negative (Negative) Urine Glucose (UA) Negative (Negative) Urine Ketones Negative (Negative) Urine Occult Blood Negative (Negative) Urine Nitrite Negative (Negative) Urine Bilirubin Negative (Negative) Urine Urobilinogen 0.2 (0.2-1.0) Ur Leukocyte Esterase Negative (Negative) Urine RBC Not seen (0-5) /hpf Urine WBC Not seen (0-5) /hpf Ur Squamous Epith Cells Not seen (0-5) /hpf Urine Bacteria Rare (FEW) /hpf Urine Mucus Not seen (FEW) /hpf Meds: Medications Generic Name Dose Route Start Last Admin Trade Name Freq PRN Reason Stop Dose Admin Sodium Chloride 10 ml 09/09/19 12:29 Saline Flush FLUSH ASDIRECTED PRN Keep Vein Open Discontinued Medications Generic Name Dose Route Start Last Admin Trade Name Freq PRN Reason Stop Dose Admin Sodium Chloride 1,000 mls @ 999 mls/hr 09/09/19 12:29 Normal Saline IV 09/09/19 13:29 ONETIME ONE Ketorolac Tromethamine 60 mg 09/09/19 11:54 Toradol IM 09/09/19 11:55 ONETIME ONE Ketorolac Tromethamine 30 mg 09/09/19 12:29 Toradol IVPUSH 09/09/19 12:30 ONETIME ONE Ketorolac Tromethamine 60 mg 09/09/19 13:41 09/09/19 14:00 Toradol IM 09/09/19 13:42 60 mg ONETIME ONE Administration Orphenadrine Citrate 100 mg 09/09/19 13:41 09/09/19 14:03 Norflex PO 09/09/19 13:42 100 mg ONETIME ONE Administration Tamsulosin HCl 0.4 mg 09/09/19 13:41 09/09/19 14:03 Flomax PO 09/09/19 13:42 0.4 mg ONETIME ONE Administration - Re-Assessments/Exams Free Text/Narrative Re-Assessment/Exam: 09/09/19 11:57 Patient presents to the ED for his left flank pain/left back pain. Although his straight leg raise is positive and it suspicious for sciatic component in nature. He does have a history of kidney stones, I have ordered a UA and abdomen pelvis CT to rule out a kidney stone this time. I did also order a 60 mg IM injection of Toradol for pain relief to see if this helps. 09/09/19 12:[address] was [address] to [address], so did not get the IM Toradol. CT has been done and read as a 4.7 mm distal right ureteral stone near the UVJ which causes no significant proximal hydronephrosis. There is an anterior abdominal wall hernia which is seen containing loops of small bowel with no dilatation. No other acute abnormalities were appreciated on the CT. At this point in time will have an IV be placed, give the patient a IV dose of Toradol to see if this does not help relieve some of his pain, along with IV fluids. Patient already takes Flomax at home so he does not need a repeat dose for today's purposes. Patient will likely be sent home with pain medications and general recommendations. Also find it likely that the patient is suffering from sciatica on his left side due to his physical exam. 09/09/19 13:20 His urinalysis demonstrates no blood in his urine, which is not typically normal for kidney stone diagnosis. The area in question could be calcification in nature versus kidney stone? Nonetheless as stated above, pain is on his left side not the right, I will treat him more for sciatic type pain versus kidney stone. He will be directed to follow-up with his regular care provider if things are not getting much better by Thursday. 09/09/19 13:42 Nurse made it aware to me that she is not able to get the IV as he is not gotten any sort of medications. I have changed back the Toradol to IM injection , and I will provide the patient with a tablet of Norflex and also a tablet of Flomax, as he states he does not currently take Flomax at home. Departure - Departure Time of Disposition: 14:08 Disposition: Home, Self-Care 01 Condition: Good Clinical Impression: Kidney stone on right side, Muscle spasm Low back pain Qualifiers: Chronicity: acute Back pain laterality: left Sciatica presence: with sciatica Sciatica laterality: sciatica of left side Qualified Code(s): M54.42 - Lumbago with sciatica, left side - Discharge Information *PRESCRIPTION DRUG MONITORING PROGRAM REVIEWED*: No *COPY OF PRESCRIPTION DRUG MONITORING REPORT IN PATIENT BRENNEN: No Prescriptions: Orphenadrine [Norflex] 100 mg PO BID PRN #20 tab PRN Reason: Spasms predniSONE 20 mg PO ASDIRECTED #15 tab Instructions: Dietary Guidelines to Help Prevent Kidney Stones, Muscle Cramps and Spasms, [id number] Referrals: Damon Sorto MD [Primary Care Provider] - Forms: ED Department Discharge Additional Instructions: You were evaluated in the ER today for your left flank pain. A CT was done at this ER visit, this demonstrated a 4.7mm stone at the UVJ on the right side. You have been given a strainer, please use every time you use the bathroom to make sure that the kidney stone has passed. This stone should pass in a short amount of time. Recommend that you increase your oral fluid intake to try to help the stone pass. The pain you are having on the left side, is more likely due to sciatica in nature. Which is an inflammation of the sciatic nerve. You have been given a prescription for prednisone, and a muscle relaxer called Norflex, please take these medications as directed for further pain relief. If your pain is not much better in a week's time, you may need to follow up with your primary care physician, for a possible urology referral regarding removal of the kidney stone, but at 4.7mm this will LIKELY pass on it's own without otherintervention. Please return to the ED if your symptoms change or worsen. Sepsis Event Note (ED) - Evaluation Sepsis Screening Result: No Definite Risk - Focused Exam Vital Signs: Vital Signs Temp Pulse Resp BP Pulse Ox 09/09/19 11:11 97.2 F 65 16 133/54 L 94 L - My Orders Last 24 Hours: My Active Orders 09/09/19 12:29 Peripheral IV Care [RC] . DIRECTED Sodium Chloride 0.9% [Saline Flush] 10 ml FLUSH ASDIRECTED PRN Peripheral IV Insertion Adult [OM.PC] Stat 09/09/19 13:41 Strain Urine [RC] ASDIRECTED - Assessment/Plan Last 24 Hours: My Active Orders 09/09/19 12:29 Peripheral IV Care [RC] . DIRECTED Sodium Chloride 0.9% [Saline Flush] 10 ml FLUSH ASDIRECTED PRN Peripheral IV Insertion Adult [OM.PC] Stat 09/09/19 13:41 Strain Urine [RC] ASDIRECTED
--- NOTE | 2019-09-09 12:21 | CT ---
CT abdomen and pelvis Technique: Multiple axial sections were obtained from above the dome of the diaphragm inferiorly through the pubic symphysis. Intravenous and oral contrast not utilized. Study has been performed as a ureteral stone protocol. Findings: Kidneys show no abnormal calcifications. Calcification appears to be present within the distal right ureter which causes no significant proximal hydronephrosis. This calcification measures approximately 4.7 mm in greatest dimension. No additional ureteral calculi is seen on the right or left sides. Other findings: Diaphragmatic calcifications are seen. 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 Noncontrast appearance of the liver shows no focal parenchymal abnormality. Spleen shows no focal abnormality. Adrenal glands show no nodule. Pancreas is within normal limits. Aorta shows atherosclerotic calcification with no aneurysm. Atherosclerotic calcification continues into the iliac vessels. Anterior abdominal wall hernia seen containing loops of small bowel which show no dilatation. No pelvic mass or adenopathy is seen. Prostate gland is mildly enlarged. Diverticuli are seen within the sigmoid colon and descending colon without diverticulitis. Mild increased stool is seen throughout the colon. Bone window settings were reviewed shows scattered degenerative change throughout the spine. No acute osseous finding is seen. Impression: 1. 4.7 mm distal right ureteral stone near the UVJ which causes no significant proximal hydronephrosis. 2. Other findings as described above which are nonacute. Diagnostic code #3 This report was dictated in MDT
[2019-09-09] MEDS ORDERED: Sodium Chloride 0.9% 10 ML Syringe FLUSH PRN (12:29)
[2019-09-09] MEDS ORDERED: Ketorolac 30 MG/ML SDV IVPUSH ONE (12:29)
[2019-09-09] MEDS ORDERED: Sodium Chloride 0.9% 1,000 ML IV ONE (12:29)
[2019-09-09] MEDS ORDERED: Tamsulosin 0.4 MG Cap.ER PO ONE (13:41)
[2019-09-09] MEDS ORDERED: Orphenadrine 100 MG Tab.ER PO ONE (13:41)
== END 2019-09-09 14:30 | disposition home or self-care (01) ==
LOC: JD.ED 10:58
DX: N20.2 Calculus of kidney with calculus of ureter (principal); M54.42 Lumbago with sciatica, left side; I25.10 Atherosclerotic heart disease of native coronary artery without angina pectoris; E78.00 Pure hypercholesterolemia, unspecified; I10 Essential (primary) hypertension; K21.9 Gastro-esophageal reflux disease without esophagitis; M19.90 Unspecified osteoarthritis, unspecified site; E11.9 Type 2 diabetes mellitus without complications; Z79.84 Long term (current) use of oral hypoglycemic drugs; Z79.82 Long term (current) use of aspirin; E66.9 Obesity, unspecified; Z68.27 Body mass index [BMI] 27.0-27.9, adult; Z88.5 Allergy status to narcotic agent
CPT/HCPCS: 74176; 74176-26; 81001; 96372; 99284; 99284-25; A9270-GY; J1885

== ENCOUNTER 2019-09-10 12:15 | Emergency (ER) | payer MEDICARE, BC ==
[2019-09-10 12:40] VITALS: BP 136/69; PULSE 73
[2019-09-10] MEDS ORDERED: Acetaminophen/HYDROcodone 325-10 MG Tab PO ONE (13:00)
--- NOTE | 2019-09-10 13:07 | EDM.PDOC ---
ED HPI GENERAL MEDICAL PROBLEM - General Chief Complaint: Back Pain or Injury Stated Complaint: LT SIDE PAIN GETTING WORSE Time Seen by Provider: 09/10/19 12:43 Source of Information: Reports: Patient, Family (daughter), Old Records (visit from yesterday), RN Notes Reviewed History Limitations: Reports: No Limitations - History of Present Illness INITIAL COMMENTS - FREE TEXT/NARRATIVE: Patient is an 84-year-old male who presents to the ED for evaluation of his left lower back/side pain, that states has worsened quite a bit since yesterday. Patient was evaluated yesterday here by myself in the ER, was found to have a 4.7 mm kidney stone on the right side, and was felt to have some sciatic dysfunction on the left side. He was sent home with a prescription for Norflex and prednisone, and was given 1 shot of Toradol yesterday, he states when he left the ER, he felt pretty good, all throughout the night, he went out in water to his garden last night, but this morning states that it is too painful he could not even get out of bed. He did take his dose of prednisone last night, and again this morning with Norflex. Patient states even trying to walk a little bit is extremely painful. He says he gets sharp stabbing pain in the left side like he was getting before. Patient denies any numbness or tingling down the legs, he denies any other sick-like symptoms, fever/chills, cough/shortness of breath, nausea/vomiting/diarrhea, or any dysuria, retention or incontinence. Left Back Pain Score (Numeric/FACES): 10 - Related Data Allergies Allergy/AdvReac Type Severity Reaction Status Date / Time codeine Allergy Severe Rash Verified 09/10/19 12:40 Home Meds: Home Meds Omeprazole 20 mg PO DAILY 05/21/15 [History] Simvastatin [Zocor] 40 mg PO DAILY 05/21/15 [History] Tamsulosin [Flomax] 0.4 mg PO DAILY 04/29/18 [History] Allopurinol [Zyloprim] 100 mg PO DAILY 06/14/19 [History] Alogliptin Benzoate [Alogliptin] 12.5 mg PO DAILY 06/14/19 [History] Cholecalciferol (Vitamin D3) [Vitamin D3] 5,000 unit PO DAILY 06/14/19 [History] lisinopriL [Zestril] 5 mg PO DAILY 06/14/19 [History] metFORMIN [Glucophage] 850 mg PO DAILY 06/14/19 [History] Metoprolol Succinate [Toprol XL 50mg] 25 mg PO DAILY 06/15/19 [History] Aspirin [Children's Aspirin] 81 mg PO DAILY 09/09/19 [History] Orphenadrine [Norflex] 100 mg PO BID PRN #20 tab 09/09/19 [Rx] predniSONE 20 mg PO ASDIRECTED #15 tab 09/09/19 [Rx] Hydrocodone/Acetaminophen [Hydrocodone-Acetamin 5-325 mg] 1 each PO Q6H #20 tablet 09/10/19 [Rx] Past Medical History HEENT History: Reports: Cataract, Retinal Detachment Other HEENT History: pharyngitis, detached retina Cardiovascular History: Reports: CAD, High Cholesterol, Hypertension Respiratory History: Reports: SOB Other Respiratory History: reports occassional SOB with activity Gastrointestinal History: Reports: Bowel Obstruction, GERD Other Gastrointestinal History: 2013 - chronic constipation due to narcotics Genitourinary History: Reports: BPH, Renal Calculus, Other (See Below) Other Genitourinary History: hyperurcemia Musculoskeletal History: Reports: Back Pain, Chronic, Fracture, Osteoarthritis Other Musculoskeletal History: left fibula fracture Endocrine/Metabolic History: Reports: Diabetes, Type II, Obesity/BMI 30+, Vitamin D Deficiency Oncologic (Cancer) History: 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, Squamous Cell Carcinoma Dermatologic History: Reports: Other (See Below) Other Dermatologic History: atopic dermatitis - Infectious Disease History Infectious Disease History: Reports: Other (See Below) Other Infectious Disease History: Staph, non MRSA - Past Surgical History HEENT Surgical History: Reports: Cataract Surgery, Detached Retina, Oral Surgery GI Surgical History: Reports: Appendectomy, Cholecystectomy, Colonoscopy, EGD Male Surgical History: Reports: Circumcision Neurological Surgical History: Reports: Discectomy, Lumbar Spine Musculoskeletal Surgical History: Reports: Knee Replacement, ORIF, Shoulder Surgery, Other (See Below) Social & Family History - Family History Family Medical History: Noncontributory Cardiac: Reports: Heart Failure Endocrine/Metabolic: Reports: Diabetes, type II Oncologic: Reports: Colon - Tobacco Use Smoking Status *Q: Never Smoker - Caffeine Use Caffeine Use: Reports: None - Recreational Drug Use Recreational Drug Use: No - Living Situation & Occupation Living situation: Reports: , with Spouse Occupation: Retired ED ROS GENERAL - Review of Systems Review Of Systems: Comprehensive ROS is negative, except as noted in HPI. ED EXAM,LOWER BACK PAIN/INJURY - Physical Exam Exam: See Below Exam Limited By: No Limitations General Appearance: Alert, WD/WN, No Apparent Distress Respiratory/Chest: No Respiratory Distress, Lungs Clear, Normal Breath Sounds, No Accessory Muscle Use, Chest Non-Tender Cardiovascular: Normal Peripheral Pulses, Regular Rate, Rhythm, No Murmur GI/Abdominal: Normal Bowel Sounds, Soft, Non-Tender, No Distention, No Mass Back Exam: Normal Inspection, Decreased Range of Motion Extremities: Normal Inspection, Normal Capillary Refill, Limited Range of Motion (of left leg d/t pain) Neurological: Alert, Normal Mood/Affect, Normal Dorsiflexion, Normal Plantar Flexion, No Motor/Sensory Deficits, Straight Leg Raise (L) (again positive at today's visit), Difficulty Walking (d/t pain in left hip/back). No: Saddle Anesthesia Psychiatric: Normal Affect, Normal Mood Skin Exam: Warm, Dry, Intact, Normal Color, No Rash Course - Vital Signs Last Recorded V/S: Last Vital Signs Temp 98.7 F 09/10/19 12:38 Pulse 73 09/10/19 12:38 Resp 16 09/10/19 12:38 BP 136/69 09/10/19 12:38 Pulse Ox 94 L 09/10/19 12:38 - Orders/Labs/Meds Meds: Medications Discontinued Medications Generic Name Dose Route Start Last Admin Trade Name Cidni PRN Reason Stop Dose Admin Hydrocodone Bitart/Acetaminophen 1 tab 09/10/19 13:00 09/10/19 13:22 [place] 325-10 Mg PO 09/10/19 13:01 1 tab ONETIME ONE Administration - Re-Assessments/Exams Free Text/Narrative Re-Assessment/Exam: 09/10/19 13:05 Patient presents to the ED for evaluation of his ongoing left lower back/hip pain. As he was started on prednisone yesterday, I do not want to put him on more NSAIDs, to increase his risk of a GI bleed. He will be given 1 tablet of hydrocodone/acetaminophen 10/325 in the ER to see if this helps his pain, and will likely get a few tablets of this for the next few days to try to help alleviate some of his pain. He will be directed to follow-up with Dr. Neely sometime this week for reevaluation and to make sure that his symptoms are getting better as expected. Patient and daughter are okay with this plan at this time. 09/10/19 14:07 Patient was up and ambulated to the bathroom 10 to 15 minutes ago, he states that he still having quite a bit of pain, he was given the medication at 13:22, I will reassess in another 15 to 20 minutes, see if he is feeling much better. I do again not really want to give him more Toradol to help prevent the possibility of a GI bleed. 09/10/19 14:28 Patient was reassessed at bedside, and states that he has gotten pretty good pain relief at this time, and is ready to go home again. We will discharge him home with a prescription for hydrocodone/acetaminophen 5/325, and recommend that he take it pretty regularly for the next 24 hours, and to have him rechecked sometime this week to make sure things are getting better as expected. Departure - Departure Time of Disposition: 14:29 Disposition: Home, Self-Care 01 Condition: Good Clinical Impression: Lumbar back pain with radiculopathy affecting left lower extremity - Discharge Information *PRESCRIPTION DRUG MONITORING PROGRAM REVIEWED*: Yes *COPY OF PRESCRIPTION DRUG MONITORING REPORT IN PATIENT BRENNEN: No Prescriptions: Hydrocodone/Acetaminophen [Hydrocodone-Acetamin 5-325 mg] 1 each PO Q6H #20 tablet Instructions: Pain Medicine Instructions, [id number] Referrals: Damon Sorto MD [Primary Care Provider] - Forms: ED Department Discharge Additional Instructions: You have been evaluated in the ED for your left lower back pain. Please use ice/heat as tolerated to the affected area. Please continue to take the prednisone as previously prescribed yesterday, and also the Norflex for muscle spasms in nature. You were given a prescription for a strong pain medication, hydrocodone/ acetaminophen 5/325 mg, please take 1 tab every 6 hours as needed for pain not relieved by Tylenol or ibuprofen alone. Please note this medication does contain Tylenol in it, so do not take more than 4000 mg in a 24-hour time span. These medications can be addictive, so please take as few as possible to achieve adequate pain control. These meds can also be quite constipating, recommend that you increase your oral fluid intake and take a stool softener like MiraLAX while taking these medications. Do not drive while taking this medication. Recommend you take the hydrocodone/acetaminophen every 6 hours for the next 24 hours while awake, to help relieve some of the pain that you are experiencing. Recommend you obtain an appointment with your primary care provider, sometime this week for re-evaluation and to make sure that your symptoms are getting better as expected. Please return to ED if your symptoms should change or worsen. Sepsis Event Note (ED) - Evaluation Sepsis Screening Result: No Definite Risk - Focused Exam Vital Signs: Vital Signs Temp Pulse Resp BP Pulse Ox 09/10/19 12:38 98.7 F 73 16 136/69 94 L
== END 2019-09-10 14:44 | disposition home or self-care (01) ==
LOC: JD.ED 12:15
DX: M54.16 Radiculopathy, lumbar region (principal); I10 Essential (primary) hypertension; I25.10 Atherosclerotic heart disease of native coronary artery without angina pectoris; E78.00 Pure hypercholesterolemia, unspecified; K21.9 Gastro-esophageal reflux disease without esophagitis; M19.90 Unspecified osteoarthritis, unspecified site; E11.9 Type 2 diabetes mellitus without complications; E66.9 Obesity, unspecified; Z88.5 Allergy status to narcotic agent; Z79.899 Other long term (current) drug therapy; Z79.82 Long term (current) use of aspirin
CPT/HCPCS: 99283; A9270

== ENCOUNTER 2021-03-12 07:59 | Inpatient (IN) | payer MEDICARE, BC ==
[2021-03-12] MEDS ORDERED: Sodium Chloride 0.9% 10 ML Syringe FLUSH PRN (08:23)
[2021-03-12] MEDS ORDERED: Ondansetron 4 MG/2 ML SDV IVPUSH ONE (08:23)
[2021-03-12] MEDS ORDERED: Sodium Chloride 0.9% 1,000 ML IV SCH ×2 (08:30→08:45)
[2021-03-12] MEDS ORDERED: HYDROmorphone 0.5 MG/0.5 ML Syringe IVPUSH ONE ×2 (08:45→11:17)
--- NOTE | 2021-03-12 09:42 | CR ---
Abdomen: Supine and upright views of the abdomen were obtained. Comparison: Prior abdominal x-ray 05/22/15. Scattered degenerative change is seen within the spine. Surgical clip is noted from prior cholecystectomy. Air-fluid levels are seen within the small bowel. No small bowel dilatation is seen and findings raise the question of possible enteritis. No colonic abnormality is seen on this study. Calcification is noted within the pelvis most likely representing phleboliths. No free air is seen. Impression: 1. Air-fluid levels within the small bowel. No small bowel dilatation is seen. Findings raise the possibility of enteritis. 2. Other findings as noted above which appear chronic. Diagnostic code #3
--- NOTE | 2021-03-12 09:52 | EDM.PDOC ---
ED HPI GENERAL MEDICAL PROBLEM - General Chief Complaint: Abdominal Pain Stated Complaint: nausea cramps Time Seen by Provider: 03/12/21 08:11 Source of Information: Reports: Patient History Limitations: Reports: No Limitations - History of Present Illness INITIAL COMMENTS - FREE TEXT/NARRATIVE: 86-year-old male presents the emergency department with complaints of left upper and lower quadrant abdominal pain with associated nausea and vomiting that started last evening. Patient states he has been up throughout the night vomiting. States he has been unable to keep any food or fluids down. Denies any diarrhea stools. States it has been approximately 2 days since his last bowel movement. States he has had his Covid vaccines as well as his booster. Denies any recent fever, chills, headache, cough or shortness of breath. He denies any urinary symptoms such as frequency, urgency, or burning. He states he has had kidney stones in the past however that does not feel similar to those episodes. Left Abdominal Pain Score (Numeric/FACES): 8 - Related Data Allergies Allergy/AdvReac Type Severity Reaction Status Date / Time codeine Allergy Severe Rash Verified 03/12/21 08:16 Home Meds: Home Meds Omeprazole 20 mg PO DAILY 05/21/15 [History] Simvastatin [Zocor] 40 mg PO DAILY 05/21/15 [History] Tamsulosin [Flomax] 0.4 mg PO DAILY 04/29/18 [History] Alogliptin Benzoate [Alogliptin] 12.5 mg PO DAILY 06/14/19 [History] Cholecalciferol (Vitamin D3) [Vitamin D3] 5,000 unit PO DAILY 06/14/19 [History] allopurinoL [Zyloprim] 100 mg PO DAILY 06/14/19 [History] lisinopriL [Zestril] 5 mg PO DAILY 06/14/19 [History] metFORMIN [Glucophage] 850 mg PO DAILY 06/14/19 [History] Metoprolol Succinate [Toprol XL 50mg] 25 mg PO DAILY 06/15/19 [History] Aspirin [Children's Aspirin] 81 mg PO DAILY 09/09/19 [History] Orphenadrine [Norflex] 100 mg PO BID PRN #20 tab 09/09/19 [Rx] predniSONE 20 mg PO ASDIRECTED #15 tab 09/09/19 [Rx] Hydrocodone/Acetaminophen [HYDROcodone-Acetaminophen 5-325 MG] 1 each PO Q6H #20 tablet 09/10/19 [Rx] Past Medical History HEENT History: Reports: Cataract, Retinal Detachment Other HEENT History: pharyngitis, detached retina Cardiovascular History: Reports: CAD, High Cholesterol, Hypertension Respiratory History: Reports: SOB Other Respiratory History: reports occassional SOB with activity Gastrointestinal History: Reports: Bowel Obstruction, GERD Other Gastrointestinal History: 2013 - chronic constipation due to narcotics Genitourinary History: Reports: BPH, Renal Calculus, Other (See Below) Other Genitourinary History: hyperurcemia Musculoskeletal History: Reports: Back Pain, Chronic, Fracture, Osteoarthritis Other Musculoskeletal History: left fibula fracture Neurological History: Reports: None Psychiatric History: Reports: None Endocrine/Metabolic History: Reports: Diabetes, Type II, Obesity/BMI 30+, Vitamin D Deficiency Hematologic History: Reports: None Immunologic History: Reports: None Oncologic (Cancer) History: 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, Squamous Cell Carcinoma Dermatologic History: Reports: Other (See Below) Other Dermatologic History: atopic dermatitis - Infectious Disease History Infectious Disease History: Reports: Other (See Below) Other Infectious Disease History: Staph, non MRSA - Past Surgical History Head Surgeries/Procedures: Reports: None HEENT Surgical History: Reports: Cataract Surgery, Detached Retina, Oral Surgery Cardiovascular Surgical History: Reports: None Respiratory Surgical History: Reports: None GI Surgical History: Reports: Appendectomy, Cholecystectomy, Colonoscopy, EGD Male Surgical History: Reports: Circumcision Endocrine Surgical History: Reports: None Neurological Surgical History: Reports: Discectomy, Lumbar Spine Musculoskeletal Surgical History: Reports: Knee Replacement, ORIF, Shoulder Surgery, Other (See Below) Other Musculoskeletal Surgeries/Procedures:: neck surgery, left ankle surgery with hardware Oncologic Surgical History: Reports: Other (See Below) Dermatological Surgical History: Reports: Other (See Below) Social & Family History - Family History Family Medical History: No Pertinent Family History Cardiac: Reports: Heart Failure Endocrine/Metabolic: Reports: Diabetes, type II Oncologic: Reports: Colon - Tobacco Use Tobacco Use Status *Q: Never Tobacco User - Caffeine Use Caffeine Use: Reports: None - Living Situation & Occupation Living situation: Reports: , with Spouse Occupation: Retired ED ROS GENERAL - Review of Systems Review Of Systems: Comprehensive ROS is negative, except as noted in HPI. ED EXAM, GI/ABD - Physical Exam Exam: See Below Exam Limited By: No Limitations General Appearance: Alert, WD/WN, Mild Distress Eyes: Bilateral: Normal Appearance Ears: Normal External Exam, Hearing Grossly Normal Nose: Normal Inspection Throat/Mouth: Normal Inspection, Normal Lips, Normal Voice, No Airway Compromise Head: Atraumatic Neck: Normal Inspection, Supple Respiratory/Chest: No Respiratory Distress, Lungs Clear, Normal Breath Sounds, No Accessory Muscle Use, Chest Non-Tender Cardiovascular: Normal Peripheral Pulses, Regular Rate, Rhythm, No Edema, No Murmur GI/Abdominal Exam: Normal Bowel Sounds, Soft, No Distention, Tender (Left upper and lower quadrant abdominal tenderness), Other (Patient does have a abdominal hernia) (Male) Exam: Deferred Rectal (Males) Exam: Deferred Back Exam: Normal Inspection Extremities: Normal Inspection, Normal Range of Motion, Non-Tender, No Pedal Edema, Normal Capillary Refill Neurological: Alert, Oriented, Normal Cognition Psychiatric: Normal Affect, Normal Mood Skin Exam: Warm, Dry, Intact, Normal Color, No Rash Lymphatic: No Adenopathy #1 Interpretation EKG Date: 03/12/21 Time: 09:03 Rhythm: NSR Rate (Beats/Min): 92 [place]: Normal P-Wave: Present QRS: Normal ST-T: Normal QT: Normal EKG Interpretation Comments: Per Dr. Gay interpretation: Normal sinus rhythm at 92 bpm; Q waves lead III; no ST changes Course - Vital Signs Text/Narrative:: Stated above, patient presents with nausea, vomiting and left-sided abdominal pain. Physical exam reveals an alert, elderly male who appears to be in mild distress. Patient is guarding his abdomen. He does have significant tenderness noted to the left upper and left lower quadrant. He also verbalizes right- sided abdominal discomfort however does not have any tenderness appreciated there. Remainder of physical exam is unremarkable. Will obtain lab studies as well as a flat and upright of the abdomen. We will of nursing staff place an IV and give the patient normal saline at 250 mL's per hour as he is likely dehydrated as well as Zofran and Dilaudid. Last Recorded V/S: Last Vital Signs Temp 97.5 F 03/12/21 08:12 Pulse 109 H 03/12/21 08:12 Resp 18 03/12/21 08:12 BP 123/80 03/12/21 08:12 Pulse Ox 91 L 03/12/21 08:12 - Orders/Labs/Meds Orders: Active Orders 24 hr Category Date Time Status Admission Status [Patient Status] [ADT] Routine ADT 03/12/21 12:06 Active Communication Order [RC] ASDIRECTED Care 03/12/21 08:23 Active Communication Order [RC] ASDIRECTED Care 03/12/21 08:23 Active Communication Order [RC] ASDIRECTED Care 03/12/21 08:23 Active Communication Order [RC] ASDIRECTED Care 03/12/21 08:23 Active Peripheral IV Care [RC] . DIRECTED Care 03/12/21 08:23 Active Sodium Chloride 0.9% [Normal Saline] 1,000 ml Med 03/12/21 08:45 Active IV ASDIRECTED Sodium Chloride 0.9% [Normal Saline] 100 ml Med 03/12/21 10:45 Active IV ASDIRECTED Sodium Chloride 0.9% [Saline Flush] Med 03/12/21 08:23 Active 10 ml FLUSH ASDIRECTED PRN Peripheral IV Insertion Adult [OM.PC] Stat Oth 03/12/21 08:23 Ordered Medication Orders Sodium Chloride (Normal Saline) 1,000 mls @ 250 mls/hr IV ASDIRECTED [facility] Last Admin: 03/12/21 09:09 Dose: 250 mls/hr Documented by: DAWSON Sodium Chloride (Normal Saline) 100 mls @ 60 mls/hr IV ASDIRECTED [facility] Last Admin: 03/12/21 10:38 Dose: 60 mls/hr Documented by: CYNTHIA Sodium Chloride (Sodium Chloride 0.9% 10 Ml Syringe) 10 ml FLUSH ASDIRECTED PRN PRN Reason: Keep Vein Open Last Admin: 03/12/21 09:10 Dose: 10 ml Documented by: DAWSON Labs: Laboratory Tests 03/12/21 03/12/21 03/12/21 Range/Units 08:35 08:35 09:00 WBC 15.45 H (4.23-9.07) K/mm3 RBC 5.28 (4.63-6.08) M/mm3 Hgb 15.3 D (13.7-17.5) gm/dl Hct 46.9 (40.1-51.0) % MCV 88.8 (79.0-92.2) fl MCH 29.0 (25.7-32.2) pg MCHC 32.6 (32.2-35.5) g/dl RDW Std Deviation 44.3 H (35.1-43.9) fL Plt Count 245 (163-337) K/mm3 MPV 9.8 (9.4-12.3) fl Neut % (Auto) 92.0 H (34.0-67.9) % Lymph % (Auto) 2.5 L (21.8-53.1) % Dolores % (Auto) 5.0 L (5.3-12.2) % Eos % (Auto) 0.1 L (0.8-7.0) Baso % (Auto) 0.1 (0.1-1.2) % Neut # (Auto) 14.23 H (1.78-5.38) K/mm3 Lymph # (Auto) 0.39 L (1.32-3.57) K/mm3 [place] # (Auto) 0.77 (0.30-0.82) K/mm3 Eos # (Auto) 0.01 L (0.04-0.54) K/mm3 Baso # (Auto) 0.01 (0.01-0.08) K/mm3 Sodium 138 (136-145) mEq/L Potassium 4.6 (3.5-5.1) mEq/L Chloride 103 (98-107) mEq/L Carbon Dioxide 23 (21-32) mEq/L Anion Gap 16.6 H (5-15) BUN 33 H (7-18) mg/dL Creatinine 1.7 H (0.7-1.3) mg/dL Est Cr Clr Drug Dosing TNP Estimated GFR (MDRD) 38 (>60) mL/min BUN/Creatinine Ratio 19.4 H (14-18) Glucose 217 H (70-99) mg/dL Calcium 10.0 (8.5-10.1) mg/dL Magnesium 2.0 (1.8-2.4) mg/dL Total Bilirubin 0.5 (0.2-1.0) mg/dL AST 21 (15-37) U/L ALT 36 (16-63) U/L Alkaline Phosphatase 76 (46-116) U/L C-Reactive Protein <0.2 (<1.0) mg/dL Total Protein 7.9 (6.4-8.2) g/dl Albumin 3.8 (3.4-5.0) g/dl Globulin 4.1 gm/dL Albumin/Globulin Ratio 0.9 L (1-2) Lipase 80 (73-393) U/L Urine Color Dark yellow (Yellow) Urine Appearance Clear (Clear) Urine pH 5.0 (5.0-8.0) Ur Specific [place] > or = 1.030 (1.005-1.030) Urine Protein 2+ H (Negative) Urine Glucose (UA) Negative (Negative) Urine Ketones 1+ H (Negative) Urine Occult Blood Negative (Negative) Urine Nitrite Negative (Negative) Urine Bilirubin 2+ H (Negative) Urine Urobilinogen 1.0 (0.2-1.0) Ur Leukocyte Esterase Negative (Negative) U Hyaline Cast (Auto) 0-5 (0-5) /lpf Urine RBC 0-5 (0-5) /hpf Urine WBC 0-5 (0-5) /hpf Ur Squamous Epith Cells 0-5 (0-5) /hpf Urine Bacteria Few (FEW) /hpf Urine Mucus Few (FEW) /hpf SARS-CoV-2 RNA (ANIA) (NEGATIVE) 03/12/21 Range/Units 11:15 WBC (4.23-9.07) K/mm3 RBC (4.63-6.08) M/mm3 Hgb (13.7-17.5) gm/dl Hct (40.1-51.0) % MCV (79.0-92.2) fl MCH (25.7-32.2) pg MCHC (32.2-35.5) g/dl RDW Std Deviation (35.1-43.9) fL Plt Count (163-337) K/mm3 MPV (9.4-12.3) fl Neut % (Auto) (34.0-67.9) % Lymph % (Auto) (21.8-53.1) % [place] % (Auto) (5.3-12.2) % Eos % (Auto) (0.8-7.0) Baso % (Auto) (0.1-1.2) % Neut # (Auto) (1.78-5.38) K/mm3 Lymph # (Auto) (1.32-3.57) K/mm3 [place] # (Auto) (0.30-0.82) K/mm3 Eos # (Auto) (0.04-0.54) K/mm3 Baso # (Auto) (0.01-0.08) K/mm3 Sodium (136-145) mEq/L Potassium (3.5-5.1) mEq/L Chloride (98-107) mEq/L Carbon Dioxide (21-32) mEq/L Anion Gap (5-15) BUN (7-18) mg/dL Creatinine (0.7-1.3) mg/dL Est Cr Clr Drug Dosing Estimated GFR (MDRD) (>60) mL/min BUN/Creatinine Ratio (14-18) Glucose (70-99) mg/dL Calcium (8.5-10.1) mg/dL Magnesium (1.8-2.4) mg/dL Total Bilirubin (0.2-1.0) mg/dL AST (15-37) U/L ALT (16-63) U/L Alkaline Phosphatase (46-116) U/L C-Reactive Protein (<1.0) mg/dL Total Protein (6.4-8.2) g/dl Albumin (3.4-5.0) g/dl Globulin gm/dL Albumin/Globulin Ratio (1-2) Lipase (73-393) U/L Urine Color (Yellow) Urine Appearance (Clear) Urine pH (5.0-8.0) Ur Specific [place] (1.005-1.030) Urine Protein (Negative) Urine Glucose (UA) (Negative) Urine Ketones (Negative) Urine Occult Blood (Negative) Urine Nitrite (Negative) Urine Bilirubin (Negative) Urine Urobilinogen (0.2-1.0) Ur Leukocyte Esterase (Negative) U Hyaline Cast (Auto) (0-5) /lpf Urine RBC (0-5) /hpf Urine WBC (0-5) /hpf Ur Squamous Epith Cells (0-5) /hpf Urine Bacteria (FEW) /hpf Urine Mucus (FEW) /hpf SARS-CoV-2 RNA (ANIA) Negative (NEGATIVE) Meds: Medications Generic Name Dose Route Start Last Admin Trade Name Freq PRN Reason Stop Dose Admin Sodium Chloride 1,000 mls @ 250 mls/hr 03/12/21 08:45 03/12/21 09:09 Normal Saline IV 250 mls/hr ASDIRECTED LARRY Administration Sodium Chloride 100 mls @ 60 mls/hr 03/12/21 10:45 03/12/21 10:38 Normal Saline IV 60 mls/hr ASDIRECTED LARRY Administration Sodium Chloride 10 ml 03/12/21 08:23 03/12/21 09:10 Sodium Chloride 0.9% 10 Ml Syringe FLUSH 10 ml ASDIRECTED PRN Administration Keep Vein Open Discontinued Medications Generic Name Dose Route Start Last Admin Trade Name Cindi PRN Reason Stop Dose Admin Hydromorphone HCl 0.5 mg 03/12/21 08:45 03/12/21 09:09 Hydromorphone 0.5 Mg/0.5 Ml Syringe IVPUSH 03/12/21 08:46 0.5 mg ONETIME ONE Administration Hydromorphone HCl 0.5 mg 03/12/21 11:17 03/12/21 12:32 Hydromorphone 0.5 Mg/0.5 Ml Syringe IVPUSH 03/12/21 11:18 0.5 mg ONETIME ONE Administration Sodium Chloride 1,000 mls @ 999 mls/hr 03/12/21 08:30 Normal Saline IV 03/12/21 09:29 Q1H LARRY Iopamidol 100 ml 03/12/21 10:36 03/12/21 10:38 Iopamidol 612 Mg/Ml 100 Ml Bottle IVPUSH 03/12/21 10:37 100 ml ONETIME ONE Administration Ondansetron HCl 4 mg 03/12/21 08:23 03/12/21 09:09 Ondansetron 4 Mg/2 Ml Sdv IVPUSH 03/12/21 08:24 4 mg ONETIME ONE Administration Sodium Chloride 10 ml 03/12/21 10:36 03/12/21 10:38 Sodium Chloride 0.9% 10 Ml Syringe FLUSH 03/12/21 10:37 10 ml ONETIME ONE Administration - Re-Assessments/Exams Free Text/Narrative Re-Assessment/Exam: 03/12/21 09:54 Hematology reveals a WBC of 15.45, hemoglobin 15.3, hematocrit 46.9, platelet count 245 Chemistry reveals a sodium of 138, potassium 4.6, anion gap 16.6, BUN 33, creatinine 1.7, GFR 38, glucose 217, magnesium 2.0, total bilirubin 0.5, AST 21, ALT 36, C-reactive protein less than 0.2, lipase 80 Urinalysis reveals 2+ protein, 1+ ketone, 2+ bilirubin, nitrite negative, leukocyte Estrace is negative 03/12/21 09:57 Radiologist impression supine and upright views of the abdomen: 1. Air-fluid levels within the small bowel. No small bowel dilation is seen. Findings raise the possibility of enteritis. 2. Other findings as noted above which appear chronic. 03/12/21 11:[address] of the abdomen and pelvis: Dilated small bowel loops are seen. There is a fat-containing anterior abdominal wall hernia being seen. There is a small bowel that extends into the hernia with less prominent small bowel loops being seen distal to this hernia. Uncertain if the small bowel dilation is due to adhesions within the hernia. There is also nondilated small bowel loops seen within this hernia which is nondilated before and after this lesion. Visualized lung bases show fibrosis. Pleural calcification is seen along the liver. Moderate sized hiatal hernia is noted. Liver contains no focal parenchymal abnormality. Surgical loops are seen from prior cholecystectomy. Spleen size is normal. Adrenal glands show no nodule. Pancreas this is within normal limits Kidney shows symmetric contrast enhancement. Parapelvic cysts are seen within both kidneys. Distal right ureter shows a stone measuring about 6 mm. Uncertain if this is due to chronic calcification in his seen on prior study whether this represents a new calcification. This causes no significant dilatio n of the right ureter. Abdominal aorta shows atherosclerotic calcification with slight ectasia. No aneurysm is seen. No retroperitoneal adenopathy is noted. Within the pelvis there is diverticuli and being seen within the sigmoid and descending colon. No findings of diverticulitis are seen. Delayed images shows contrast excretion from both kidneys into nondilated ureters with contrast seen within the bladder. Impression: 1. Mild small bowel obstruction as described above. 2. Calcification within the distal right ureter either chronic or representing a new calculus. This causes no significant dilation of the right ureter. 3. Other incidental findings as described above. 03/12/21 11:09 I do feel this patient needs to be admitted. I have phoned the surgeon on-call, Dr. Lopez. His nurse answered the phone and states that he is in the middle of the procedure and she will have him call me back as soon as he is finished. Departure - Departure Time of Disposition: 12:00 Disposition: Admitted As Inpatient 65 Condition: Fair Clinical Impression: Small bowel obstruction - Discharge Information Sepsis Event Note (ED) - Evaluation Sepsis Screening Result: No Definite Risk - Focused Exam Vital Signs: Vital Signs Temp Pulse Resp BP Pulse Ox 03/12/21 08:12 97.5 F 109 H 18 123/80 91 L - My Orders Last 24 Hours: My Active Orders 03/12/21 08:23 Communication Order [RC] ASDIRECTED Communication Order [RC] ASDIRECTED Communication Order [RC] ASDIRECTED Communication Order [RC] ASDIRECTED Peripheral IV Care [RC] . DIRECTED Sodium Chloride 0.9% [Saline Flush] 10 ml FLUSH ASDIRECTED PRN Peripheral IV Insertion Adult [OM.PC] Stat 03/12/21 08:45 Sodium Chloride 0.9% [Normal Saline] 1,000 ml IV ASDIRECTED 03/12/21 10:45 Sodium Chloride 0.9% [Normal Saline] 100 ml IV ASDIRECTED 03/12/21 12:06 Admission Status [Patient Status] [ADT] Routine - Assessment/Plan Last 24 Hours: My Active Orders 03/12/21 08:23 Communication Order [RC] ASDIRECTED Communication Order [RC] ASDIRECTED Communication Order [RC] ASDIRECTED Communication Order [RC] ASDIRECTED Peripheral IV Care [RC] . DIRECTED Sodium Chloride 0.9% [Saline Flush] 10 ml FLUSH ASDIRECTED PRN Peripheral IV Insertion Adult [OM.PC] Stat 03/12/21 08:45 Sodium Chloride 0.9% [Normal Saline] 1,000 ml IV ASDIRECTED 03/12/21 10:45 Sodium Chloride 0.9% [Normal Saline] 100 ml IV ASDIRECTED 03/12/21 12:06 Admission Status [Patient Status] [ADT] Routine
[2021-03-12] MEDS ORDERED: Iopamidol 612 MG/ML 100 ML Bottle IVPUSH ONE (10:36)
[2021-03-12] MEDS ORDERED: Sodium Chloride 0.9% 10 ML Syringe FLUSH ONE (10:36)
[2021-03-12] MEDS ORDERED: Sodium Chloride 0.9% 100 ML IV SCH (10:45)
--- NOTE | 2021-03-12 11:13 | CT ---
CT abdomen and pelvis Technique: Multiple axial sections were obtained from above the dome of the diaphragm inferiorly through the pubic symphysis. Intravenous contrast was utilized. Delayed images were obtained. Reconstructed coronal and sagittal images were also obtained. Comparison: Prior CT abdomen and pelvis study of 09/09/19. Findings: Dilated small bowel loops are seen. There is a fat-containing anterior abdominal wall hernia being seen. There is small bowel that extends into this hernia with less prominent small bowel loops being seen distal to this hernia. Uncertain if the small bowel dilatation is due to adhesions within this hernia. There is also a nondilated small bowel loop seen within this hernia which is nondilated before and after the hernia. Visualized lung bases show fibrosis. Pleural calcification is seen along the liver. Moderate sized hiatal hernia is noted. Liver contains no focal parenchymal abnormality. Surgical clips are seen from prior cholecystectomy. Spleen size is normal. Adrenal glands show no nodule. Pancreas is within normal limits. Kidneys show symmetric contrast enhancement. Parapelvic cysts are seen within both kidneys. Distal right ureter shows a stone measuring about 6 mm. Uncertain if this is due to a chronic calcification which is seen on prior study or whether it represents a new calcification. This causes no significant dilatation of the right ureter. Abdominal aorta shows atherosclerotic calcification with slight ectasia. No aneurysm is seen. No retroperitoneal adenopathy is noted. Within the pelvis there is diverticuli being seen within the sigmoid and descending colon. No findings of diverticulitis are seen. Delayed images show contrast excretion from both kidneys into nondilated ureters with contrast seen within the bladder. Impression: 1. Mild small bowel obstruction as described above. 2. Calcification within the distal right ureter either chronic or representing a new calculus. This causes no significant dilatation of the right ureter. 3. Other incidental findings as described above. Diagnostic code #3
[2021-03-12] MEDS ORDERED: HYDROmorphone 0.5 MG/0.5 ML Syringe IVPUSH PRN (14:21)
[2021-03-12] MEDS ORDERED: Metoclopramide 10 MG/2 ML SDV IVPUSH PRN (14:24)
[2021-03-12] MEDS: Sodium Chloride 0.9% 1,000 ML IV SCH ×2 (14:30→21:32)
--- NOTE | 2021-03-12 16:06 | PCM.EKG ---
#1 Interpretation EKG Date: 03/12/21 Time: 15:43 Rhythm: NSR P-Wave: Present QRS: Normal ST-T: Normal QT: Normal Comparison: NA - No Prior EKG EKG Interpretation Comments: NSR, low voltage precordial leads
--- NOTE | 2021-03-12 16:20 | PCM.HP.2 ---
H&P History of Present Illness - General Date of Service: 03/12/21 Admit Problem/Dx: Admission Diagnosis/Problem Admission Diagnosis/Problem Small bowel obstruction Source of Information: Patient History Limitations: Reports: No Limitations - History of Present Illness Initial Comments - Free Text/Narative: Mr. Willett is an 86 yo male who presents with two days of nausea, vomiting and obstipation. He was doing fine until Saturday 03/10 when he started to have nausea and vomiting. This intensified on Thursday where he vomited all night and presented to the ER in the morning. He has prior appendectomy in 1990 complicated by leakage and sepsis requiring exploratory laparotomy. He has never had SBO in the past. Last BM and flatus was Saturday 03/10. In the ER CT showed SBO with possible transition point at the area of abdominal hernia. Onset of Symptoms: Reports: Gradual Duration of Symptoms: Reports: Day(s): (2), Getting Worse Location: Reports: Abdomen Quality: Reports: Dull Severity: Moderate Improves with: Reports: None Worsens with: Reports: None Left Abdominal Pain Score (Numeric/FACES): 8 - Related Data Allergies/Adverse Reactions: Allergies Allergy/AdvReac Type Severity Reaction Status Date / Time codeine Allergy Severe Rash Verified 03/12/21 08:16 Home Medications: Home Meds Omeprazole 20 mg PO BEDTIME 05/21/15 [History] Simvastatin [Zocor] 40 mg PO BEDTIME 05/21/15 [History] Tamsulosin [Flomax] 0.4 mg PO DAILY 04/29/18 [History] Alogliptin Benzoate [Alogliptin] 12.5 mg PO DAILY 06/14/19 [History] Cholecalciferol (Vitamin D3) [Vitamin D3] 5,000 unit PO BEDTIME 06/14/19 [History] allopurinoL [Zyloprim] 100 mg PO DAILY 06/14/19 [History] lisinopriL [Zestril] 5 mg PO DAILY 06/14/19 [History] metFORMIN [Glucophage] 500 mg PO DAILY 06/14/19 [History] Metoprolol Succinate [Toprol XL 50mg] 25 mg PO DAILY 06/15/19 [History] Aspirin [Children's Aspirin] 81 mg PO DAILY 09/09/19 [History] Orphenadrine [Norflex] 100 mg PO BID PRN #20 tab 09/09/19 [Rx] predniSONE 20 mg PO ASDIRECTED #15 tab 09/09/19 [Rx] Hydrocodone/Acetaminophen [HYDROcodone-Acetaminophen 5-325 MG] 1 each PO Q6H #20 tablet 09/10/19 [Rx] Past Medical History HEENT History: Reports: Cataract, Retinal Detachment Other HEENT History: pharyngitis, detached retina Cardiovascular History: Reports: CAD, High Cholesterol, Hypertension Respiratory History: Reports: SOB Other Respiratory History: reports occassional SOB with activity Gastrointestinal History: Reports: Bowel Obstruction, GERD Other Gastrointestinal History: 2013 - chronic constipation due to narcotics Genitourinary History: Reports: BPH, Renal Calculus, Other (See Below) Other Genitourinary History: hyperurcemia Musculoskeletal History: Reports: Back Pain, Chronic, Fracture, Osteoarthritis Other Musculoskeletal History: left fibula fracture Neurological History: Reports: None Psychiatric History: Reports: None Endocrine/Metabolic History: Reports: Diabetes, Type II, Obesity/BMI 30+, Vitamin D Deficiency Hematologic History: Reports: None Immunologic History: Reports: None Oncologic (Cancer) History: 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, Squamous Cell Carcinoma Dermatologic History: Reports: Other (See Below) Other Dermatologic History: atopic dermatitis - Infectious Disease History Infectious Disease History: Reports: Other (See Below) Other Infectious Disease History: Staph, non MRSA - Past Surgical History Head Surgeries/Procedures: Reports: None HEENT Surgical History: Reports: Cataract Surgery, Detached Retina, Oral Surgery Cardiovascular Surgical History: Reports: None Respiratory Surgical History: Reports: None GI Surgical History: Reports: Appendectomy, Cholecystectomy, Colonoscopy, EGD Male Surgical History: Reports: Circumcision Endocrine Surgical History: Reports: None Neurological Surgical History: Reports: Discectomy, Lumbar Spine Musculoskeletal Surgical History: Reports: Knee Replacement, ORIF, Shoulder Surgery, Other (See Below) Other Musculoskeletal Surgeries/Procedures:: neck surgery, left ankle surgery with hardware, right knee replacement Oncologic Surgical History: Reports: Other (See Below) Dermatological Surgical History: Reports: Other (See Below) Social & Family History - Family History Family Medical History: No Pertinent Family History Cardiac: Reports: Heart Failure Endocrine/Metabolic: Reports: Diabetes, type II Oncologic: Reports: Colon - Tobacco Use Tobacco Use Status *Q: Former Tobacco User Used Tobacco, but Quit: Yes Month/Year Tobacco Last Used: 1979 Second Hand Smoke Exposure: No - Caffeine Use Caffeine Use: Reports: Coffee Caffeine Use Comment: 1 cup daily - Recreational Drug Use Recreational Drug Use: No - Living Situation & Occupation Living situation: Reports: , with Spouse Occupation: Retired H&P Review of Systems - Review of Systems: Review Of Systems: See Below General: Reports: No Symptoms HEENT: Reports: No Symptoms Pulmonary: Reports: No Symptoms Cardiovascular: Reports: No Symptoms Gastrointestinal: Reports: Abdominal Pain, Nausea, Vomiting Genitourinary: Reports: No Symptoms Musculoskeletal: Reports: No Symptoms Skin: Reports: No Symptoms Exam - Exam Exam: See Below - Vital Signs Vital Signs: Last Vital Signs Temp 97.9 F 03/12/21 15:42 Pulse 90 03/12/21 15:42 Resp 14 03/12/21 15:42 BP 140/79 03/12/21 15:42 Pulse Ox 94 L 03/12/21 15:42 Weight: 86.273 kg - Exam Quality Assessment: Supplemental Oxygen General: Alert, Oriented Lungs: Clear to Auscultation, Normal Respiratory Effort Cardiovascular: Regular Rate, Regular Rhythm, Normal S1, Normal S2 GI/Abdominal Exam: Soft, Distended, Tender (mildly. no rebound or guarding), Other (abdominal wall hernia is soft) - Patient Data Lab Results Last 24 hrs: Laboratory Results - last 24 hr 03/12/21 03/12/21 03/12/21 Range/Units 08:35 08:35 09:00 WBC 15.45 H (4.23-9.07) K/mm3 RBC 5.28 (4.63-6.08) M/mm3 Hgb 15.3 D (13.7-17.5) gm/dl Hct 46.9 (40.1-51.0) % MCV 88.8 (79.0-92.2) fl MCH 29.0 (25.7-32.2) pg MCHC 32.6 (32.2-35.5) g/dl RDW Std Deviation 44.3 H (35.1-43.9) fL Plt Count 245 (163-337) K/mm3 MPV 9.8 (9.4-12.3) fl Neut % (Auto) 92.0 H (34.0-67.9) % Lymph % (Auto) 2.5 L (21.8-53.1) % Creek % (Auto) 5.0 L (5.3-12.2) % Eos % (Auto) 0.1 L (0.8-7.0) Baso % (Auto) 0.1 (0.1-1.2) % Neut # (Auto) 14.23 H (1.78-5.38) K/mm3 Lymph # (Auto) 0.39 L (1.32-3.57) K/mm3 Creek # (Auto) 0.77 (0.30-0.82) K/mm3 Eos # (Auto) 0.01 L (0.04-0.54) K/mm3 Baso # (Auto) 0.01 (0.01-0.08) K/mm3 Sodium 138 (136-145) mEq/L Potassium 4.6 (3.5-5.1) mEq/L Chloride 103 (98-107) mEq/L Carbon Dioxide 23 (21-32) mEq/L Anion Gap 16.6 H (5-15) BUN 33 H (7-18) mg/dL Creatinine 1.7 H (0.7-1.3) mg/dL Est Cr Clr Drug Dosing TNP Estimated GFR (MDRD) 38 (>60) mL/min BUN/Creatinine Ratio 19.4 H (14-18) Glucose 217 H (70-99) mg/dL Calcium 10.0 (8.5-10.1) mg/dL Magnesium 2.0 (1.8-2.4) mg/dL Total Bilirubin 0.5 (0.2-1.0) mg/dL AST 21 (15-37) U/L ALT 36 (16-63) U/L Alkaline Phosphatase 76 (46-116) U/L C-Reactive Protein <0.2 (<1.0) mg/dL Total Protein 7.9 (6.4-8.2) g/dl Albumin 3.8 (3.4-5.0) g/dl Globulin 4.1 gm/dL Albumin/Globulin Ratio 0.9 L (1-2) Lipase 80 (73-393) U/L Urine Color Dark yellow (Yellow) Urine Appearance Clear (Clear) Urine pH 5.0 (5.0-8.0) Ur Specific [place] > or = 1.030 (1.005-1.030) Urine Protein 2+ H (Negative) Urine Glucose (UA) Negative (Negative) Urine Ketones 1+ H (Negative) Urine Occult Blood Negative (Negative) Urine Nitrite Negative (Negative) Urine Bilirubin 2+ H (Negative) Urine Urobilinogen 1.0 (0.2-1.0) Ur Leukocyte Esterase Negative (Negative) U Hyaline Cast (Auto) 0-5 (0-5) /lpf Urine RBC 0-5 (0-5) /hpf Urine WBC 0-5 (0-5) /hpf Ur Squamous Epith Cells 0-5 (0-5) /hpf Urine Bacteria Few (FEW) /hpf Urine Mucus Few (FEW) /hpf SARS-CoV-2 RNA (ANIA) (NEGATIVE) 03/12/21 Range/Units 11:15 WBC (4.23-9.07) K/mm3 RBC (4.63-6.08) M/mm3 Hgb (13.7-17.5) gm/dl Hct (40.1-51.0) % MCV (79.0-92.2) fl MCH (25.7-32.2) pg MCHC (32.2-35.5) g/dl RDW Std Deviation (35.1-43.9) fL Plt Count (163-337) K/mm3 MPV (9.4-12.3) fl Neut % (Auto) (34.0-67.9) % Lymph % (Auto) (21.8-53.1) % Creek % (Auto) (5.3-12.2) % Eos % (Auto) (0.8-7.0) Baso % (Auto) (0.1-1.2) % Neut # (Auto) (1.78-5.38) K/mm3 Lymph # (Auto) (1.32-3.57) K/mm3 Creek # (Auto) (0.30-0.82) K/mm3 Eos # (Auto) (0.04-0.54) K/mm3 Baso # (Auto) (0.01-0.08) K/mm3 Sodium (136-145) mEq/L Potassium (3.5-5.1) mEq/L Chloride (98-107) mEq/L Carbon Dioxide (21-32) mEq/L Anion Gap (5-15) BUN (7-18) mg/dL Creatinine (0.7-1.3) mg/dL Est Cr Clr Drug Dosing Estimated GFR (MDRD) (>60) mL/min BUN/Creatinine Ratio (14-18) Glucose (70-99) mg/dL Calcium (8.5-10.1) mg/dL Magnesium (1.8-2.4) mg/dL Total Bilirubin (0.2-1.0) mg/dL AST (15-37) U/L ALT (16-63) U/L Alkaline Phosphatase (46-116) U/L C-Reactive Protein (<1.0) mg/dL Total Protein (6.4-8.2) g/dl Albumin (3.4-5.0) g/dl Globulin gm/dL Albumin/Globulin Ratio (1-2) Lipase (73-393) U/L Urine Color (Yellow) Urine Appearance (Clear) Urine pH (5.0-8.0) Ur Specific [place] (1.005-1.030) Urine Protein (Negative) Urine Glucose (UA) (Negative) Urine Ketones (Negative) Urine Occult Blood (Negative) Urine Nitrite (Negative) Urine Bilirubin (Negative) Urine Urobilinogen (0.2-1.0) Ur Leukocyte Esterase (Negative) U Hyaline Cast (Auto) (0-5) /lpf Urine RBC (0-5) /hpf Urine WBC (0-5) /hpf Ur Squamous Epith Cells (0-5) /hpf Urine Bacteria (FEW) /hpf Urine Mucus (FEW) /hpf SARS-CoV-2 RNA (ANIA) Negative (NEGATIVE) Result Diagrams: 03/12/21 08:35 03/12/21 08:35 Sepsis Event Note - Evaluation Sepsis Screening Result: No Definite Risk - Focused Exam Vital Signs: Vital Signs Temp Temp Pulse Pulse Resp BP BP 03/12/21 15:42 97.9 F 90 14 140/79 03/12/21 12:59 98.2 F 101 H 20 113/66 03/12/21 08:12 97.5 F 109 H 18 123/80 Pulse Ox 03/12/21 15:42 94 L 03/12/21 12:59 91 L 03/12/21 08:12 91 L Problem List Initiated/Reviewed/Updated: No Orders Last 24hrs: Active Orders 24 hr Category Date Time Status Admission Status [Patient Status] [ADT] Routine ADT 03/12/21 12:06 Active Communication Order [RC] ASDIRECTED Care 03/12/21 08:23 Active Communication Order [RC] ASDIRECTED Care 03/12/21 08:23 Active Communication Order [RC] ASDIRECTED Care 03/12/21 08:23 Active Communication Order [RC] ASDIRECTED Care 03/12/21 08:23 Active Gastrointestinal Tube Mgmt [RC] ASDIRECTED Care 03/12/21 16:11 Active Peripheral IV Care [RC] . DIRECTED Care 03/12/21 08:23 Active Up With Assistance [RC] BID Care 03/12/21 14:26 Active Nothing per Oral Now Diet [DIET] Diet 03/12/21 Dinner Active Chest 1V Frontal [CR] Stat Exams 03/12/21 16:11 Ordered LACTIC ACID [CHEM] DAILY Lab 03/12/21 16:13 Ordered LACTIC ACID [CHEM] DAILY Lab 03/13/21 16:13 Ordered LACTIC ACID [CHEM] DAILY Lab 03/14/21 16:13 Ordered TROPONIN I [CHEM] Stat Lab 03/12/21 16:13 Ordered HYDROmorphone [Dilaudid] Med 03/12/21 14:21 Active 0.5 mg IVPUSH Q4H PRN Metoclopramide [Reglan] Med 03/12/21 14:24 Active 5 mg IVPUSH Q6H PRN Sodium Chloride 0.9% [Normal Saline] 1,000 ml Med 03/12/21 14:30 Active IV ASDIRECTED Sodium Chloride 0.9% [Saline Flush] Med 03/12/21 08:23 Active 10 ml FLUSH ASDIRECTED PRN NG [Nasogastric Orogastric Tube Insertion] [OM.PC] Oth 03/12/21 16:11 Ordered Routine Peripheral IV Insertion Adult [OM.PC] Stat Oth 03/12/21 08:23 Ordered Code Status [Resuscitation Status] Routine Resus Stat 03/12/21 14:31 Ordered Medication Orders Hydromorphone HCl (Hydromorphone 0.5 Mg/0.5 Ml Syringe) 0.5 mg IVPUSH Q4H PRN PRN Reason: Pain (severe 7-10) Sodium Chloride (Normal Saline) 1,000 mls @ 125 mls/hr IV ASDIRECTED LARYR Last Admin: 03/12/21 14:30 Dose: 125 mls/hr Documented by: MATEO Metoclopramide HCl (Metoclopramide 10 Mg/2 Ml Sdv) 5 mg IVPUSH Q6H PRN PRN Reason: Nausea/Vomiting Sodium Chloride (Sodium Chloride 0.9% 10 Ml Syringe) 10 ml FLUSH ASDIRECTED PRN PRN Reason: Keep Vein Open Last Admin: 03/12/21 09:10 Dose: 10 ml Documented by: DAWSON Assessment/Plan Comment:: patient has SBO with possible transition point at the sight of the abdominal wall herniation, likely due to adhesions. SO far vitals are normal. We will a ttempt non-operative management for now Plan - IVF resuscitation - NGT, NPO, IVF -- bowel rest and close monitoring - He did complain of chest pressure this PM just before he vomited again. Obtained EKG which is normal, will get a set of troponins as well. Chest Xray after NGT is placed. - Diabetes management - sliding scale insulin - Mortality Measure Prognosis:: Good (no significant comorbid conditions except diabetes)
[2021-03-12] MEDS ORDERED: Ondansetron 4 MG/2 ML SDV IV PRN (16:26)
[2021-03-12] MEDS ORDERED: Sodium Chloride 0.9% 1,000 ML IV ONE (16:43)
--- NOTE | 2021-03-12 17:08 | CR ---
Chest: Portable view of the chest was obtained. Comparison: Prior chest x-ray of 05/26/19. Nasogastric tube is seen which is looped within the stomach. Slight atelectasis is seen within the right lung base along the minor fissure. Minimal atelectasis is seen within the left lung base. Lungs otherwise are clear. Heart size is felt to be within normal limits for portable technique. Tortuous thoracic aorta is seen. Surgical clips are seen from prior cholecystectomy. Impression: 1. Nasogastric tube is coiled within the stomach which is satisfactory. 2. Slight atelectasis along the right minor fissure. Minimal atelectasis within the left lung base. Diagnostic code #2
[2021-03-12] MEDS: Insulin Lispro 100 Unit/ML 3 ML KwikPen SUBCUT SCH ×2 (18:55→23:03)
[2021-03-12] MEDS: Pantoprazole 40 MG Vial IV SCH (21:15)
[2021-03-13] MEDS: Sodium Chloride 0.9% 1,000 ML IV SCH ×2 (05:59→11:16)
[2021-03-13] MEDS: Insulin Lispro 100 Unit/ML 3 ML KwikPen SUBCUT SCH ×3 (06:30→17:12)
--- NOTE | 2021-03-13 07:25 | PCM.PN ---
- General Info Date of Service: 03/13/21 Admission Dx/Problem (Free Text): Admission Diagnosis/Problem Admission Diagnosis/Problem Small bowel obstruction Subjective Update: Patient vomited overnight due to clogged NGT but now feeling better. He gets to the bathroom. Chest pressure resolved after NGT placed yesterday Functional Status: Reports: Pain Controlled, Ambulating, Urinating - Review of Systems General: Reports: No Symptoms HEENT: Reports: No Symptoms Pulmonary: Reports: No Symptoms Cardiovascular: Reports: No Symptoms Gastrointestinal: Reports: Abdominal Pain, Nausea, Vomiting Genitourinary: Reports: No Symptoms Musculoskeletal: Reports: No Symptoms Skin: Reports: No Symptoms Neurological: Reports: No Symptoms - Patient Data Vitals - Most Recent: Last Vital Signs Temp 97.3 F 03/13/21 03:46 Pulse 71 03/13/21 03:46 Resp 16 03/13/21 03:46 BP 109/64 03/13/21 03:46 Pulse Ox 96 03/13/21 03:46 Weight - Most Recent: 86.273 kg I&O - Last 24 Hours: Intake & Output 03/12/21 03/13/21 03/13/21 22:59 06:59 14:59 Intake Total 1523 1600 Output Total 950 1350 Balance 573 250 Lab Results Last 24 Hours: Laboratory Results - last 24 hr 03/12/21 03/12/21 03/12/21 Range/Units 08:35 08:35 09:00 WBC 15.45 H (4.23-9.07) K/mm3 RBC 5.28 (4.63-6.08) M/mm3 Hgb 15.3 D (13.7-17.5) gm/dl Hct 46.9 (40.1-51.0) % MCV 88.8 (79.0-92.2) fl MCH 29.0 (25.7-32.2) pg MCHC 32.6 (32.2-35.5) g/dl RDW Std Deviation 44.3 H (35.1-43.9) fL Plt Count 245 (163-337) K/mm3 MPV 9.8 (9.4-12.3) fl Neut % (Auto) 92.0 H (34.0-67.9) % Lymph % (Auto) 2.5 L (21.8-53.1) % [place] % (Auto) 5.0 L (5.3-12.2) % Eos % (Auto) 0.1 L (0.8-7.0) Baso % (Auto) 0.1 (0.1-1.2) % Neut # (Auto) 14.23 H (1.78-5.38) K/mm3 Lymph # (Auto) 0.39 L (1.32-3.57) K/mm3 [place] # (Auto) 0.77 (0.30-0.82) K/mm3 Eos # (Auto) 0.01 L (0.04-0.54) K/mm3 Baso # (Auto) 0.01 (0.01-0.08) K/mm3 Sodium 138 (136-145) mEq/L Potassium 4.6 (3.5-5.1) mEq/L Chloride 103 (98-107) mEq/L Carbon Dioxide 23 (21-32) mEq/L Anion Gap 16.6 H (5-15) BUN 33 H (7-18) mg/dL Creatinine 1.7 H (0.7-1.3) mg/dL Est Cr Clr Drug Dosing TNP Estimated GFR (MDRD) 38 (>60) mL/min BUN/Creatinine Ratio 19.4 H (14-18) Glucose 217 H (70-99) mg/dL POC Glucose (70-99) mg/dL Lactic Acid (0.4-2.0) mmol/L Calcium 10.0 (8.5-10.1) mg/dL Magnesium 2.0 (1.8-2.4) mg/dL Total Bilirubin 0.5 (0.2-1.0) mg/dL AST 21 (15-37) U/L ALT 36 (16-63) U/L Alkaline Phosphatase 76 (46-116) U/L Troponin I (0.00-0.056) ng/mL C-Reactive Protein <0.2 (<1.0) mg/dL Total Protein 7.9 (6.4-8.2) g/dl Albumin 3.8 (3.4-5.0) g/dl Globulin 4.1 gm/dL Albumin/Globulin Ratio 0.9 L (1-2) Lipase 80 (73-393) U/L Urine Color Dark yellow (Yellow) Urine Appearance Clear (Clear) Urine pH 5.0 (5.0-8.0) Ur Specific [place] > or = 1.030 (1.005-1.030) Urine Protein 2+ H (Negative) Urine Glucose (UA) Negative (Negative) Urine Ketones 1+ H (Negative) Urine Occult Blood Negative (Negative) Urine Nitrite Negative (Negative) Urine Bilirubin 2+ H (Negative) Urine Urobilinogen 1.0 (0.2-1.0) Ur Leukocyte Esterase Negative (Negative) U Hyaline Cast (Auto) 0-5 (0-5) /lpf Urine RBC 0-5 (0-5) /hpf Urine WBC 0-5 (0-5) /hpf Ur Squamous Epith Cells 0-5 (0-5) /hpf Urine Bacteria Few (FEW) /hpf Urine Mucus Few (FEW) /hpf SARS-CoV-2 RNA (ANIA) (NEGATIVE) 03/12/21 03/12/21 03/12/21 Range/Units 11:15 16:56 16:56 WBC (4.23-9.07) K/mm3 RBC (4.63-6.08) M/mm3 Hgb (13.7-17.5) gm/dl Hct (40.1-51.0) % MCV (79.0-92.2) fl MCH (25.7-32.2) pg MCHC (32.2-35.5) g/dl RDW Std Deviation (35.1-43.9) fL Plt Count (163-337) K/mm3 MPV (9.4-12.3) fl Neut % (Auto) (34.0-67.9) % Lymph % (Auto) (21.8-53.1) % [place] % (Auto) (5.3-12.2) % Eos % (Auto) (0.8-7.0) Baso % (Auto) (0.1-1.2) % Neut # (Auto) (1.78-5.38) K/mm3 Lymph # (Auto) (1.32-3.57) K/mm3 [place] # (Auto) (0.30-0.82) K/mm3 Eos # (Auto) (0.04-0.54) K/mm3 Baso # (Auto) (0.01-0.08) K/mm3 Sodium (136-145) mEq/L Potassium (3.5-5.1) mEq/L Chloride (98-107) mEq/L Carbon Dioxide (21-32) mEq/L Anion Gap (5-15) BUN (7-18) mg/dL Creatinine (0.7-1.3) mg/dL Est Cr Clr Drug Dosing Estimated GFR (MDRD) (>60) mL/min BUN/Creatinine Ratio (14-18) Glucose (70-99) mg/dL POC Glucose (70-99) mg/dL Lactic Acid 1.2 (0.4-2.0) mmol/L Calcium (8.5-10.1) mg/dL Magnesium (1.8-2.4) mg/dL Total Bilirubin (0.2-1.0) mg/dL AST (15-37) U/L ALT (16-63) U/L Alkaline Phosphatase (46-116) U/L Troponin I < 0.017 (0.00-0.056) ng/mL C-Reactive Protein (<1.0) mg/dL Total Protein (6.4-8.2) g/dl Albumin (3.4-5.0) g/dl Globulin gm/dL Albumin/Globulin Ratio (1-2) Lipase (73-393) U/L Urine Color (Yellow) Urine Appearance (Clear) Urine pH (5.0-8.0) Ur Specific [place] (1.005-1.030) Urine Protein (Negative) Urine Glucose (UA) (Negative) Urine Ketones (Negative) Urine Occult Blood (Negative) Urine Nitrite (Negative) Urine Bilirubin (Negative) Urine Urobilinogen (0.2-1.0) Ur Leukocyte Esterase (Negative) U Hyaline Cast (Auto) (0-5) /lpf Urine RBC (0-5) /hpf Urine WBC (0-5) /hpf Ur Squamous Epith Cells (0-5) /hpf Urine Bacteria (FEW) /hpf Urine Mucus (FEW) /hpf SARS-CoV-2 RNA (ANIA) Negative (NEGATIVE) 03/12/21 03/12/21 03/13/21 Range/Units 18:40 21:05 06:10 WBC (4.23-9.07) K/mm3 RBC (4.63-6.08) M/mm3 Hgb (13.7-17.5) gm/dl Hct (40.1-51.0) % MCV (79.0-92.2) fl MCH (25.7-32.2) pg MCHC (32.2-35.5) g/dl RDW Std Deviation (35.1-43.9) fL Plt Count (163-337) K/mm3 MPV (9.4-12.3) fl Neut % (Auto) (34.0-67.9) % Lymph % (Auto) (21.8-53.1) % [place] % (Auto) (5.3-12.2) % Eos % (Auto) (0.8-7.0) Baso % (Auto) (0.1-1.2) % Neut # (Auto) (1.78-5.38) K/mm3 Lymph # (Auto) (1.32-3.57) K/mm3 [place] # (Auto) (0.30-0.82) K/mm3 Eos # (Auto) (0.04-0.54) K/mm3 Baso # (Auto) (0.01-0.08) K/mm3 Sodium (136-145) mEq/L Potassium (3.5-5.1) mEq/L Chloride (98-107) mEq/L Carbon Dioxide (21-32) mEq/L Anion Gap (5-15) BUN (7-18) mg/dL Creatinine (0.7-1.3) mg/dL Est Cr Clr Drug Dosing Estimated GFR (MDRD) (>60) mL/min BUN/Creatinine Ratio (14-18) Glucose (70-99) mg/dL POC Glucose 135 H 142 H 147 H (70-99) mg/dL Lactic Acid (0.4-2.0) mmol/L Calcium (8.5-10.1) mg/dL Magnesium (1.8-2.4) mg/dL Total Bilirubin (0.2-1.0) mg/dL AST (15-37) U/L ALT (16-63) U/L Alkaline Phosphatase (46-116) U/L Troponin I (0.00-0.056) ng/mL C-Reactive Protein (<1.0) mg/dL Total Protein (6.4-8.2) g/dl Albumin (3.4-5.0) g/dl Globulin gm/dL Albumin/Globulin Ratio (1-2) Lipase (73-393) U/L Urine Color (Yellow) Urine Appearance (Clear) Urine pH (5.0-8.0) Ur Specific [place] (1.005-1.030) Urine Protein (Negative) Urine Glucose (UA) (Negative) Urine Ketones (Negative) Urine Occult Blood (Negative) Urine Nitrite (Negative) Urine Bilirubin (Negative) Urine Urobilinogen (0.2-1.0) Ur Leukocyte Esterase (Negative) U Hyaline Cast (Auto) (0-5) /lpf Urine RBC (0-5) /hpf Urine WBC (0-5) /hpf Ur Squamous Epith Cells (0-5) /hpf Urine Bacteria (FEW) /hpf Urine Mucus (FEW) /hpf SARS-CoV-2 RNA (ANIA) (NEGATIVE) Med Orders - Current: Current Medications Enoxaparin Sodium (Enoxaparin 40 Mg/0.4 Ml Syringe) 40 mg SUBCUT DAILY [facility] Hydromorphone HCl (Hydromorphone 0.5 Mg/0.5 Ml Syringe) 0.5 mg IVPUSH Q4H PRN PRN Reason: Pain (severe 7-10) Sodium Chloride (Normal Saline) 1,000 mls @ 150 mls/hr IV ASDIRECTED [facility] Last Admin: 03/13/21 05:59 Dose: 125 mls/hr Documented by: Insulin Human Lispro (Insulin Lispro 100 Unit/Ml 3 Ml Kwikpen) 0 unit SUBCUT Q6H [facility]; Protocol Last Admin: 03/13/21 06:30 Dose: Not Given Documented by: Metoclopramide HCl (Metoclopramide 10 Mg/2 Ml Sdv) 5 mg IVPUSH Q6H PRN PRN Reason: Nausea/Vomiting Ondansetron HCl (Ondansetron 4 Mg/2 Ml Sdv) 4 mg IV Q4H PRN PRN Reason: Nausea/Vomiting Pantoprazole Sodium (Pantoprazole 40 Mg Vial) 40 mg IV Q12HR [facility] Last Admin: 03/12/21 21:15 Dose: 40 mg Documented by: Sodium Chloride (Sodium Chloride 0.9% 10 Ml Syringe) 10 ml FLUSH ASDIRECTED PRN PRN Reason: Keep Vein Open Last Admin: 03/12/21 09:10 Dose: 10 ml Documented by: Discontinued Medications Hydromorphone HCl (Hydromorphone 0.5 Mg/0.5 Ml Syringe) 0.5 mg IVPUSH ONETIME ONE Stop: 03/12/21 08:46 Last Admin: 03/12/21 09:09 Dose: 0.5 mg Documented by: Hydromorphone HCl (Hydromorphone 0.5 Mg/0.5 Ml Syringe) 0.5 mg IVPUSH ONETIME ONE Stop: 03/12/21 11:18 Last Admin: 03/12/21 12:32 Dose: 0.5 mg Documented by: Sodium Chloride (Normal Saline) 1,000 mls @ 999 mls/hr IV Q1H [facility] Stop: 03/12/21 09:29 Last Admin: 03/12/21 23:05 Dose: Not Given Documented by: Sodium Chloride (Normal Saline) 1,000 mls @ 250 mls/hr IV ASDIRECTED [facility] Last Admin: 03/12/21 09:09 Dose: 250 mls/hr Documented by: Sodium Chloride (Normal Saline) 100 mls @ 60 mls/hr IV ASDIRECTED [facility] Last Admin: 03/12/21 10:38 Dose: 60 mls/hr Documented by: Sodium Chloride (Normal Saline) 1,000 mls @ 500 mls/hr IV ONETIME ONE Stop: 03/12/21 18:42 Last Admin: 03/12/21 17:00 Dose: 500 mls/hr Documented by: Iopamidol (Iopamidol 612 Mg/Ml 100 Ml Bottle) 100 ml IVPUSH ONETIME ONE Stop: 03/12/21 10:37 Last Admin: 03/12/21 10:38 Dose: 100 ml Documented by: Ondansetron HCl (Ondansetron 4 Mg/2 Ml Sdv) 4 mg IVPUSH ONETIME ONE Stop: 03/12/21 08:24 Last Admin: 03/12/21 09:09 Dose: 4 mg Documented by: Sodium Chloride (Sodium Chloride 0.9% 10 Ml Syringe) 10 ml FLUSH ONETIME ONE Stop: 03/12/21 10:37 Last Admin: 03/12/21 10:38 Dose: 10 ml Documented by: - Exam General: Alert, Oriented, Cooperative Lungs: Clear to Auscultation, Normal Respiratory Effort Cardiovascular: Regular Rate, Regular Rhythm GI/Abdominal Exam: Soft, Distended, Tender (around the hernia site. No rebound trenderness or guarding.) - Patient Data Lab Results Last 24 hrs: Laboratory Results - last 24 hr 03/12/21 03/12/21 03/12/21 Range/Units 08:35 08:35 09:00 WBC 15.45 H (4.23-9.07) K/mm3 RBC 5.28 (4.63-6.08) M/mm3 Hgb 15.3 D (13.7-17.5) gm/dl Hct 46.9 (40.1-51.0) % MCV 88.8 (79.0-92.2) fl MCH 29.0 (25.7-32.2) pg MCHC 32.6 (32.2-35.5) g/dl RDW Std Deviation 44.3 H (35.1-43.9) fL Plt Count 245 (163-337) K/mm3 MPV 9.8 (9.4-12.3) fl Neut % (Auto) 92.0 H (34.0-67.9) % Lymph % (Auto) 2.5 L (21.8-53.1) % [place] % (Auto) 5.0 L (5.3-12.2) % Eos % (Auto) 0.1 L (0.8-7.0) Baso % (Auto) 0.1 (0.1-1.2) % Neut # (Auto) 14.23 H (1.78-5.38) K/mm3 Lymph # (Auto) 0.39 L (1.32-3.57) K/mm3 [place] # (Auto) 0.77 (0.30-0.82) K/mm3 Eos # (Auto) 0.01 L (0.04-0.54) K/mm3 Baso # (Auto) 0.01 (0.01-0.08) K/mm3 Sodium 138 (136-145) mEq/L Potassium 4.6 (3.5-5.1) mEq/L Chloride 103 (98-107) mEq/L Carbon Dioxide 23 (21-32) mEq/L Anion Gap 16.6 H (5-15) BUN 33 H (7-18) mg/dL Creatinine 1.7 H (0.7-1.3) mg/dL Est Cr Clr Drug Dosing TNP Estimated GFR (MDRD) 38 (>60) mL/min BUN/Creatinine Ratio 19.4 H (14-18) Glucose 217 H (70-99) mg/dL POC Glucose (70-99) mg/dL Lactic Acid (0.4-2.0) mmol/L Calcium 10.0 (8.5-10.1) mg/dL Magnesium 2.0 (1.8-2.4) mg/dL Total Bilirubin 0.5 (0.2-1.0) mg/dL AST 21 (15-37) U/L ALT 36 (16-63) U/L Alkaline Phosphatase 76 (46-116) U/L Troponin I (0.00-0.056) ng/mL C-Reactive Protein <0.2 (<1.0) mg/dL Total Protein 7.9 (6.4-8.2) g/dl Albumin 3.8 (3.4-5.0) g/dl Globulin 4.1 gm/dL Albumin/Globulin Ratio 0.9 L (1-2) Lipase 80 (73-393) U/L Urine Color Dark yellow (Yellow) Urine Appearance Clear (Clear) Urine pH 5.0 (5.0-8.0) Ur Specific [place] > or = 1.030 (1.005-1.030) Urine Protein 2+ H (Negative) Urine Glucose (UA) Negative (Negative) Urine Ketones 1+ H (Negative) Urine Occult Blood Negative (Negative) Urine Nitrite Negative (Negative) Urine Bilirubin 2+ H (Negative) Urine Urobilinogen 1.0 (0.2-1.0) Ur Leukocyte Esterase Negative (Negative) U Hyaline Cast (Auto) 0-5 (0-5) /lpf Urine RBC 0-5 (0-5) /hpf Urine WBC 0-5 (0-5) /hpf Ur Squamous Epith Cells 0-5 (0-5) /hpf Urine Bacteria Few (FEW) /hpf Urine Mucus Few (FEW) /hpf SARS-CoV-2 RNA (ANIA) (NEGATIVE) 03/12/21 03/12/21 03/12/21 Range/Units 11:15 16:56 16:56 WBC (4.23-9.07) K/mm3 RBC (4.63-6.08) M/mm3 Hgb (13.7-17.5) gm/dl Hct (40.1-51.0) % MCV (79.0-92.2) fl MCH (25.7-32.2) pg MCHC (32.2-35.5) g/dl RDW Std Deviation (35.1-43.9) fL Plt Count (163-337) K/mm3 MPV (9.4-12.3) fl Neut % (Auto) (34.0-67.9) % Lymph % (Auto) (21.8-53.1) % [place] % (Auto) (5.3-12.2) % Eos % (Auto) (0.8-7.0) Baso % (Auto) (0.1-1.2) % Neut # (Auto) (1.78-5.38) K/mm3 Lymph # (Auto) (1.32-3.57) K/mm3 [place] # (Auto) (0.30-0.82) K/mm3 Eos # (Auto) (0.04-0.54) K/mm3 Baso # (Auto) (0.01-0.08) K/mm3 Sodium (136-145) mEq/L Potassium (3.5-5.1) mEq/L Chloride (98-107) mEq/L Carbon Dioxide (21-32) mEq/L Anion Gap (5-15) BUN (7-18) mg/dL Creatinine (0.7-1.3) mg/dL Est Cr Clr Drug Dosing Estimated GFR (MDRD) (>60) mL/min BUN/Creatinine Ratio (14-18) Glucose (70-99) mg/dL POC Glucose (70-99) mg/dL Lactic Acid 1.2 (0.4-2.0) mmol/L Calcium (8.5-10.1) mg/dL Magnesium (1.8-2.4) mg/dL Total Bilirubin (0.2-1.0) mg/dL AST (15-37) U/L ALT (16-63) U/L Alkaline Phosphatase (46-116) U/L Troponin I < 0.017 (0.00-0.056) ng/mL C-Reactive Protein (<1.0) mg/dL Total Protein (6.4-8.2) g/dl Albumin (3.4-5.0) g/dl Globulin gm/dL Albumin/Globulin Ratio (1-2) Lipase (73-393) U/L Urine Color (Yellow) Urine Appearance (Clear) Urine pH (5.0-8.0) Ur Specific [place] (1.005-1.030) Urine Protein (Negative) Urine Glucose (UA) (Negative) Urine Ketones (Negative) Urine Occult Blood (Negative) Urine Nitrite (Negative) Urine Bilirubin (Negative) Urine Urobilinogen (0.2-1.0) Ur Leukocyte Esterase (Negative) U Hyaline Cast (Auto) (0-5) /lpf Urine RBC (0-5) /hpf Urine WBC (0-5) /hpf Ur Squamous Epith Cells (0-5) /hpf Urine Bacteria (FEW) /hpf Urine Mucus (FEW) /hpf SARS-CoV-2 RNA (ANIA) Negative (NEGATIVE) 03/12/21 03/12/21 03/13/21 Range/Units 18:40 21:05 06:10 WBC (4.23-9.07) K/mm3 RBC (4.63-6.08) M/mm3 Hgb (13.7-17.5) gm/dl Hct (40.1-51.0) % MCV (79.0-92.2) fl MCH (25.7-32.2) pg MCHC (32.2-35.5) g/dl RDW Std Deviation (35.1-43.9) fL Plt Count (163-337) K/mm3 MPV (9.4-12.3) fl Neut % (Auto) (34.0-67.9) % Lymph % (Auto) (21.8-53.1) % [place] % (Auto) (5.3-12.2) % Eos % (Auto) (0.8-7.0) Baso % (Auto) (0.1-1.2) % Neut # (Auto) (1.78-5.38) K/mm3 Lymph # (Auto) (1.32-3.57) K/mm3 [place] # (Auto) (0.30-0.82) K/mm3 Eos # (Auto) (0.04-0.54) K/mm3 Baso # (Auto) (0.01-0.08) K/mm3 Sodium (136-145) mEq/L Potassium (3.5-5.1) mEq/L Chloride (98-107) mEq/L Carbon Dioxide (21-32) mEq/L Anion Gap (5-15) BUN (7-18) mg/dL Creatinine (0.7-1.3) mg/dL Est Cr Clr Drug Dosing Estimated GFR (MDRD) (>60) mL/min BUN/Creatinine Ratio (14-18) Glucose (70-99) mg/dL POC Glucose 135 H 142 H 147 H (70-99) mg/dL Lactic Acid (0.4-2.0) mmol/L Calcium (8.5-10.1) mg/dL Magnesium (1.8-2.4) mg/dL Total Bilirubin (0.2-1.0) mg/dL AST (15-37) U/L ALT (16-63) U/L Alkaline Phosphatase (46-116) U/L Troponin I (0.00-0.056) ng/mL C-Reactive Protein (<1.0) mg/dL Total Protein (6.4-8.2) g/dl Albumin (3.4-5.0) g/dl Globulin gm/dL Albumin/Globulin Ratio (1-2) Lipase (73-393) U/L Urine Color (Yellow) Urine Appearance (Clear) Urine pH (5.0-8.0) Ur Specific [place] (1.005-1.030) Urine Protein (Negative) Urine Glucose (UA) (Negative) Urine Ketones (Negative) Urine Occult Blood (Negative) Urine Nitrite (Negative) Urine Bilirubin (Negative) Urine Urobilinogen (0.2-1.0) Ur Leukocyte Esterase (Negative) U Hyaline Cast (Auto) (0-5) /lpf Urine RBC (0-5) /hpf Urine WBC (0-5) /hpf Ur Squamous Epith Cells (0-5) /hpf Urine Bacteria (FEW) /hpf Urine Mucus (FEW) /hpf SARS-CoV-2 RNA (ANIA) (NEGATIVE) Result Diagrams: 03/12/21 08:35 03/12/21 08:35 Sepsis Event Note - Evaluation Sepsis Screening Result: No Definite Risk - Focused Exam Vital Signs: Vital Signs Temp Pulse Resp BP Pulse Ox Pulse Ox 03/13/21 03:46 97.3 F 71 16 109/64 96 03/12/21 23:26 98.4 F 77 18 123/59 L 94 L 03/12/21 23:25 79 18 123/60 94 L 03/12/21 21:23 92 L 03/12/21 19:43 98.4 F 81 18 108/53 L 94 L - Problem List Review Problem List Initiated/Reviewed/Updated: No - My Orders Last 24 Hours: My Active Orders 03/12/21 14:21 HYDROmorphone [Dilaudid] 0.5 mg IVPUSH Q4H PRN 03/12/21 14:24 Metoclopramide [Reglan] 5 mg IVPUSH Q6H PRN 03/12/21 14:26 Up With Assistance [RC] BID 03/12/21 14:30 Sodium Chloride 0.9% [Normal Saline] 1,000 ml IV ASDIRECTED 03/12/21 14:31 Code Status [Resuscitation Status] Routine 03/12/21 16:11 Gastrointestinal Tube Mgmt [RC] ASDIRECTED NG [Nasogastric Orogastric Tube Insertion] [OM.PC] Routine 03/12/21 16:26 Ambulate [RC] Q6HR Oxygen Therapy [RC] PRN VTE/DVT Education [RC] PER UNIT ROUTINE Vital Signs [RC] Q4HR Ondansetron [Zofran] 4 mg IV Q4H PRN Glucose Management Sub Q Reflex [OM.PC] Click To Edit 03/12/21 16:27 Cardiac Monitoring [RC] CONTINUOUS Intake and Output [RC] Q4HR Pulse Oximetry [RC] CONTINUOUS Sequential Compression Device [OM.PC] Per Unit Routine 03/12/21 16:29 Antiembolic Devices [RC] PER UNIT ROUTINE 03/12/21 16:31 Diabetes Education [RC] Click to Edit 03/12/21 16:38 Blood Glucose Check, Bedside [RC] 06,12,18,00 03/12/21 16:45 Insulin Lispro [HumaLOG] See Protocol SUBCUT Q6H 03/12/21 Dinner Nothing per Oral Now Diet [DIET] 03/12/21 21:00 Pantoprazole [ProTONIX IV] 40 mg IV Q12HR 03/13/21 05:19 BASIC METABOLIC PANEL,BMP [CHEM] AM CBC WITH AUTO DIFF [HEME] AM MAGNESIUM [CHEM] AM PHOSPHORUS [CHEM] AM 03/13/21 09:00 Enoxaparin [Lovenox] 40 mg SUBCUT DAILY 03/13/21 16:13 LACTIC ACID [CHEM] DAILY 03/14/21 05:11 BASIC METABOLIC PANEL,BMP [CHEM] AM CBC WITH AUTO DIFF [HEME] AM MAGNESIUM [CHEM] AM PHOSPHORUS [CHEM] AM 03/14/21 16:13 LACTIC ACID [CHEM] DAILY 03/15/21 05:11 BASIC METABOLIC PANEL,BMP [CHEM] AM CBC WITH AUTO DIFF [HEME] AM MAGNESIUM [CHEM] AM PHOSPHORUS [CHEM] AM 03/16/21 05:11 BASIC METABOLIC PANEL,BMP [CHEM] AM CBC WITH AUTO DIFF [HEME] AM MAGNESIUM [CHEM] AM PHOSPHORUS [CHEM] AM 03/17/21 05:11 BASIC METABOLIC PANEL,BMP [CHEM] AM CBC WITH AUTO DIFF [HEME] AM MAGNESIUM [CHEM] AM PHOSPHORUS [CHEM] AM - Assessment Assessment:: HD1 for SBO. Not improved yet - Plan Plan:: - Patient is stable. Overall plan is to continue expectant management today. If no improvement, we may consider surgery starting tomorrow. - continue NGT, IVF today - ambulate TID - will check labs when they are back - Diabetes - continue SSI - HTN, HLD - holding home meds for now.
[2021-03-13] MEDS: Pantoprazole 40 MG Vial IV SCH ×2 (09:27→20:51)
[2021-03-13] MEDS: Enoxaparin 40 MG/0.4 ML Syringe SUBCUT SCH (09:27)
[2021-03-13] MEDS ORDERED: Sodium Chloride 0.9% 1,000 ML IV SCH (12:45)
[2021-03-13] MEDS: D5 1/2 NS w/ 20 mEq/L KCl 1,000 ML IV SCH (18:54)
[2021-03-13] MEDS: Metoprolol Tartrate 5 MG/5 ML SDV IVPUSH SCH (20:50)
[2021-03-14] MEDS: Insulin Lispro 100 Unit/ML 3 ML KwikPen SUBCUT SCH ×4 (00:32→17:30)
[2021-03-14] MEDS: Metoprolol Tartrate 5 MG/5 ML SDV IVPUSH SCH ×3 (02:32→16:47)
--- NOTE | 2021-03-14 07:46 | PCM.PN ---
- General Info Date of Service: 03/14/21 Admission Dx/Problem (Free Text): Admission Diagnosis/Problem Admission Diagnosis/Problem Small bowel obstruction Subjective Update: Patient is doing better today. He did report passing some flatus. abdomen is not as distended or painful today. No vomiting Functional Status: Reports: Pain Controlled, Tolerating Diet, Ambulating, Urinating - Review of Systems General: Reports: No Symptoms HEENT: Reports: No Symptoms Pulmonary: Reports: No Symptoms Cardiovascular: Reports: No Symptoms Gastrointestinal: Reports: Abdominal Pain Genitourinary: Reports: No Symptoms Musculoskeletal: Reports: No Symptoms Skin: Reports: No Symptoms - Patient Data Vitals - Most Recent: Last Vital Signs Temp 99.0 F 03/14/21 05:35 Pulse 60 03/14/21 05:35 Resp 17 03/14/21 05:35 BP 114/59 L 03/14/21 05:35 Pulse Ox 95 03/14/21 05:35 Weight - Most Recent: 86.273 kg I&O - Last 24 Hours: Intake & Output 03/13/21 03/14/21 03/14/21 22:59 06:59 14:59 Intake Total 2602 400 Output Total 450 950 Balance 2152 -550 Lab Results Last 24 Hours: Laboratory Results - last 24 hr 03/13/21 03/13/21 03/13/21 Range/Units 05:19 05:19 11:30 WBC (4.23-9.07) K/mm3 RBC (4.63-6.08) M/mm3 Hgb (13.7-17.5) gm/dl Hct (40.1-51.0) % MCV (79.0-92.2) fl MCH (25.7-32.2) pg MCHC (32.2-35.5) g/dl RDW Std Deviation (35.1-43.9) fL Plt Count (163-337) K/mm3 MPV (9.4-12.3) fl Neut % (Auto) (34.0-67.9) % Lymph % (Auto) (21.8-53.1) % Greene % (Auto) (5.3-12.2) % Eos % (Auto) (0.8-7.0) Baso % (Auto) (0.1-1.2) % Neut # (Auto) (1.78-5.38) K/mm3 Lymph # (Auto) (1.32-3.57) K/mm3 Greene # (Auto) (0.30-0.82) K/mm3 Eos # (Auto) (0.04-0.54) K/mm3 Baso # (Auto) (0.01-0.08) K/mm3 Manual Slide Review Not Reportable Sodium 144 (136-145) mEq/L Potassium 4.6 (3.5-5.1) mEq/L Chloride 108 H (98-107) mEq/L Carbon Dioxide 24 (21-32) mEq/L Anion Gap 16.6 H (5-15) BUN 34 H (7-18) mg/dL Creatinine 1.5 H (0.7-1.3) mg/dL Est Cr Clr Drug Dosing 31.31 mL/min Estimated GFR (MDRD) 44 (>60) mL/min BUN/Creatinine Ratio 22.7 H (14-18) Glucose 150 H (70-99) mg/dL POC Glucose 109 H (70-99) mg/dL Lactic Acid (0.4-2.0) mmol/L Calcium 8.4 L D (8.5-10.1) mg/dL Phosphorus 4.0 (2.6-4.7) mg/dL Magnesium 1.9 (1.8-2.4) mg/dL 03/13/21 03/13/21 03/14/21 Range/Units 17:09 18:05 00:06 WBC (4.23-9.07) K/mm3 RBC (4.63-6.08) M/mm3 Hgb (13.7-17.5) gm/dl Hct (40.1-51.0) % MCV (79.0-92.2) fl MCH (25.7-32.2) pg MCHC (32.2-35.5) g/dl RDW Std Deviation (35.1-43.9) fL Plt Count (163-337) K/mm3 MPV (9.4-12.3) fl Neut % (Auto) (34.0-67.9) % Lymph % (Auto) (21.8-53.1) % Greene % (Auto) (5.3-12.2) % Eos % (Auto) (0.8-7.0) Baso % (Auto) (0.1-1.2) % Neut # (Auto) (1.78-5.38) K/mm3 Lymph # (Auto) (1.32-3.57) K/mm3 Greene # (Auto) (0.30-0.82) K/mm3 Eos # (Auto) (0.04-0.54) K/mm3 Baso # (Auto) (0.01-0.08) K/mm3 Manual Slide Review Sodium (136-145) mEq/L Potassium (3.5-5.1) mEq/L Chloride (98-107) mEq/L Carbon Dioxide (21-32) mEq/L Anion Gap (5-15) BUN (7-18) mg/dL Creatinine (0.7-1.3) mg/dL Est Cr Clr Drug Dosing mL/min Estimated GFR (MDRD) (>60) mL/min BUN/Creatinine Ratio (14-18) Glucose (70-99) mg/dL POC Glucose 85 91 (70-99) mg/dL Lactic Acid 0.8 (0.4-2.0) mmol/L Calcium (8.5-10.1) mg/dL Phosphorus (2.6-4.7) mg/dL Magnesium (1.8-2.4) mg/dL 03/14/21 03/14/21 03/14/21 Range/Units 05:16 05:16 05:37 WBC 6.56 (4.23-9.07) K/mm3 RBC 4.09 L (4.63-6.08) M/mm3 Hgb 11.5 L D (13.7-17.5) gm/dl Hct 38.2 L (40.1-51.0) % MCV 93.4 H (79.0-92.2) fl MCH 28.1 (25.7-32.2) pg MCHC 30.1 L (32.2-35.5) g/dl RDW Std Deviation 45.3 H (35.1-43.9) fL Plt Count 189 (163-337) K/mm3 MPV 9.7 (9.4-12.3) fl Neut % (Auto) 66.0 (34.0-67.9) % Lymph % (Auto) 15.2 L (21.8-53.1) % Greene % (Auto) 14.6 H (5.3-12.2) % Eos % (Auto) 3.8 (0.8-7.0) Baso % (Auto) 0.2 (0.1-1.2) % Neut # (Auto) 4.33 (1.78-5.38) K/mm3 Lymph # (Auto) 1.00 L (1.32-3.57) K/mm3 Greene # (Auto) 0.96 H (0.30-0.82) K/mm3 Eos # (Auto) 0.25 (0.04-0.54) K/mm3 Baso # (Auto) 0.01 (0.01-0.08) K/mm3 Manual Slide Review Sodium 144 (136-145) mEq/L Potassium 4.1 (3.5-5.1) mEq/L Chloride 110 H (98-107) mEq/L Carbon Dioxide 24 (21-32) mEq/L Anion Gap 14.1 (5-15) BUN 29 H (7-18) mg/dL Creatinine 1.3 (0.7-1.3) mg/dL Est Cr Clr Drug Dosing 36.13 mL/min Estimated GFR (MDRD) 52 (>60) mL/min BUN/Creatinine Ratio 22.3 H (14-18) Glucose 102 H (70-99) mg/dL POC Glucose 97 (70-99) mg/dL Lactic Acid (0.4-2.0) mmol/L Calcium 8.0 L (8.5-10.1) mg/dL Phosphorus 2.3 L (2.6-4.7) mg/dL Magnesium 2.0 (1.8-2.4) mg/dL Med Orders - Current: Current Medications Enoxaparin Sodium (Enoxaparin 40 Mg/0.4 Ml Syringe) 40 mg SUBCUT DAILY [facility] Last Admin: 03/13/21 09:27 Dose: 40 mg Documented by: Hydromorphone HCl (Hydromorphone 0.5 Mg/0.5 Ml Syringe) 0.5 mg IVPUSH Q4H PRN PRN Reason: Pain (severe 7-10) Potassium Chloride/Dextrose/Sod Cl (D5 1/2 Ns W/ 20 Meq/L Kcl) 1,000 mls @ 50 mls/hr IV ASDIRECTED [facility] Last Admin: 03/13/21 18:54 Dose: 50 mls/hr Documented by: Sodium Phosphate 30 mmole/ (Sodium Chloride) 260 mls @ 86.667 mls/hr IV ONETIME ONE Stop: 03/14/21 10:59 Insulin Human Lispro (Insulin Lispro 100 Unit/Ml 3 Ml Kwikpen) 0 unit SUBCUT Q6H [facility]; Protocol Last Admin: 03/14/21 06:29 Dose: Not Given Documented by: Metoclopramide HCl (Metoclopramide 10 Mg/2 Ml Sdv) 5 mg IVPUSH Q6H PRN PRN Reason: Nausea/Vomiting Metoprolol Tartrate (Metoprolol Tartrate 5 Mg/5 Ml Sdv) 5 mg IVPUSH Q6H [facility] Last Admin: 03/14/21 02:32 Dose: 5 mg Documented by: Ondansetron HCl (Ondansetron 4 Mg/2 Ml Sdv) 4 mg IV Q4H PRN PRN Reason: Nausea/Vomiting Pantoprazole Sodium (Pantoprazole 40 Mg Vial) 40 mg IV Q12HR [facility] Last Admin: 03/13/21 20:51 Dose: 40 mg Documented by: Sodium Chloride (Sodium Chloride 0.9% 10 Ml Syringe) 10 ml FLUSH ASDIRECTED PRN PRN Reason: Keep Vein Open Last Admin: 03/12/21 09:10 Dose: 10 ml Documented by: Discontinued Medications Hydromorphone HCl (Hydromorphone 0.5 Mg/0.5 Ml Syringe) 0.5 mg IVPUSH ONETIME ONE Stop: 03/12/21 08:46 Last Admin: 03/12/21 09:09 Dose: 0.5 mg Documented by: Hydromorphone HCl (Hydromorphone 0.5 Mg/0.5 Ml Syringe) 0.5 mg IVPUSH ONETIME ONE Stop: 03/12/21 11:18 Last Admin: 03/12/21 12:32 Dose: 0.5 mg Documented by: Sodium Chloride (Normal Saline) 1,000 mls @ 999 mls/hr IV Q1H [facility] Stop: 03/12/21 09:29 Last Admin: 03/12/21 23:05 Dose: Not Given Documented by: Sodium Chloride (Normal Saline) 1,000 mls @ 250 mls/hr IV ASDIRECTED [facility] Last Admin: 03/12/21 09:09 Dose: 250 mls/hr Documented by: Sodium Chloride (Normal Saline) 100 mls @ 60 mls/hr IV ASDIRECTED [facility] Last Admin: 03/12/21 10:38 Dose: 60 mls/hr Documented by: Sodium Chloride (Normal Saline) 1,000 mls @ 150 mls/hr IV ASDIRECTED [facility] Last Admin: 03/13/21 11:16 Dose: 125 mls/hr Documented by: Sodium Chloride (Normal Saline) 1,000 mls @ 500 mls/hr IV ONETIME ONE Stop: 03/12/21 18:42 Last Admin: 03/12/21 17:00 Dose: 500 mls/hr Documented by: Sodium Chloride (Normal Saline) 1,000 mls @ 50 mls/hr IV ASDIRECTED [facility] Insulin Human Lispro (Insulin Lispro 100 Unit/Ml 3 Ml Kwikpen) 0 unit SUBCUT Q6H [facility]; Protocol Last Admin: 03/13/21 06:30 Dose: Not Given Documented by: Iopamidol (Iopamidol 612 Mg/Ml 100 Ml Bottle) 100 ml IVPUSH ONETIME ONE Stop: 03/12/21 10:37 Last Admin: 03/12/21 10:38 Dose: 100 ml Documented by: Ondansetron HCl (Ondansetron 4 Mg/2 Ml Sdv) 4 mg IVPUSH ONETIME ONE Stop: 03/12/21 08:24 Last Admin: 03/12/21 09:09 Dose: 4 mg Documented by: Sodium Chloride (Sodium Chloride 0.9% 10 Ml Syringe) 10 ml FLUSH ONETIME ONE Stop: 03/12/21 10:37 Last Admin: 03/12/21 10:38 Dose: 10 ml Documented by: - Exam General: Alert, Oriented, Cooperative Lungs: Clear to Auscultation, Normal Respiratory Effort Cardiovascular: Regular Rate, Regular Rhythm GI/Abdominal Exam: Soft, No Distention, Tender (minimally, without any guarding or rebound) - Patient Data Lab Results Last 24 hrs: Laboratory Results - last 24 hr 03/13/21 03/13/21 03/13/21 Range/Units 05:19 05:19 11:30 WBC (4.23-9.07) K/mm3 RBC (4.63-6.08) M/mm3 Hgb (13.7-17.5) gm/dl Hct (40.1-51.0) % MCV (79.0-92.2) fl MCH (25.7-32.2) pg MCHC (32.2-35.5) g/dl RDW Std Deviation (35.1-43.9) fL Plt Count (163-337) K/mm3 MPV (9.4-12.3) fl Neut % (Auto) (34.0-67.9) % Lymph % (Auto) (21.8-53.1) % Greene % (Auto) (5.3-12.2) % Eos % (Auto) (0.8-7.0) Baso % (Auto) (0.1-1.2) % Neut # (Auto) (1.78-5.38) K/mm3 Lymph # (Auto) (1.32-3.57) K/mm3 Greene # (Auto) (0.30-0.82) K/mm3 Eos # (Auto) (0.04-0.54) K/mm3 Baso # (Auto) (0.01-0.08) K/mm3 Manual Slide Review Not Reportable Sodium 144 (136-145) mEq/L Potassium 4.6 (3.5-5.1) mEq/L Chloride 108 H (98-107) mEq/L Carbon Dioxide 24 (21-32) mEq/L Anion Gap 16.6 H (5-15) BUN 34 H (7-18) mg/dL Creatinine 1.5 H (0.7-1.3) mg/dL Est Cr Clr Drug Dosing 31.31 mL/min Estimated GFR (MDRD) 44 (>60) mL/min BUN/Creatinine Ratio 22.7 H (14-18) Glucose 150 H (70-99) mg/dL POC Glucose 109 H (70-99) mg/dL Lactic Acid (0.4-2.0) mmol/L Calcium 8.4 L D (8.5-10.1) mg/dL Phosphorus 4.0 (2.6-4.7) mg/dL Magnesium 1.9 (1.8-2.4) mg/dL 03/13/21 03/13/21 03/14/21 Range/Units 17:09 18:05 00:06 WBC (4.23-9.07) K/mm3 RBC (4.63-6.08) M/mm3 Hgb (13.7-17.5) gm/dl Hct (40.1-51.0) % MCV (79.0-92.2) fl MCH (25.7-32.2) pg MCHC (32.2-35.5) g/dl RDW Std Deviation (35.1-43.9) fL Plt Count (163-337) K/mm3 MPV (9.4-12.3) fl Neut % (Auto) (34.0-67.9) % Lymph % (Auto) (21.8-53.1) % Greene % (Auto) (5.3-12.2) % Eos % (Auto) (0.8-7.0) Baso % (Auto) (0.1-1.2) % Neut # (Auto) (1.78-5.38) K/mm3 Lymph # (Auto) (1.32-3.57) K/mm3 Greene # (Auto) (0.30-0.82) K/mm3 Eos # (Auto) (0.04-0.54) K/mm3 Baso # (Auto) (0.01-0.08) K/mm3 Manual Slide Review Sodium (136-145) mEq/L Potassium (3.5-5.1) mEq/L Chloride (98-107) mEq/L Carbon Dioxide (21-32) mEq/L Anion Gap (5-15) BUN (7-18) mg/dL Creatinine (0.7-1.3) mg/dL Est Cr Clr Drug Dosing mL/min Estimated GFR (MDRD) (>60) mL/min BUN/Creatinine Ratio (14-18) Glucose (70-99) mg/dL POC Glucose 85 91 (70-99) mg/dL Lactic Acid 0.8 (0.4-2.0) mmol/L Calcium (8.5-10.1) mg/dL Phosphorus (2.6-4.7) mg/dL Magnesium (1.8-2.4) mg/dL 03/14/21 03/14/21 03/14/21 Range/Units 05:16 05:16 05:37 WBC 6.56 (4.23-9.07) K/mm3 RBC 4.09 L (4.63-6.08) M/mm3 Hgb 11.5 L D (13.7-17.5) gm/dl Hct 38.2 L (40.1-51.0) % MCV 93.4 H (79.0-92.2) fl MCH 28.1 (25.7-32.2) pg MCHC 30.1 L (32.2-35.5) g/dl RDW Std Deviation 45.3 H (35.1-43.9) fL Plt Count 189 (163-337) K/mm3 MPV 9.7 (9.4-12.3) fl Neut % (Auto) 66.0 (34.0-67.9) % Lymph % (Auto) 15.2 L (21.8-53.1) % Greene % (Auto) 14.6 H (5.3-12.2) % Eos % (Auto) 3.8 (0.8-7.0) Baso % (Auto) 0.2 (0.1-1.2) % Neut # (Auto) 4.33 (1.78-5.38) K/mm3 Lymph # (Auto) 1.00 L (1.32-3.57) K/mm3 Greene # (Auto) 0.96 H (0.30-0.82) K/mm3 Eos # (Auto) 0.25 (0.04-0.54) K/mm3 Baso # (Auto) 0.01 (0.01-0.08) K/mm3 Manual Slide Review Sodium 144 (136-145) mEq/L Potassium 4.1 (3.5-5.1) mEq/L Chloride 110 H (98-107) mEq/L Carbon Dioxide 24 (21-32) mEq/L Anion Gap 14.1 (5-15) BUN 29 H (7-18) mg/dL Creatinine 1.3 (0.7-1.3) mg/dL Est Cr Clr Drug Dosing 36.13 mL/min Estimated GFR (MDRD) 52 (>60) mL/min BUN/Creatinine Ratio 22.3 H (14-18) Glucose 102 H (70-99) mg/dL POC Glucose 97 (70-99) mg/dL Lactic Acid (0.4-2.0) mmol/L Calcium 8.0 L (8.5-10.1) mg/dL Phosphorus 2.3 L (2.6-4.7) mg/dL Magnesium 2.0 (1.8-2.4) mg/dL Result Diagrams: 03/14/21 05:16 03/14/21 05:16 Sepsis Event Note - Evaluation Sepsis Screening Result: No Definite Risk - Focused Exam Vital Signs: Vital Signs Temp Pulse Resp BP Pulse Ox Pulse Ox 03/14/21 05:35 99.0 F 60 17 114/59 L 95 03/14/21 02:33 98.1 F 66 19 109/70 96 03/14/21 02:32 66 109/70 03/14/21 00:03 98.4 F 67 20 120/98 H 94 L 03/13/21 20:50 70 116/83 03/13/21 20:08 68 115/72 93 L 03/13/21 20:07 97.9 F 68 18 93 L 03/13/21 19:46 95 - Problem List Review Problem List Initiated/Reviewed/Updated: No - My Orders Last 24 Hours: My Active Orders 03/13/21 09:00 Enoxaparin [Lovenox] 40 mg SUBCUT DAILY 03/13/21 12:00 Insulin Lispro [HumaLOG] 0 unit SUBCUT Q6H 03/13/21 18:45 D5 1/2 NS w/ 20 mEq/L KCl 1,000 ml IV ASDIRECTED 03/13/21 21:00 Metoprolol Tartrate [Lopressor] 5 mg IVPUSH Q6H 03/14/21 07:30 Sodium Phosphate 30 mmole Sodium Chloride 0.9% [Normal Saline] 250 ml IV ONETIME 03/14/21 07:39 Abdomen 1V Upright [CR] Routine 03/14/21 16:13 LACTIC ACID [CHEM] DAILY 03/15/21 05:11 BASIC METABOLIC PANEL,BMP [CHEM] AM CBC WITH AUTO DIFF [HEME] AM MAGNESIUM [CHEM] AM PHOSPHORUS [CHEM] AM 03/16/21 05:11 BASIC METABOLIC PANEL,BMP [CHEM] AM CBC WITH AUTO DIFF [HEME] AM MAGNESIUM [CHEM] AM PHOSPHORUS [CHEM] AM 03/17/21 05:11 BASIC METABOLIC PANEL,BMP [CHEM] AM CBC WITH AUTO DIFF [HEME] AM MAGNESIUM [CHEM] AM PHOSPHORUS [CHEM] AM - Assessment Assessment:: HD2 for SBO. Patient is improving. Passed some flatus, NGT output is down, abdominal distention is gone - Plan Plan:: - patient is making progress - we will do gastrografin study today. Administer gastrografin per NGT, clamp NGT (unclamp if pt becomes nauseated) and take an abd xray 8 hrs afterwards to see the progression of contrast - Replete Phos - Creat now normal - Continue NPO, NGT, IVF - Encourage ambulation
[2021-03-14] MEDS ORDERED: Sodium Phosphate 30 MMOLE in Sodium Chloride 0.9% 250 ML IV ONE (08:00)
[2021-03-14] MEDS ORDERED: Diatrizoate Meglumine/Diatrizoate Sodium 37% 120 ML Bottle NGTUBE ONE (08:38)
[2021-03-14] MEDS: Enoxaparin 40 MG/0.4 ML Syringe SUBCUT SCH (09:34)
[2021-03-14] MEDS: Pantoprazole 40 MG Vial IV SCH (09:34)
[2021-03-14] MEDS: D5 1/2 NS w/ 20 mEq/L KCl 1,000 ML IV SCH (13:36)
[2021-03-14] MEDS ORDERED: Orphenadrine 100 MG Tab.ER PO PRN (16:48)
--- NOTE | 2021-03-14 16:48 | PCM.SN.2 ---
- Free Text/Narrative Note: I reviewed the Xray. Contrast is in the colon. I spoke to the RN, patient is stable and having bowel function now. Plan - Will remove NGT - Start CLD - Resume natali meds - Continue IVF at 50 cc/hr for now.
--- NOTE | 2021-03-14 17:09 | CR ---
Abdomen: Supine and upright views of the abdomen were obtained. Comparison: Prior abdominal x-ray of 03/12/[address] study also performed on 03/12/21. Contrast is noted within the colon. Bowel gas pattern is felt to be within normal limits. Nasogastric tube is seen with tip lying within the proximal stomach. Side-port lies above the gastroesophageal junction. Surgical clip is seen from prior cholecystectomy. Slight degenerative change is scattered within the spine with scoliosis. Impression: 1. Scattered contrast within the colon. 2. Bowel gas pattern currently appears within normal limits. 3. Nasogastric tube is seen. Tip lies within the stomach but side-port lies above the gastroesophageal junction. Diagnostic code #3
[2021-03-14] MEDS: Metoprolol Succinate 25 MG Tab.ER PO SCH (17:20)
[2021-03-14] MEDS: Lisinopril 5 MG Tab PO SCH (17:20)
[2021-03-14] MEDS: Aspirin 81 MG Tab.Chew PO SCH (17:20)
[2021-03-14] MEDS: Tamsulosin 0.4 MG Cap.ER PO SCH (17:21)
[2021-03-14] MEDS: metFORMIN 500 MG Tab PO SCH (17:29)
[2021-03-14] MEDS ORDERED: Pantoprazole 40 MG Tab.CR PO SCH (21:00)
[2021-03-14] MEDS ORDERED: Simvastatin 40 MG Tab PO SCH (21:00)
[2021-03-15] MEDS: Insulin Lispro 100 Unit/ML 3 ML KwikPen SUBCUT SCH ×3 (00:28→13:01)
[2021-03-15] MEDS: D5 1/2 NS w/ 20 mEq/L KCl 1,000 ML IV SCH (04:16)
--- NOTE | 2021-03-15 07:35 | PCM.PN ---
- General Info Date of Service: 03/15/21 Admission Dx/Problem (Free Text): Admission Diagnosis/Problem Admission Diagnosis/Problem Small bowel obstruction Subjective Update: Patient is feeling well. No nausea or vomiting over the past 24 hrs. He has had multiple bowel movements and passing flatus. abdominal pain has resolved Functional Status: Reports: Pain Controlled, Tolerating Diet, Ambulating, Urinating - Review of Systems General: Reports: No Symptoms HEENT: Reports: No Symptoms Pulmonary: Reports: No Symptoms Cardiovascular: Reports: No Symptoms Gastrointestinal: Reports: No Symptoms Genitourinary: Reports: No Symptoms Musculoskeletal: Reports: No Symptoms - Patient Data Vitals - Most Recent: Last Vital Signs Temp 97.2 F 03/15/21 04:21 Pulse 59 L 03/15/21 04:21 Resp 18 03/15/21 04:21 BP 106/56 L 03/15/21 04:21 Pulse Ox 92 L 03/15/21 04:21 Weight - Most Recent: 86.273 kg I&O - Last 24 Hours: Intake & Output 03/14/21 03/15/21 03/15/21 22:59 06:59 14:59 Intake Total 2182 1000 Output Total 550 700 Balance 1632 300 Lab Results Last 24 Hours: Laboratory Results - last 24 hr 03/14/21 03/14/21 03/14/21 Range/Units 11:50 16:18 17:29 Sodium (136-145) mEq/L Potassium (3.5-5.1) mEq/L Chloride (98-107) mEq/L Carbon Dioxide (21-32) mEq/L Anion Gap (5-15) BUN (7-18) mg/dL Creatinine (0.7-1.3) mg/dL Est Cr Clr Drug Dosing mL/min Estimated GFR (MDRD) (>60) mL/min BUN/Creatinine Ratio (14-18) Glucose (70-99) mg/dL POC Glucose 105 H 92 (70-99) mg/dL Lactic Acid 0.9 (0.4-2.0) mmol/L Calcium (8.5-10.1) mg/dL Phosphorus (2.6-4.7) mg/dL Magnesium (1.8-2.4) mg/dL 03/15/21 03/15/21 03/15/21 Range/Units 00:15 04:56 06:12 Sodium 144 (136-145) mEq/L Potassium 3.6 (3.5-5.1) mEq/L Chloride 110 H (98-107) mEq/L Carbon Dioxide 24 (21-32) mEq/L Anion Gap 13.6 (5-15) BUN 20 H (7-18) mg/dL Creatinine 1.2 (0.7-1.3) mg/dL Est Cr Clr Drug Dosing 39.14 mL/min Estimated GFR (MDRD) 57 (>60) mL/min BUN/Creatinine Ratio 16.7 (14-18) Glucose 117 H (70-99) mg/dL POC Glucose 95 105 H (70-99) mg/dL Lactic Acid (0.4-2.0) mmol/L Calcium 8.2 L (8.5-10.1) mg/dL Phosphorus 2.8 (2.6-4.7) mg/dL Magnesium 1.9 (1.8-2.4) mg/dL Med Orders - Current: Current Medications Allopurinol (Allopurinol 100 Mg Tab) 100 mg PO DAILY [facility] Alogliptin Benzoate (Alogliptin 12.5 Mg Tab) 12.5 mg PO DAILY [facility] Last Admin: 03/14/21 17:20 Dose: 12.5 mg Documented by: Aspirin (Aspirin 81 Mg Tab.Chew) 81 mg PO DAILY [facility] Last Admin: 03/14/21 17:20 Dose: 81 mg Documented by: Enoxaparin Sodium (Enoxaparin 40 Mg/0.4 Ml Syringe) 40 mg SUBCUT DAILY [facility] Last Admin: 03/14/21 09:34 Dose: 40 mg Documented by: Potassium Chloride/Dextrose/Sod Cl (D5 1/2 Ns W/ 20 Meq/L Kcl) 1,000 mls @ 75 mls/hr IV ASDIRECTED [facility] Last Admin: 03/15/21 04:16 Dose: 75 mls/hr Documented by: Insulin Human Lispro (Insulin Lispro 100 Unit/Ml 3 Ml Kwikpen) 0 unit SUBCUT Q6H [facility]; Protocol Last Admin: 03/15/21 07:17 Dose: Not Given Documented by: Lisinopril (Lisinopril 5 Mg Tab) 5 mg PO DAILY [facility] Last Admin: 03/14/21 17:20 Dose: 5 mg Documented by: Metformin HCl (Metformin 500 Mg Tab) 500 mg PO DAILY [facility] Last Admin: 03/14/21 17:29 Dose: 500 mg Documented by: Metoclopramide HCl (Metoclopramide 10 Mg/2 Ml Sdv) 5 mg IVPUSH Q6H PRN PRN Reason: Nausea/Vomiting Metoprolol Succinate (Metoprolol Succinate 25 Mg Tab.Er) 25 mg PO DAILY [facility] Last Admin: 03/14/21 17:20 Dose: 25 mg Documented by: Ondansetron HCl (Ondansetron 4 Mg/2 Ml Sdv) 4 mg IV Q4H PRN PRN Reason: Nausea/Vomiting Orphenadrine Citrate (Orphenadrine 100 Mg Tab.Er) 100 mg PO BID PRN PRN Reason: Spasms Pantoprazole Sodium (Pantoprazole 40 Mg Tab.Cr) 40 mg PO BEDTIME [facility] Last Admin: 03/14/21 20:21 Dose: 40 mg Documented by: Simvastatin (Simvastatin 40 Mg Tab) 40 mg PO BEDTIME [facility] Last Admin: 03/14/21 20:21 Dose: 40 mg Documented by: Sodium Chloride (Sodium Chloride 0.9% 10 Ml Syringe) 10 ml FLUSH ASDIRECTED PRN PRN Reason: Keep Vein Open Last Admin: 03/12/21 09:10 Dose: 10 ml Documented by: Tamsulosin HCl (Tamsulosin 0.4 Mg Cap.Er) 0.4 mg PO DAILY [facility] Last Admin: 03/14/21 17:21 Dose: 0.4 mg Documented by: Discontinued Medications Diatrizoate Meglum/Diatrizoate Sod (Diatrizoate Meglumine/Diatrizoate Sodium 37% 120 Ml Bottle) 240 ml NGTUBE ONETIME ONE Stop: 03/14/21 08:39 Last Admin: 03/14/21 09:00 Dose: 240 ml Documented by: Hydromorphone HCl (Hydromorphone 0.5 Mg/0.5 Ml Syringe) 0.5 mg IVPUSH ONETIME ONE Stop: 03/12/21 08:46 Last Admin: 03/12/21 09:09 Dose: 0.5 mg Documented by: Hydromorphone HCl (Hydromorphone 0.5 Mg/0.5 Ml Syringe) 0.5 mg IVPUSH ONETIME ONE Stop: 03/12/21 11:18 Last Admin: 03/12/21 12:32 Dose: 0.5 mg Documented by: Hydromorphone HCl (Hydromorphone 0.5 Mg/0.5 Ml Syringe) 0.5 mg IVPUSH Q4H PRN PRN Reason: Pain (severe 7-10) Sodium Chloride (Normal Saline) 1,000 mls @ 999 mls/hr IV Q1H [facility] Stop: 03/12/21 09:29 Last Admin: 03/12/21 23:05 Dose: Not Given Documented by: Sodium Chloride (Normal Saline) 1,000 mls @ 250 mls/hr IV ASDIRECTED [facility] Last Admin: 03/12/21 09:09 Dose: 250 mls/hr Documented by: Sodium Chloride (Normal Saline) 100 mls @ 60 mls/hr IV ASDIRECTED [facility] Last Admin: 03/12/21 10:38 Dose: 60 mls/hr Documented by: Sodium Chloride (Normal Saline) 1,000 mls @ 150 mls/hr IV ASDIRECTED [facility] Last Admin: 03/13/21 11:16 Dose: 125 mls/hr Documented by: Sodium Chloride (Normal Saline) 1,000 mls @ 500 mls/hr IV ONETIME ONE Stop: 03/12/21 18:42 Last Admin: 03/12/21 17:00 Dose: 500 mls/hr Documented by: Sodium Chloride (Normal Saline) 1,000 mls @ 50 mls/hr IV ASDIRECTED [facility] Sodium Phosphate 30 mmole/ (Sodium Chloride) 260 mls @ 86.667 mls/hr IV ONETIME ONE Stop: 03/14/21 10:59 Last Admin: 03/14/21 09:33 Dose: 86.667 mls/hr Documented by: Insulin Human Lispro (Insulin Lispro 100 Unit/Ml 3 Ml Kwikpen) 0 unit SUBCUT Q6H [facility]; Protocol Last Admin: 03/13/21 06:30 Dose: Not Given Documented by: Iopamidol (Iopamidol 612 Mg/Ml 100 Ml Bottle) 100 ml IVPUSH ONETIME ONE Stop: 03/12/21 10:37 Last Admin: 03/12/21 10:38 Dose: 100 ml Documented by: Metoprolol Tartrate (Metoprolol Tartrate 5 Mg/5 Ml Sdv) 5 mg IVPUSH Q6H [facility] Last Admin: 03/14/21 16:47 Dose: Not Given Documented by: Ondansetron HCl (Ondansetron 4 Mg/2 Ml Sdv) 4 mg IVPUSH ONETIME ONE Stop: 03/12/21 08:24 Last Admin: 03/12/21 09:09 Dose: 4 mg Documented by: Pantoprazole Sodium (Pantoprazole 40 Mg Vial) 40 mg IV Q12HR [facility] Last Admin: 03/14/21 09:34 Dose: 40 mg Documented by: Sodium Chloride (Sodium Chloride 0.9% 10 Ml Syringe) 10 ml FLUSH ONETIME ONE Stop: 03/12/21 10:37 Last Admin: 03/12/21 10:38 Dose: 10 ml Documented by: - Exam General: Alert, Oriented, Cooperative Lungs: Clear to Auscultation, Normal Respiratory Effort Cardiovascular: Regular Rate, Regular Rhythm GI/Abdominal Exam: Soft, Non-Tender, No Organomegaly, No Distention - Patient Data Lab Results Last 24 hrs: Laboratory Results - last 24 hr 03/14/21 03/14/21 03/14/21 Range/Units 11:50 16:18 17:29 Sodium (136-145) mEq/L Potassium (3.5-5.1) mEq/L Chloride (98-107) mEq/L Carbon Dioxide (21-32) mEq/L Anion Gap (5-15) BUN (7-18) mg/dL Creatinine (0.7-1.3) mg/dL Est Cr Clr Drug Dosing mL/min Estimated GFR (MDRD) (>60) mL/min BUN/Creatinine Ratio (14-18) Glucose (70-99) mg/dL POC Glucose 105 H 92 (70-99) mg/dL Lactic Acid 0.9 (0.4-2.0) mmol/L Calcium (8.5-10.1) mg/dL Phosphorus (2.6-4.7) mg/dL Magnesium (1.8-2.4) mg/dL 03/15/21 03/15/21 03/15/21 Range/Units 00:15 04:56 06:12 Sodium 144 (136-145) mEq/L Potassium 3.6 (3.5-5.1) mEq/L Chloride 110 H (98-107) mEq/L Carbon Dioxide 24 (21-32) mEq/L Anion Gap 13.6 (5-15) BUN 20 H (7-18) mg/dL Creatinine 1.2 (0.7-1.3) mg/dL Est Cr Clr Drug Dosing 39.14 mL/min Estimated GFR (MDRD) 57 (>60) mL/min BUN/Creatinine Ratio 16.7 (14-18) Glucose 117 H (70-99) mg/dL POC Glucose 95 105 H (70-99) mg/dL Lactic Acid (0.4-2.0) mmol/L Calcium 8.2 L (8.5-10.1) mg/dL Phosphorus 2.8 (2.6-4.7) mg/dL Magnesium 1.9 (1.8-2.4) mg/dL Result Diagrams: 03/14/21 05:16 03/15/21 04:56 Sepsis Event Note - Evaluation Sepsis Screening Result: No Definite Risk - Focused Exam Vital Signs: Vital Signs Temp Pulse Resp BP Pulse Ox Pulse Ox Pulse Ox 03/15/21 04:21 97.2 F 59 L 18 106/56 L 92 L 03/15/21 00:18 97.3 F 59 L 17 114/64 92 L 03/14/21 20:24 98.1 F 62 16 108/56 L 92 L 03/14/21 19:54 92 L 03/14/21 19:33 93 L - Problem List Review Problem List Initiated/Reviewed/Updated: No - My Orders Last 24 Hours: My Active Orders 03/14/21 16:48 Orphenadrine [Norflex] 100 mg PO BID PRN 03/14/21 Dinner Clear Liquid Diet [DIET] Alogliptin Benzoate [Alogliptin] 12.5 mg PO DAILY Aspirin 81 mg PO DAILY Metoprolol Succinate [Toprol XL] 25 mg PO DAILY Tamsulosin [Flomax] 0.4 mg PO DAILY lisinopriL [Prinivil] 5 mg PO DAILY metFORMIN [Glucophage] 500 mg PO DAILY 03/14/21 17:02 Nasogastric Orogastric Tube Removal [OM.PC] Routine 03/14/21 21:00 Pantoprazole [ProTONIX] 40 mg PO BEDTIME Simvastatin [Zocor] 40 mg PO BEDTIME 03/15/21 09:00 allopurinoL [Zyloprim] 100 mg PO DAILY 03/16/21 05:11 BASIC METABOLIC PANEL,BMP [CHEM] AM MAGNESIUM [CHEM] AM PHOSPHORUS [CHEM] AM 03/17/21 05:11 BASIC METABOLIC PANEL,BMP [CHEM] AM MAGNESIUM [CHEM] AM PHOSPHORUS [CHEM] AM - Assessment Assessment:: HD3 for SBO. This has now resolved as the patient has return of bowel function and resolution of nausea and vomiting. - Plan Plan:: - regular diet - dc IVF - continue ambulation Plan: if tolerates regular diet for breakfast and lunch then the patient will be discharged to home today.
--- NOTE | 2021-03-15 07:38 | PCM.DCSUM1 ---
Discharge Summary - Hospital Course Free Text/Narrative:: Patient presented with SBO causing UMANG. He was treated expectantly with NPO, IVF, rehydration. UMANG resolved and patient has return of bowel function. He will be discharged to home. Diagnosis: Stroke: No - Discharge Data Discharge Date: 03/15/21 Discharge Disposition: Home, Self-Care 01 Condition: Good - Referral to Home Health Primary Care Physician: Damon Neely MD - Patient Instructions Diet: Heart Healthy Diet Activity: As Tolerated Driving: May Drive Today Showering/Bathing: May Shower Notify Provider of: Fever, Increased Pain, Nausea and/or Vomiting - Discharge Plan *PRESCRIPTION DRUG MONITORING PROGRAM REVIEWED*: Not Applicable *COPY OF PRESCRIPTION DRUG MONITORING REPORT IN PATIENT BRENNEN: Not Applicable Home Medications: Home Meds Omeprazole 20 mg PO BEDTIME 05/21/15 [History] Simvastatin [Zocor] 40 mg PO BEDTIME 05/21/15 [History] Tamsulosin [Flomax] 0.4 mg PO DAILY 04/29/18 [History] Alogliptin Benzoate [Alogliptin] 12.5 mg PO DAILY 06/14/19 [History] Cholecalciferol (Vitamin D3) [Vitamin D3] 5,000 unit PO BEDTIME 06/14/19 [History] allopurinoL [Zyloprim] 100 mg PO DAILY 06/14/19 [History] lisinopriL [Zestril] 5 mg PO DAILY 06/14/19 [History] metFORMIN [Glucophage] 500 mg PO DAILY 06/14/19 [History] Metoprolol Succinate [Toprol XL 50mg] 25 mg PO DAILY 06/15/19 [History] Aspirin [Children's Aspirin] 81 mg PO DAILY 09/09/19 [History] Orphenadrine [Norflex] 100 mg PO BID PRN #20 tab 09/09/19 [Rx] predniSONE 20 mg PO ASDIRECTED #15 tab 09/09/19 [Rx] Hydrocodone/Acetaminophen [HYDROcodone-Acetaminophen 5-325 MG] 1 each PO Q6H #20 tablet 09/10/19 [Rx] Oxygen Therapy Mode: Room Air Patient Handouts: Bowel Obstruction, [id number] Forms: ED Department Discharge Referrals: Damon Sorto MD [Primary Care Provider] - (Follow up as needed) Tameka Lopez MD [Physician] - (PRN) - Discharge Summary/Plan Comment DC Time >30 min.: No Total # of Minutes for Discharge Time: 25 - Patient Data Vitals - Most Recent: Last Vital Signs Temp 97.2 F 03/15/21 04:21 Pulse 59 L 03/15/21 04:21 Resp 18 03/15/21 04:21 BP 106/56 L 03/15/21 04:21 Pulse Ox 92 L 03/15/21 04:21 Weight - Most Recent: 86.273 kg I&O - Last 24 hours: Intake & Output 03/14/21 03/15/21 03/15/21 22:59 06:59 14:59 Intake Total 2182 1000 Output Total 550 700 Balance 1632 300 Lab Results - Last 24 hrs: Laboratory Results - last 24 hr 03/14/21 03/14/21 03/14/21 Range/Units 11:50 16:18 17:29 Sodium (136-145) mEq/L Potassium (3.5-5.1) mEq/L Chloride (98-107) mEq/L Carbon Dioxide (21-32) mEq/L Anion Gap (5-15) BUN (7-18) mg/dL Creatinine (0.7-1.3) mg/dL Est Cr Clr Drug Dosing mL/min Estimated GFR (MDRD) (>60) mL/min BUN/Creatinine Ratio (14-18) Glucose (70-99) mg/dL POC Glucose 105 H 92 (70-99) mg/dL Lactic Acid 0.9 (0.4-2.0) mmol/L Calcium (8.5-10.1) mg/dL Phosphorus (2.6-4.7) mg/dL Magnesium (1.8-2.4) mg/dL 03/15/21 03/15/21 03/15/21 Range/Units 00:15 04:56 06:12 Sodium 144 (136-145) mEq/L Potassium 3.6 (3.5-5.1) mEq/L Chloride 110 H (98-107) mEq/L Carbon Dioxide 24 (21-32) mEq/L Anion Gap 13.6 (5-15) BUN 20 H (7-18) mg/dL Creatinine 1.2 (0.7-1.3) mg/dL Est Cr Clr Drug Dosing 39.14 mL/min Estimated GFR (MDRD) 57 (>60) mL/min BUN/Creatinine Ratio 16.7 (14-18) Glucose 117 H (70-99) mg/dL POC Glucose 95 105 H (70-99) mg/dL Lactic Acid (0.4-2.0) mmol/L Calcium 8.2 L (8.5-10.1) mg/dL Phosphorus 2.8 (2.6-4.7) mg/dL Magnesium 1.9 (1.8-2.4) mg/dL Med Orders - Current: Current Medications Allopurinol (Allopurinol 100 Mg Tab) 100 mg PO DAILY [facility] Alogliptin Benzoate (Alogliptin 12.5 Mg Tab) 12.5 mg PO DAILY [facility] Last Admin: 03/14/21 17:20 Dose: 12.5 mg Documented by: Aspirin (Aspirin 81 Mg Tab.Chew) 81 mg PO DAILY [facility] Last Admin: 03/14/21 17:20 Dose: 81 mg Documented by: Enoxaparin Sodium (Enoxaparin 40 Mg/0.4 Ml Syringe) 40 mg SUBCUT DAILY [facility] Last Admin: 03/14/21 09:34 Dose: 40 mg Documented by: Potassium Chloride/Dextrose/Sod Cl (D5 1/2 Ns W/ 20 Meq/L Kcl) 1,000 mls @ 75 mls/hr IV ASDIRECTED [facility] Last Admin: 03/15/21 04:16 Dose: 75 mls/hr Documented by: Insulin Human Lispro (Insulin Lispro 100 Unit/Ml 3 Ml Kwikpen) 0 unit SUBCUT Q6H [facility]; Protocol Last Admin: 03/15/21 07:17 Dose: Not Given Documented by: Lisinopril (Lisinopril 5 Mg Tab) 5 mg PO DAILY [facility] Last Admin: 03/14/21 17:20 Dose: 5 mg Documented by: Metformin HCl (Metformin 500 Mg Tab) 500 mg PO DAILY [facility] Last Admin: 03/14/21 17:29 Dose: 500 mg Documented by: Metoclopramide HCl (Metoclopramide 10 Mg/2 Ml Sdv) 5 mg IVPUSH Q6H PRN PRN Reason: Nausea/Vomiting Metoprolol Succinate (Metoprolol Succinate 25 Mg Tab.Er) 25 mg PO DAILY [facility] Last Admin: 03/14/21 17:20 Dose: 25 mg Documented by: Ondansetron HCl (Ondansetron 4 Mg/2 Ml Sdv) 4 mg IV Q4H PRN PRN Reason: Nausea/Vomiting Orphenadrine Citrate (Orphenadrine 100 Mg Tab.Er) 100 mg PO BID PRN PRN Reason: Spasms Pantoprazole Sodium (Pantoprazole 40 Mg Tab.Cr) 40 mg PO BEDTIME [facility] Last Admin: 03/14/21 20:21 Dose: 40 mg Documented by: Simvastatin (Simvastatin 40 Mg Tab) 40 mg PO BEDTIME [facility] Last Admin: 03/14/21 20:21 Dose: 40 mg Documented by: Sodium Chloride (Sodium Chloride 0.9% 10 Ml Syringe) 10 ml FLUSH ASDIRECTED PRN PRN Reason: Keep Vein Open Last Admin: 03/12/21 09:10 Dose: 10 ml Documented by: Tamsulosin HCl (Tamsulosin 0.4 Mg Cap.Er) 0.4 mg PO DAILY [facility] Last Admin: 03/14/21 17:21 Dose: 0.4 mg Documented by: Discontinued Medications Diatrizoate Meglum/Diatrizoate Sod (Diatrizoate Meglumine/Diatrizoate Sodium 37% 120 Ml Bottle) 240 ml NGTUBE ONETIME ONE Stop: 03/14/21 08:39 Last Admin: 03/14/21 09:00 Dose: 240 ml Documented by: Hydromorphone HCl (Hydromorphone 0.5 Mg/0.5 Ml Syringe) 0.5 mg IVPUSH ONETIME ONE Stop: 03/12/21 08:46 Last Admin: 03/12/21 09:09 Dose: 0.5 mg Documented by: Hydromorphone HCl (Hydromorphone 0.5 Mg/0.5 Ml Syringe) 0.5 mg IVPUSH ONETIME ONE Stop: 03/12/21 11:18 Last Admin: 03/12/21 12:32 Dose: 0.5 mg Documented by: Hydromorphone HCl (Hydromorphone 0.5 Mg/0.5 Ml Syringe) 0.5 mg IVPUSH Q4H PRN PRN Reason: Pain (severe 7-10) Sodium Chloride (Normal Saline) 1,000 mls @ 999 mls/hr IV Q1H [facility] Stop: 03/12/21 09:29 Last Admin: 03/12/21 23:05 Dose: Not Given Documented by: Sodium Chloride (Normal Saline) 1,000 mls @ 250 mls/hr IV ASDIRECTED [facility] Last Admin: 03/12/21 09:09 Dose: 250 mls/hr Documented by: Sodium Chloride (Normal Saline) 100 mls @ 60 mls/hr IV ASDIRECTED [facility] Last Admin: 03/12/21 10:38 Dose: 60 mls/hr Documented by: Sodium Chloride (Normal Saline) 1,000 mls @ 150 mls/hr IV ASDIRECTED [facility] Last Admin: 03/13/21 11:16 Dose: 125 mls/hr Documented by: Sodium Chloride (Normal Saline) 1,000 mls @ 500 mls/hr IV ONETIME ONE Stop: 03/12/21 18:42 Last Admin: 03/12/21 17:00 Dose: 500 mls/hr Documented by: Sodium Chloride (Normal Saline) 1,000 mls @ 50 mls/hr IV ASDIRECTED [facility] Sodium Phosphate 30 mmole/ (Sodium Chloride) 260 mls @ 86.667 mls/hr IV ONETIME ONE Stop: 03/14/21 10:59 Last Admin: 03/14/21 09:33 Dose: 86.667 mls/hr Documented by: Insulin Human Lispro (Insulin Lispro 100 Unit/Ml 3 Ml Kwikpen) 0 unit SUBCUT Q6H [facility]; Protocol Last Admin: 03/13/21 06:30 Dose: Not Given Documented by: Iopamidol (Iopamidol 612 Mg/Ml 100 Ml Bottle) 100 ml IVPUSH ONETIME ONE Stop: 03/12/21 10:37 Last Admin: 03/12/21 10:38 Dose: 100 ml Documented by: Metoprolol Tartrate (Metoprolol Tartrate 5 Mg/5 Ml Sdv) 5 mg IVPUSH Q6H [facility] Last Admin: 03/14/21 16:47 Dose: Not Given Documented by: Ondansetron HCl (Ondansetron 4 Mg/2 Ml Sdv) 4 mg IVPUSH ONETIME ONE Stop: 03/12/21 08:24 Last Admin: 03/12/21 09:09 Dose: 4 mg Documented by: Pantoprazole Sodium (Pantoprazole 40 Mg Vial) 40 mg IV Q12HR [facility] Last Admin: 03/14/21 09:34 Dose: 40 mg Documented by: Sodium Chloride (Sodium Chloride 0.9% 10 Ml Syringe) 10 ml FLUSH ONETIME ONE Stop: 03/12/21 10:37 Last Admin: 03/12/21 10:38 Dose: 10 ml Documented by:
[2021-03-15] MEDS ORDERED: Allopurinol 100 MG Tab PO SCH (09:00)
[2021-03-15] MEDS: Aspirin 81 MG Tab.Chew PO SCH (09:07)
[2021-03-15] MEDS: Lisinopril 5 MG Tab PO SCH (09:07)
[2021-03-15] MEDS: Tamsulosin 0.4 MG Cap.ER PO SCH (09:07)
[2021-03-15] MEDS: metFORMIN 500 MG Tab PO SCH (09:08)
[2021-03-15] MEDS: Enoxaparin 40 MG/0.4 ML Syringe SUBCUT SCH (09:09)
[2021-03-15] MEDS: Metoprolol Succinate 25 MG Tab.ER PO SCH (09:58)
[2021-03-15 11:46] VITALS: BP 107/58; PULSE 60
== END 2021-03-15 12:51 | disposition home or self-care (01) | DRG 389 ==
LOC: JD.ED 07:59 → JD.MS 12:09
PROVIDERS: ADMIT Surgery; ATTEND Surgery
DX: K56.609 Unspecified intestinal obstruction, unspecified as to partial versus complete obstruction (principal); K56.50 Intestinal adhesions [bands], unspecified as to partial versus complete obstruction; N17.9 Acute kidney failure, unspecified; I10 Essential (primary) hypertension; I25.10 Atherosclerotic heart disease of native coronary artery without angina pectoris; E78.00 Pure hypercholesterolemia, unspecified; E11.9 Type 2 diabetes mellitus without complications; K59.09 Other constipation; Z85.51 Personal history of malignant neoplasm of bladder; Z85.828 Personal history of other malignant neoplasm of skin; M54.9 Dorsalgia, unspecified; Z79.84 Long term (current) use of oral hypoglycemic drugs; M19.90 Unspecified osteoarthritis, unspecified site; E55.9 Vitamin D deficiency, unspecified; K21.9 Gastro-esophageal reflux disease without esophagitis; Z20.822 Contact with and (suspected) exposure to COVID-19; E66.9 Obesity, unspecified; G89.29 Other chronic pain; N40.0 Benign prostatic hyperplasia without lower urinary tract symptoms; Z96.659 Presence of unspecified artificial knee joint; Z88.5 Allergy status to narcotic agent; Z79.82 Long term (current) use of aspirin; Z79.52 Long term (current) use of systemic steroids; Z79.899 Other long term (current) drug therapy; Z87.891 Personal history of nicotine dependence; Z90.49 Acquired absence of other specified parts of digestive tract; Z98.49 Cataract extraction status, unspecified eye; Z87.442 Personal history of urinary calculi; Z68.30 Body mass index [BMI] 30.0-30.9, adult
CPT/HCPCS: 36415; 74019; 74177; 80053; 81001; 83690; 83735; 85025; 86140; 93005; 96374; 96375; 99285; J1170; J2405; J7030; Q9967; U0002; 74018; 74018-26; 80048; 82947; 83605; 84100; 84484; 94761; 94762; A9270-GY; C9113; J1650; J3480; J3490; J7050; Q9963

== ENCOUNTER 2022-10-19 09:37 | Inpatient (IN) | payer MEDICARE, BC ==
[2022-10-19] MEDS ORDERED: Sodium Chloride 0.9% 1,000 ML IV STA (10:32)
[2022-10-19] MEDS ORDERED: Ondansetron 4 MG/2 ML SDV IVPUSH ONE (10:32)
[2022-10-19] MEDS ORDERED: Sodium Chloride 0.9% 10 ML Syringe FLUSH PRN (10:32)
[2022-10-19] MEDS ORDERED: HYDROmorphone 0.5 MG/0.5 ML Syringe IVPUSH ONE (10:34)
[2022-10-19] MEDS ORDERED: Iopamidol 612 MG/ML 100 ML Bottle IVPUSH ONE (10:51)
[2022-10-19 11:42] LABS: BASOPHILS ABSOLUTE AUTO 0.01 K/mm3 (0.01-0.08); EOSINOPHILS ABSOLUTE AUTO 0.02 K/mm3 (0.04-0.54); EOSINOPHILS PERCENT AUTO 0.1 (0.8-7.0); HEMATOCRIT 46.9 % (40.1-51.0); IMMATURE GRAN ABSOLUTE AUTO 0.04 K/mm3 (0.00-0.10); IMMATURE GRAN PERCENT AUTO 0.2 % (<=1.0); LYMPHOCYTES ABSOLUTE AUTO 0.34 K/mm3 (1.32-3.57); LYMPHOCYTES PERCENT AUTO 1.7 % (21.8-53.1); MEAN CORPUSCULAR HEMOGLOBIN 29.5 pg (25.7-32.2); MEAN CORPUSCULAR HGB CONC 32.6 g/dl (32.2-35.5); MEAN CORPUSCULAR VOLUME 90.4 fl (79.0-92.2); MEAN PLATELET VOLUME 9.7 fl (9.4-12.3); MONOCYTES ABSOLUTE AUTO 1.48 K/mm3 (0.30-0.82); MONOCYTES PERCENT AUTO 7.3 % (5.3-12.2); NEUTROPHILS ABSOLUTE AUTO 18.49 K/mm3 (1.78-5.38); NEUTROPHILS PERCENT AUTO 90.7 % (34.0-67.9); PLATELET COUNT,PLT 173 K/mm3 (163-337); RED BLOOD CELL COUNT 5.19 M/mm3 (4.63-6.08); WHITE BLOOD CELL COUNT,WBC 20.38 K/mm3 (4.23-9.07)
[2022-10-19 11:43] LABS: APPEARANCE,URINE CLEAR (Clear); BILIRUBIN,URINE 2+ (Negative); COLOR,URINE DARK YELLOW (Yellow); GLUCOSE,URINE NEGATIVE (Negative); KETONES,URINE TRACE (Negative); LEUKOCYTE ESTERASE,URINE NEGATIVE (Negative); NITRITE,URINE NEGATIVE (Negative); OCCULT BLOOD,URINE NEGATIVE (Negative); PROTEIN,URINE 1+ (Negative); UROBILINOGEN,URINE 0.2 (0.2-1.0)
[2022-10-19 11:44] LABS: HEMOGLOBIN 15.3 gm/dl (13.7-17.5)
[2022-10-19 11:58] LABS: BACTERIA,URINE MODERATE /hpf (FEW); MUCUS,URINE MODERATE /hpf (FEW); RBC,URINE NOT SEEN /hpf (0-5); RENAL EPITHELIAL CELLS,URINE 0-5 /hpf (0-5); SQUAMOUS EPITHELIAL CELLS,UR 0-5 /hpf (0-5); WBC,URINE 0-5 /hpf (0-5)
[2022-10-19 12:02] LABS: ANION GAP 14.6 (5-15); BILIRUBIN TOTAL 0.9 mg/dL (0.2-1.0); BUN/CREATININE RATIO 19.5 (14-18); CALCIUM 10.3 mg/dL (8.5-10.1); EST CRCL DRUG DOSING (CG) 24.7 mL/min; POTASSIUM,K 4.6 mEq/L (3.5-5.1); PROTEIN TOTAL,TP 8.2 g/dl (6.4-8.2)
[2022-10-19 12:03] LABS: SLIDE REVIEW ABNORMAL SMEAR
[2022-10-19] MEDS ORDERED: HYDROmorphone 0.5 MG/0.5 ML Syringe IVPUSH PRN (14:18)
[2022-10-19] MEDS ORDERED: Ondansetron 4 MG/2 ML SDV IV PRN (14:18)
[2022-10-19] MEDS ORDERED: Acetaminophen 325 MG Tab PO PRN (14:18)
[2022-10-19] MEDS: Heparin Sodium 5,000 Units/ML Vial SUBCUT SCH ×2 (16:55→23:00)
[2022-10-19] MEDS: Dextrose 5%-0.45% NaCl 1,000 ML IV SCH (16:59)
[2022-10-19] MEDS: Insulin Lispro 100 Unit/ML 3 ML KwikPen SUBCUT SCH (18:47)
[2022-10-20] MEDS: Dextrose 5%-0.45% NaCl 1,000 ML IV SCH ×3 (00:54→19:23)
[2022-10-20] MEDS: Insulin Lispro 100 Unit/ML 3 ML KwikPen SUBCUT SCH ×5 (00:54→23:50)
[2022-10-20 05:19] LABS: BASOPHILS ABSOLUTE AUTO 0.01 K/mm3 (0.01-0.08); BASOPHILS PERCENT AUTO 0.1 % (0.1-1.2); EOSINOPHILS ABSOLUTE AUTO 0.11 K/mm3 (0.04-0.54); EOSINOPHILS PERCENT AUTO 1.3 (0.8-7.0); HEMATOCRIT 39.7 % (40.1-51.0); IMMATURE GRAN ABSOLUTE AUTO 0.01 K/mm3 (0.00-0.10); IMMATURE GRAN PERCENT AUTO 0.1 % (<=1.0); LYMPHOCYTES ABSOLUTE AUTO 0.76 K/mm3 (1.32-3.57); LYMPHOCYTES PERCENT AUTO 9.3 % (21.8-53.1); MEAN CORPUSCULAR HEMOGLOBIN 29.3 pg (25.7-32.2); MEAN CORPUSCULAR VOLUME 91.5 fl (79.0-92.2); MEAN PLATELET VOLUME 9.1 fl (9.4-12.3); MONOCYTES ABSOLUTE AUTO 1.49 K/mm3 (0.30-0.82); MONOCYTES PERCENT AUTO 18.1 % (5.3-12.2); NEUTROPHILS ABSOLUTE AUTO 5.83 K/mm3 (1.78-5.38); NEUTROPHILS PERCENT AUTO 71.1 % (34.0-67.9); PLATELET COUNT,PLT 174 K/mm3 (163-337); RED BLOOD CELL COUNT 4.34 M/mm3 (4.63-6.08); WHITE BLOOD CELL COUNT,WBC 8.21 K/mm3 (4.23-9.07)
[2022-10-20 05:23] LABS: HEMOGLOBIN 12.7 gm/dl (13.7-17.5)
[2022-10-20 05:35] LABS: ANION GAP 12.2 (5-15); BUN/CREATININE RATIO 24.1 (14-18); CREATININE 1.7 mg/dL (0.7-1.3); EST CRCL DRUG DOSING (CG) 27.1 mL/min; POTASSIUM,K 4.2 mEq/L (3.5-5.1)
[2022-10-20 05:43] LABS: CALCIUM 8.4 mg/dL (8.5-10.1)
[2022-10-20] MEDS: Heparin Sodium 5,000 Units/ML Vial SUBCUT SCH ×3 (06:20→23:24)
[2022-10-20] MEDS: Aspirin 81 MG Tab.Chew PO SCH (08:16)
[2022-10-20] MEDS: Metoprolol Succinate 25 MG Tab.ER PO SCH (08:16)
[2022-10-20] MEDS: Pantoprazole 40 MG Vial IVPUSH SCH (08:19)
[2022-10-21] MEDS: Dextrose 5%-0.45% NaCl 1,000 ML IV SCH ×2 (03:13→15:53)
[2022-10-21 06:18] LABS: BASOPHILS ABSOLUTE AUTO 0.02 K/mm3 (0.01-0.08); BASOPHILS PERCENT AUTO 0.3 % (0.1-1.2); EOSINOPHILS ABSOLUTE AUTO 0.31 K/mm3 (0.04-0.54); EOSINOPHILS PERCENT AUTO 4.7 (0.8-7.0); HEMATOCRIT 39.1 % (40.1-51.0); HEMOGLOBIN 12.5 gm/dl (13.7-17.5); IMMATURE GRAN ABSOLUTE AUTO 0.02 K/mm3 (0.00-0.10); IMMATURE GRAN PERCENT AUTO 0.3 % (<=1.0); LYMPHOCYTES ABSOLUTE AUTO 0.56 K/mm3 (1.32-3.57); LYMPHOCYTES PERCENT AUTO 8.5 % (21.8-53.1); MEAN CORPUSCULAR HEMOGLOBIN 29.3 pg (25.7-32.2); MEAN CORPUSCULAR VOLUME 91.6 fl (79.0-92.2); MEAN PLATELET VOLUME 9.1 fl (9.4-12.3); MONOCYTES ABSOLUTE AUTO 1.03 K/mm3 (0.30-0.82); MONOCYTES PERCENT AUTO 15.6 % (5.3-12.2); NEUTROPHILS ABSOLUTE AUTO 4.65 K/mm3 (1.78-5.38); NEUTROPHILS PERCENT AUTO 70.6 % (34.0-67.9); PLATELET COUNT,PLT 154 K/mm3 (163-337); RED BLOOD CELL COUNT 4.27 M/mm3 (4.63-6.08); WHITE BLOOD CELL COUNT,WBC 6.59 K/mm3 (4.23-9.07)
[2022-10-21] MEDS: Insulin Lispro 100 Unit/ML 3 ML KwikPen SUBCUT SCH ×3 (06:26→19:10)
[2022-10-21 06:48] LABS: BUN/CREATININE RATIO 20.8 (14-18); CALCIUM 8.4 mg/dL (8.5-10.1); CREATININE 1.3 mg/dL (0.7-1.3); EST CRCL DRUG DOSING (CG) 35.44 mL/min
[2022-10-21] MEDS: Heparin Sodium 5,000 Units/ML Vial SUBCUT SCH ×3 (07:25→22:33)
[2022-10-21] MEDS ORDERED: Benzocaine/Cetylpyridinium/Menthol Lozenge MUCMEM PRN (07:32)
[2022-10-21] MEDS: Metoprolol Succinate 25 MG Tab.ER PO SCH (09:13)
[2022-10-21] MEDS: Aspirin 81 MG Tab.Chew PO SCH (09:14)
[2022-10-21] MEDS: Pantoprazole 40 MG Vial IVPUSH SCH (09:14)
[2022-10-22] MEDS: Insulin Lispro 100 Unit/ML 3 ML KwikPen SUBCUT SCH ×4 (01:08→19:10)
[2022-10-22] MEDS: Dextrose 5%-0.45% NaCl 1,000 ML IV SCH (03:11)
[2022-10-22 06:18] LABS: BASOPHILS ABSOLUTE AUTO 0.01 K/mm3 (0.01-0.08); BASOPHILS PERCENT AUTO 0.2 % (0.1-1.2); EOSINOPHILS ABSOLUTE AUTO 0.28 K/mm3 (0.04-0.54); EOSINOPHILS PERCENT AUTO 5.4 (0.8-7.0); HEMOGLOBIN 12.8 gm/dl (13.7-17.5); IMMATURE GRAN ABSOLUTE AUTO 0.01 K/mm3 (0.00-0.10); IMMATURE GRAN PERCENT AUTO 0.2 % (<=1.0); LYMPHOCYTES ABSOLUTE AUTO 0.64 K/mm3 (1.32-3.57); LYMPHOCYTES PERCENT AUTO 12.2 % (21.8-53.1); MEAN CORPUSCULAR VOLUME 90.5 fl (79.0-92.2); MEAN PLATELET VOLUME 9.4 fl (9.4-12.3); MONOCYTES PERCENT AUTO 19.1 % (5.3-12.2); NEUTROPHILS ABSOLUTE AUTO 3.29 K/mm3 (1.78-5.38); NEUTROPHILS PERCENT AUTO 62.9 % (34.0-67.9); PLATELET COUNT,PLT 166 K/mm3 (163-337); RED BLOOD CELL COUNT 4.42 M/mm3 (4.63-6.08); WHITE BLOOD CELL COUNT,WBC 5.23 K/mm3 (4.23-9.07)
[2022-10-22] MEDS: Heparin Sodium 5,000 Units/ML Vial SUBCUT SCH ×3 (06:24→23:26)
[2022-10-22 06:55] LABS: ANION GAP 12.6 (5-15); BUN/CREATININE RATIO 13.1 (14-18); CALCIUM 8.7 mg/dL (8.5-10.1); CREATININE 1.3 mg/dL (0.7-1.3); EST CRCL DRUG DOSING (CG) 35.44 mL/min; POTASSIUM,K 3.6 mEq/L (3.5-5.1)
[2022-10-22] MEDS: Aspirin 81 MG Tab.Chew PO SCH (08:59)
[2022-10-22] MEDS: Metoprolol Succinate 25 MG Tab.ER PO SCH (08:59)
[2022-10-22] MEDS ORDERED: Diatrizoate Meglumine/Diatrizoate Sodium 37% 120 ML Bottle PO ONE (09:01)
[2022-10-22] MEDS: Pantoprazole 40 MG Vial IVPUSH SCH (11:12)
[2022-10-23] MEDS: Heparin Sodium 5,000 Units/ML Vial SUBCUT SCH (06:09)
[2022-10-23] MEDS: Insulin Lispro 100 Unit/ML 3 ML KwikPen SUBCUT SCH ×2 (06:14)
[2022-10-23] MEDS ORDERED: Acetaminophen/HYDROcodone 325-5 MG Tab PO PRN (07:55)
[2022-10-23] MEDS ORDERED: HYDROmorphone 0.5 MG/0.5 ML Syringe IVPUSH PRN (07:57)
[2022-10-23] MEDS: Aspirin 81 MG Tab.Chew PO SCH (08:29)
[2022-10-23] MEDS: Pantoprazole 40 MG Vial IVPUSH SCH (08:30)
[2022-10-23 08:44] VITALS: BP 97/68; PULSE 70
[2022-10-23] MEDS ORDERED: Docusate Sodium 100 MG Cap PO SCH (09:00)
== END 2022-10-23 12:00 | disposition home or self-care (01) | DRG 394 ==
LOC: JD.ED 09:37 → JD.MS 14:19
PROVIDERS: ADMIT Hospitalist; ATTEND Hospitalist
PROC: 0D9670Z Drainage of Stomach with Drainage Device, Via Natural or Artificial Opening (ICD-10-PCS; principal; 2022-10-19)
DX: K43.0 Incisional hernia with obstruction, without gangrene (principal); K56.50 Intestinal adhesions [bands], unspecified as to partial versus complete obstruction; N17.9 Acute kidney failure, unspecified; I25.10 Atherosclerotic heart disease of native coronary artery without angina pectoris; E78.00 Pure hypercholesterolemia, unspecified; I10 Essential (primary) hypertension; E11.9 Type 2 diabetes mellitus without complications; K21.9 Gastro-esophageal reflux disease without esophagitis; Z96.659 Presence of unspecified artificial knee joint; K59.09 Other constipation; M19.90 Unspecified osteoarthritis, unspecified site; N40.0 Benign prostatic hyperplasia without lower urinary tract symptoms; G89.29 Other chronic pain; M54.9 Dorsalgia, unspecified; E66.9 Obesity, unspecified; E55.9 Vitamin D deficiency, unspecified; Z90.49 Acquired absence of other specified parts of digestive tract; Z98.890 Other specified postprocedural states; Z79.82 Long term (current) use of aspirin; Z98.49 Cataract extraction status, unspecified eye; Z88.5 Allergy status to narcotic agent; Z79.899 Other long term (current) drug therapy; Z87.442 Personal history of urinary calculi; Z87.81 Personal history of (healed) traumatic fracture; Z68.29 Body mass index [BMI] 29.0-29.9, adult; Z83.3 Family history of diabetes mellitus
CPT/HCPCS: 36415; 74018; 74176; 80053; 81001; 83690; 85025; 96361; 96374; 96375; 99285; J1170; J2405; J3490; J7030; 36410; 74250; 74250-26; 80048; 82947; 99222; 99232; 99238; A9270-GY; C9113; J1644; J1815; J7042

== ENCOUNTER 2023-05-09 15:54 | Emergency (ER) | payer MEDICARE, BC ==
[2023-05-09 17:03] LABS: BASOPHILS PERCENT AUTO 0.4 % (0.0-1.0); EOSINOPHILS ABSOLUTE AUTO 0.1 K/mm3 (0.0-0.4); HEMOGLOBIN 12.6 gm/dl (14.0-18.0); IMMATURE GRAN ABSOLUTE AUTO 0.03 K/mm3 (0.00-0.05); IMMATURE GRAN PERCENT AUTO 0.4 % (0.0-0.4); LYMPHOCYTES ABSOLUTE AUTO 0.9 K/mm3 (1.0-4.8); LYMPHOCYTES PERCENT AUTO 12.8 % (24.0-44.0); MEAN CORPUSCULAR HEMOGLOBIN 29.9 pg (28.0-32.0); MEAN CORPUSCULAR HGB CONC 33.2 g/dl (32.0-36.0); MEAN PLATELET VOLUME 9.3 fl (9.4-12.4); MONOCYTES ABSOLUTE AUTO 0.7 K/mm3 (0.0-0.8); MONOCYTES PERCENT AUTO 10.4 % (0.0-8.0); NEUTROPHILS ABSOLUTE AUTO 5.3 K/mm3 (1.8-7.7); PLATELET COUNT,PLT 161 K/mm3 (150-400); RED BLOOD CELL COUNT 4.22 M/mm3 (4.52-5.90); WHITE BLOOD CELL COUNT,WBC 7.13 K/mm3 (3.9-11.3)
[2023-05-09 17:29] LABS: ALBUMIN 3.3 g/dl (3.4-5.0); ANION GAP 13.2 (5-15); BILIRUBIN TOTAL 0.4 mg/dL (0.2-1.0); BUN/CREATININE RATIO 16.9 (14-18); CALCIUM 9.3 mg/dL (8.5-10.1); CREATININE 1.3 mg/dL (0.7-1.3); EST CRCL DRUG DOSING (CG) 36.02 mL/min; POTASSIUM,K 4.2 mEq/L (3.5-5.1); PROTEIN TOTAL,TP 6.7 g/dl (6.4-8.2)
[2023-05-09] MEDS: Diatrizoate Meglumine/Diatrizoate Sodium 37% 120 ML Bottle PO ONE ×2 (18:12→18:13)
[2023-05-09] MEDS: Sodium Chloride 0.9% 10 ML Syringe FLUSH PRN (18:12)
[2023-05-09] MEDS: Iopamidol 612 MG/ML 100 ML Bottle IVPUSH ONE (18:12)
[2023-05-09 20:03] VITALS: BP 114/98; PULSE 64
== END 2023-05-09 19:37 | disposition home or self-care (01) ==
LOC: JD.ED 15:54
DX: R14.0 Abdominal distension (gaseous) (principal); K59.00 Constipation, unspecified; I10 Essential (primary) hypertension; E78.00 Pure hypercholesterolemia, unspecified; I25.10 Atherosclerotic heart disease of native coronary artery without angina pectoris; K21.9 Gastro-esophageal reflux disease without esophagitis; M19.90 Unspecified osteoarthritis, unspecified site; E11.9 Type 2 diabetes mellitus without complications; Z88.5 Allergy status to narcotic agent; Z79.82 Long term (current) use of aspirin; Z79.899 Other long term (current) drug therapy
CPT/HCPCS: 36415; 74177; 80053; 83605; 85025; 99284; J3490; Q9963; Q9967

== ENCOUNTER 2023-08-27 19:59 | Emergency (ER) | payer MEDICARE, BC ==
[2023-08-27 20:14] VITALS: BP 143/78; PULSE 77
[2023-08-27] MEDS: Lidocaine 1% with EPINEPHrine 1:100,000 10 ML MDV INJECT ONE (21:27)
[2023-08-27] MEDS: Lidocaine 1% with EPINEPHrine 1:100,000 20 ML MDV ONE (22:34)
[2023-08-28] MEDS: Lidocaine 1% with EPINEPHrine 1:100,000 20 ML MDV INJECT ONE (01:42)
[2023-08-28] MEDS ORDERED: Diphtheria,Pertussis(Acell),Tetanus Vaccine 0.5 ML Syringe ONE (01:58)
[2023-08-28] MEDS: Diphtheria,Pertussis(Acell),Tetanus Vaccine 0.5 ML Syringe IM ONE (02:02)
[2023-08-28] MEDS: Cephalexin 500 MG Cap PO ONE (02:20)
== END 2023-08-28 02:25 | disposition home or self-care (01) ==
LOC: JD.ED 19:59
DX: S60.450A Superficial foreign body of right index finger, initial encounter (principal); I10 Essential (primary) hypertension; E11.9 Type 2 diabetes mellitus without complications; I25.10 Atherosclerotic heart disease of native coronary artery without angina pectoris; E78.00 Pure hypercholesterolemia, unspecified; K21.9 Gastro-esophageal reflux disease without esophagitis; E66.9 Obesity, unspecified; Z79.82 Long term (current) use of aspirin; Z79.899 Other long term (current) drug therapy; Z23 Encounter for immunization; Z88.5 Allergy status to narcotic agent; W45.8XXA Other foreign body or object entering through skin, initial encounter
CPT/HCPCS: 10120; 90471; 90715; 99283; A9270; J3490

== ENCOUNTER 2023-12-09 19:55 | Observation (INO) | payer MEDICARE, BC ==
[2023-12-09] MEDS ORDERED: Naloxone 0.4 MG/ML SDV IVPUSH PRN (20:55)
[2023-12-09] MEDS ORDERED: Sodium Chloride 0.9% 10 ML Syringe FLUSH PRN (20:55)
[2023-12-09] MEDS ORDERED: Sodium Chloride 0.9% 100 ML IV SCH (21:15)
[2023-12-09] MEDS: HYDROmorphone 0.5 MG/0.5 ML Syringe IVPUSH ONE (21:33)
[2023-12-09] MEDS: Ondansetron 4 MG/2 ML SDV IVPUSH ONE (21:34)
[2023-12-09] MEDS: Iopamidol 755 Mg/ML 100 ML Bottle IVPUSH ONE (21:43)
[2023-12-09] MEDS: Sodium Chloride 0.9% 10 ML Syringe FLUSH ONE (21:43)
[2023-12-09 21:58] LABS: BASOPHILS PERCENT AUTO 0.2 % (0.0-1.0); EOSINOPHILS PERCENT AUTO 0.1 % (0.0-6.0); HEMATOCRIT 42.8 % (42.0-52.0); HEMOGLOBIN 14.1 gm/dl (14.0-18.0); IMMATURE GRAN ABSOLUTE AUTO 0.06 K/mm3 (0.00-0.05); IMMATURE GRAN PERCENT AUTO 0.4 % (0.0-0.4); LYMPHOCYTES ABSOLUTE AUTO 0.4 K/mm3 (1.0-4.8); LYMPHOCYTES PERCENT AUTO 2.9 % (24.0-44.0); MEAN CORPUSCULAR HEMOGLOBIN 29.7 pg (28.0-32.0); MEAN CORPUSCULAR HGB CONC 32.9 g/dl (32.0-36.0); MEAN CORPUSCULAR VOLUME 90.1 fl (83.0-99.0); MEAN PLATELET VOLUME 9.4 fl (9.4-12.4); NEUTROPHILS ABSOLUTE AUTO 12.7 K/mm3 (1.8-7.7); NEUTROPHILS PERCENT AUTO 89.4 % (41.0-71.0); PLATELET COUNT,PLT 157 K/mm3 (150-400); RED BLOOD CELL COUNT 4.75 M/mm3 (4.52-5.90); WHITE BLOOD CELL COUNT,WBC 14.26 K/mm3 (3.9-11.3)
[2023-12-09 22:28] LABS: A/G RATIO 1.1 (1-2); ALBUMIN 3.2 g/dl (3.4-5.0); ANION GAP 14.5 (5-15); BILIRUBIN TOTAL 0.5 mg/dL (0.2-1.0); BUN/CREATININE RATIO 12.9 (14-18); CALCIUM 8.9 mg/dL (8.5-10.1); CREATININE 1.4 mg/dL (0.7-1.3); EST CRCL DRUG DOSING (CG) 32.28 mL/min; PROTEIN TOTAL,TP 6.2 g/dl (6.4-8.2)
[2023-12-09 22:36] LABS: POTASSIUM,K 4.5 mEq/L (3.5-5.1)
[2023-12-10] MEDS: Ondansetron 4 MG/2 ML SDV IVPUSH ONE (01:16)
[2023-12-10] MEDS ORDERED: 50% Dextrose in Water 50 ML Syringe IVPUSH PRN (01:42)
[2023-12-10] MEDS ORDERED: Glucagon,Human Recombinant 1 MG Vial IM PRN (01:42)
[2023-12-10] MEDS ORDERED: HYDROmorphone 0.5 MG/0.5 ML Syringe IVPUSH PRN ×2 (01:43→10:31)
[2023-12-10] MEDS ORDERED: Ondansetron 4 MG/2 ML SDV IVPUSH PRN (01:43)
[2023-12-10] MEDS: Dextrose 5%-0.45% NaCl 1,000 ML IV SCH (02:07)
[2023-12-10 02:20] LABS: APPEARANCE,URINE CLEAR (Clear); BILIRUBIN,URINE NEGATIVE (Negative); COLOR,URINE YELLOW (Yellow); GLUCOSE,URINE NEGATIVE (Negative); KETONES,URINE NEGATIVE (Negative); LEUKOCYTE ESTERASE,URINE NEGATIVE (Negative); NITRITE,URINE NEGATIVE (Negative); OCCULT BLOOD,URINE NEGATIVE (Negative); PH,URINE 5.5 (5.0-8.0); PROTEIN,URINE NEGATIVE (Negative); UROBILINOGEN,URINE 0.2 (0.2-1.0)
[2023-12-10 04:53] LABS: BASOPHILS PERCENT AUTO 0.2 % (0.0-1.0); EOSINOPHILS ABSOLUTE AUTO 0.1 K/mm3 (0.0-0.4); EOSINOPHILS PERCENT AUTO 0.6 % (0.0-6.0); HEMATOCRIT 39.4 % (42.0-52.0); HEMOGLOBIN 13.1 gm/dl (14.0-18.0); IMMATURE GRAN ABSOLUTE AUTO 0.07 K/mm3 (0.00-0.05); IMMATURE GRAN PERCENT AUTO 0.5 % (0.0-0.4); LYMPHOCYTES ABSOLUTE AUTO 0.4 K/mm3 (1.0-4.8); LYMPHOCYTES PERCENT AUTO 3.1 % (24.0-44.0); MEAN CORPUSCULAR HEMOGLOBIN 29.6 pg (28.0-32.0); MEAN CORPUSCULAR HGB CONC 33.2 g/dl (32.0-36.0); MEAN CORPUSCULAR VOLUME 88.9 fl (83.0-99.0); MEAN PLATELET VOLUME 9.7 fl (9.4-12.4); MONOCYTES PERCENT AUTO 7.4 % (0.0-8.0); NEUTROPHILS ABSOLUTE AUTO 12.4 K/mm3 (1.8-7.7); NEUTROPHILS PERCENT AUTO 88.2 % (41.0-71.0); PLATELET COUNT,PLT 164 K/mm3 (150-400); RED BLOOD CELL COUNT 4.43 M/mm3 (4.52-5.90); WHITE BLOOD CELL COUNT,WBC 14.04 K/mm3 (3.9-11.3)
[2023-12-10 05:23] LABS: ALBUMIN 2.9 g/dl (3.4-5.0); ANION GAP 11.8 (5-15); BILIRUBIN TOTAL 0.5 mg/dL (0.2-1.0); BUN/CREATININE RATIO 16.2 (14-18); CALCIUM 8.9 mg/dL (8.5-10.1); CREATININE 1.3 mg/dL (0.7-1.3); EST CRCL DRUG DOSING (CG) 34.76 mL/min; POTASSIUM,K 4.8 mEq/L (3.5-5.1); PROTEIN TOTAL,TP 5.8 g/dl (6.4-8.2)
[2023-12-10] MEDS: Insulin Lispro 100 Unit/ML 3 ML KwikPen SUBCUT SCH (08:08)
[2023-12-10] MEDS ORDERED: traMADol 50 MG Tab PO PRN (10:31)
[2023-12-10] MEDS ORDERED: Ibuprofen 600 MG Tab PO SCH (10:45)
[2023-12-10] MEDS: Acetaminophen 325 MG Tab PO SCH (12:22)
[2023-12-10] MEDS: Levofloxacin/Dextrose 5%-Water 750 MG in Premix Bag 1 BAG IV SCH (12:22)
[2023-12-10] MEDS: Lactated Ringers 1,000 ML IV SCH (12:22)
[2023-12-10] MEDS: Finasteride 5 MG Tab PO SCH (12:23)
[2023-12-10] MEDS: Allopurinol 100 MG Tab PO SCH (12:23)
[2023-12-10] MEDS: Lisinopril 5 MG Tab PO SCH (12:23)
[2023-12-10] MEDS: Tamsulosin 0.4 MG Cap.ER PO SCH (12:23)
[2023-12-10] MEDS: Metoprolol Succinate 25 MG Tab.ER PO SCH (12:25)
[2023-12-10] MEDS: Aspirin 81 MG Tab.Chew PO SCH (12:25)
[2023-12-10] MEDS: metroNIDAZOLE/Normal Saline 500 MG in Premix Bag 1 BAG IV SCH (16:06)
[2023-12-10] MEDS: Lactated Ringers 500 ML IV ONE (17:23)
[2023-12-10] MEDS: atorvaSTATin 40 MG Tab PO SCH (21:57)
[2023-12-10] MEDS: Cholecalciferol (Vitamin D3) 5,000 UNIT Cap PO SCH (21:57)
[2023-12-10] MEDS: Pantoprazole 40 MG Tab.CR PO SCH (21:57)
[2023-12-11] MEDS: metroNIDAZOLE/Normal Saline 500 MG in Premix Bag 1 BAG IV SCH (00:08)
[2023-12-11 09:46] LABS: BASOPHILS PERCENT AUTO 0.1 % (0.0-1.0); EOSINOPHILS ABSOLUTE AUTO 0.1 K/mm3 (0.0-0.4); EOSINOPHILS PERCENT AUTO 1.5 % (0.0-6.0); HEMATOCRIT 37.9 % (42.0-52.0); HEMOGLOBIN 12.4 gm/dl (14.0-18.0); IMMATURE GRAN ABSOLUTE AUTO 0.03 K/mm3 (0.00-0.05); IMMATURE GRAN PERCENT AUTO 0.4 % (0.0-0.4); LYMPHOCYTES ABSOLUTE AUTO 0.6 K/mm3 (1.0-4.8); LYMPHOCYTES PERCENT AUTO 8.1 % (24.0-44.0); MEAN CORPUSCULAR HEMOGLOBIN 29.9 pg (28.0-32.0); MEAN CORPUSCULAR HGB CONC 32.7 g/dl (32.0-36.0); MEAN CORPUSCULAR VOLUME 91.3 fl (83.0-99.0); MEAN PLATELET VOLUME 9.1 fl (9.4-12.4); MONOCYTES ABSOLUTE AUTO 0.8 K/mm3 (0.0-0.8); MONOCYTES PERCENT AUTO 10.5 % (0.0-8.0); NEUTROPHILS ABSOLUTE AUTO 5.8 K/mm3 (1.8-7.7); NEUTROPHILS PERCENT AUTO 79.4 % (41.0-71.0); PLATELET COUNT,PLT 167 K/mm3 (150-400); RED BLOOD CELL COUNT 4.15 M/mm3 (4.52-5.90)
[2023-12-11 10:20] LABS: ANION GAP 11.5 (5-15); BUN/CREATININE RATIO 13.6 (14-18); CALCIUM 8.9 mg/dL (8.5-10.1); CREATININE 1.4 mg/dL (0.7-1.3); EST CRCL DRUG DOSING (CG) 32.28 mL/min; MAGNESIUM 1.8 mg/dL (1.8-2.4); POTASSIUM,K 4.5 mEq/L (3.5-5.1)
[2023-12-12 05:37] LABS: BASOPHILS PERCENT AUTO 0.4 % (0.0-1.0); EOSINOPHILS ABSOLUTE AUTO 0.1 K/mm3 (0.0-0.4); EOSINOPHILS PERCENT AUTO 2.1 % (0.0-6.0); IMMATURE GRAN ABSOLUTE AUTO 0.03 K/mm3 (0.00-0.05); IMMATURE GRAN PERCENT AUTO 0.4 % (0.0-0.4); LYMPHOCYTES ABSOLUTE AUTO 0.7 K/mm3 (1.0-4.8); LYMPHOCYTES PERCENT AUTO 10.6 % (24.0-44.0); MEAN CORPUSCULAR HEMOGLOBIN 29.9 pg (28.0-32.0); MEAN CORPUSCULAR HGB CONC 33.3 g/dl (32.0-36.0); MEAN CORPUSCULAR VOLUME 89.6 fl (83.0-99.0); MONOCYTES ABSOLUTE AUTO 0.9 K/mm3 (0.0-0.8); MONOCYTES PERCENT AUTO 12.5 % (0.0-8.0); PLATELET COUNT,PLT 163 K/mm3 (150-400); RED BLOOD CELL COUNT 4.02 M/mm3 (4.52-5.90); WHITE BLOOD CELL COUNT,WBC 6.79 K/mm3 (3.9-11.3)
[2023-12-12] MEDS: Lactated Ringers 1,000 ML IV SCH (06:01)
[2023-12-12 06:10] LABS: ANION GAP 11.1 (5-15); BUN/CREATININE RATIO 11.4 (14-18); CALCIUM 8.8 mg/dL (8.5-10.1); CREATININE 1.4 mg/dL (0.7-1.3); EST CRCL DRUG DOSING (CG) 32.28 mL/min; MAGNESIUM 1.7 mg/dL (1.8-2.4); PHOSPHORUS 3.1 mg/dL (2.6-4.7); POTASSIUM,K 4.1 mEq/L (3.5-5.1)
[2023-12-12] MEDS: Magnesium Sulfate/Water 2 GM in Premix Bag 1 BAG IV ONE (09:04)
[2023-12-12] MEDS: Levofloxacin 750 MG Tab PO SCH (11:14)
[2023-12-12] MEDS: metroNIDAZOLE 500 MG Tab PO SCH (11:14)
[2023-12-12 12:07] VITALS: BP 103/55; PULSE 51
== END 2023-12-12 13:03 | disposition home or self-care (01) ==
LOC: JD.ED 19:55 → INTOOBSV 12-10 01:19 → JD.MS 12-10 01:19
PROVIDERS: ADMIT Student in an Organized Health Care Education/Training Program; ATTEND Student in an Organized Health Care Education/Training Program
DX: K52.9 Noninfective gastroenteritis and colitis, unspecified (principal); I25.10 Atherosclerotic heart disease of native coronary artery without angina pectoris; E78.00 Pure hypercholesterolemia, unspecified; I10 Essential (primary) hypertension; K21.9 Gastro-esophageal reflux disease without esophagitis; E11.9 Type 2 diabetes mellitus without complications; E66.9 Obesity, unspecified; Z79.82 Long term (current) use of aspirin; Z79.899 Other long term (current) drug therapy; Z88.5 Allergy status to narcotic agent; Z68.30 Body mass index [BMI] 30.0-30.9, adult; Z87.891 Personal history of nicotine dependence
CPT/HCPCS: 36415; 74177; 80048; 80053; 81003; 82947; 83605; 83735; 84100; 85025; 87045; 87046; 87328; 87329; 87505; 87507; 87899; 96361; 96365; 96366; 96367; 96374; 96375; 96376; 99285; A9270; G0378; J1170; J1836; J1956; J2405; J3475; J3490; J7120; J7799; Q9967; 99284